=== PATIENT | female | born 1995 | race Caucasian/White ===

== ENCOUNTER 2018-02-22 11:53 | Emergency (ER) | payer OTHER, SELFPAY ==
[2018-02-22 11:54] VITALS: BP 102/54; PULSE 71; RESP 18; TEMP 36.6; O2SAT 99; BMI 21.6
--- NOTE | 2018-02-22 12:21 | EKG12_ITS ---
Test Reason : CHEST OTHER Blood Pressure : / mmHG Vent. Rate : 063 BPM Atrial Rate : 063 BPM P-R Int : 124 ms QRS Dur : 080 ms QT Int : 430 ms P-R-T Axes : -09 065 048 degrees QTc Int : 440 ms Normal sinus rhythm with sinus arrhythmia Normal ECG Confirmed by OJ FOY, MELBA ([id number]), editor in chief newspaper NORM LOCKETT ([id number]) on 03/01/2018 3:23:22 PM Referred By: DIONNE Confirmed By:MELBA MCWILLIAMS MD
--- NOTE | 2018-02-22 12:23 | ED.RN ---
NO OLD EKG'S IN MUSE.
--- NOTE | 2018-02-22 12:35 | RAD_ITS ---
STUDY: X-RAY CHEST REASON FOR EXAM: Female, 22 years old. Anterior left lower chest pain. No known injury. TECHNIQUE: PA and lateral views of the chest. COMPARISON: None. FINDINGS: The lungs are clear and expanded. There is no demonstrated pleural abnormality. Normal size heart. Normal mediastinum and rody. Normal visualized pulmonary arteries. Normal visualized aortic arch and descending thoracic aorta. Normal visualized thoracic spine. Normal visualized ribs, clavicles, and shoulders. There is no demonstrated abnormality of the visualized soft tissue structures of the upper abdomen. RAD/Chest PA and Lateral IMPRESSION: Normal x-ray examination of the chest. Electronically Signed: Tyrese Cuevas MD at 12:49 EDT Tel [phone], Service support ,
[2018-02-22 12:46] LABS: Absolute Lymphocyte Count 1.85 X10^3/ul (0.83-4.51); Absolute Neutrophil Count 2.9 X10^3/uL (2.0-7.7); Basophil# 0.01 X10^3/uL; Basophil% 0.2 % (0-1); Eosinophil# 0.09 X10^3/uL; Eosinophils% 1.7 % (0-5); Hemoglobin 13.6 g/dl (12.0-15.0); Lymphocyte # 1.85 X10^3/ul (4.0); Lymphocyte % 34.5 % (19-41); Mean Corpuscular Volume 88.3 fL (81-99); Mean Platelet Vol. 9.7 fl (6.2-12.0); Monocyte# 0.48 X10^3/uL; Monocyte% 8.9 % (0-10); Neutrophil # 2.93 X10^3/uL (2.7-7.7); Neutrophil % 54.5 % (47-70); POSITIVE COUNT NO; POSITIVE DIFFERENTIAL NO; POSITIVE MORPHOLOGY NO; Platelet Count 242 K/mm3 (150-450); RBC Distribution Width CV 12.3 % (11.6-14.6); RBC Distribution Width SD 39.5 fl (35.1-43.9); Red Blood Count 4.53 M/mm3 (4.2-5.4); White Blood Count 5.4 K/mm3 (4.4-11.0)
[2018-02-22 12:51] LABS: International Normalized Ratio 1.1; Prothrombin Time (Protime)PT. 13.7 SECONDS (11.7-14.9)
[2018-02-22 12:58] LABS: Anion Gap 7 (5-15); BUN 7 mg/dL (7-18); BUN/Creat Ratio 11.3 RATIO (10-20); Calcium,Total 8.6 mg/dL (8.5-10.1); Chloride 105 mmol/L (98-107); Creatinine, Serum 0.62 mg/dL (0.55-1.02); EST Glomerular Filtration Rate 129 mL/min (>60); Est Glom Filt Rate - Afr Amer 156 mL/min (>60); Estimated Creatinine Clearance 129.16 ml/min; Glucose 82 mg/dL (74-106); Potassium 3.9 mmol/L (3.5-5.1); Sodium Level 138 mmol/L (136-145)
--- NOTE | 2018-02-22 13:00 | CT_ITS ---
STUDY: CTA CHEST REASON FOR EXAM: Female, 22 years old. 2 day history of left-sided chest pain and rib pain. RADIATION DOSAGE (If Supplied By Facility): CTDIvol = ( 5.78 ) mGy, DLP = ( 194.48 ) mGycm TECHNIQUE: The examination was performed with the intravenous administration of 75 ml of Isovue 370 contrast material. Post-processing of the angiographic images was performed, with multiplanar reformation and 3D reconstruction. Individualized dose optimization techniques were used for this CT. COMPARISON: Comparison is made with prior chest radiograph done earlier in the day. FINDINGS: Normal enhancement of the main pulmonary artery and right and left pulmonary arteries. Normal enhancement of the bilateral peripheral pulmonary arteries. There is no demonstrated pulmonary embolism. Normal thoracic aorta and visualized great vessels. There is no demonstrated aortic dissection. Normal heart and pericardium. Normal mediastinum. Normal hilar regions. Normal visualized trachea and bronchi. The lungs are well expanded. Normal pulmonary parenchyma. Normal pleura. Normal chest wall structures. Normal osseous structures. Normal visualized upper abdomen. CT/CTA Chest W/WO Contrast IMPRESSION: Normal CTA chest examination, without a demonstrated pulmonary embolism or arterial dissection. Electronically Signed: Tyrese Cuevas MD at 15:02 EDT Tel [phone], Service support ,
[2018-02-22 13:25] VITALS: BP 113/67; PULSE 67; RESP 18; O2SAT 98
--- NOTE | 2018-02-22 15:11 | ED.VISSUMM ---
- ER Visit Summary Date of Service: 02/22/18 Chief Complaint: Chest pain History of Present Illness: The patient is a 22 F who presents with chest pain. She noted it suddenly yesterday while driving home. She complains of left lower sharp stabbing chest pain. This is sometimes worse with deep breathing. She states it is relieved by holding onto it or applying some pressure. She does intermittently feel short of breath as well. She has had diarrhea for the last 3 days but review of systems is otherwise negative. Patient denies history of DVT or pulmonary embolism recent travel or surgery no known cancer. No known coagulopathy. She has not a smoker. She has however on oral control. Physical Examination: Afebrile vitals are normal Moist mucous membranes Heart regular rate and rhythm Lungs are clear Abdomen soft Extremities nontender without edema Alert Test Results: EKG shows normal sinus rhythm at a rate of 63. CBC BMP coagulation studies troponin all normal. Chest x-ray normal. CTA of the chest normal. Emergency Department Course and Treatment: Patient's presentation was concerning to me for possible pneumothorax or pulmonary embolism. Workup as above is normal. Given her stable vitals and negative workup I do not believe her symptoms are due to any serious or life-threatening pathology. She was advised to follow-up with her primary care physician. She does understand return for new or worsening symptoms. Treatment Plan: [] Disposition: Discharge Impression: Chest pain This note was generated with [employer] dictation software. It may contain incorrect words, spelling, and punctuation that were not noted in review of the chart prior to signing ED Disposition - Plan for ED Patient: Chief Complaint: Chest Other Referrals: Jennifer Veronica MD [Primary Care Provider] -
--- NOTE | 2018-02-22 15:13 | ED.DEP ---
ED Disposition - Plan for ED Patient: Chief Complaint: Chest Other Instructions: ED Chest Pain Pleurisy Referrals: Jennifer Veronica MD [Primary Care Provider] -
[2018-02-22 15:36] VITALS: BP 105/62; PULSE 68; RESP 14; O2SAT 98
== END 2018-02-22 15:38 | disposition home or self-care (01) ==
PROVIDERS: Emergency Provider Emergency Medicine; Family Provider Pediatrics; PCP Pediatrics
DX: R07.9 Chest pain, unspecified (principal); R19.7 Diarrhea, unspecified; R06.02 Shortness of breath
CPT/HCPCS: 71046; 71275; 80048; 84484; 85025; 85610; 93005; 99284; Q9967; A4216

== ENCOUNTER 2019-07-29 19:00 | Emergency (ER) | payer OTHER, BC, SELFPAY ==
[2019-07-29 19:01] VITALS: BP 116/79; PULSE 81; RESP 17; TEMP 36.3; O2SAT 99; BMI 22.9
[2019-07-29] MEDS: 0.9% Normal Saline 1,000 ML 1000 ML IV (20:21)
[2019-07-29] MEDS: Morphine 4 MG/ML Syringe IV (20:21)
[2019-07-29 20:36] LABS: Absolute Lymphocyte Count 2.24 X10^3/uL (0.83-4.51); Absolute Neutrophil Count 6.2 X10^3/uL (2.0-7.7); Basophil# 0.05 X10^3/uL; Basophil% 0.5 % (0-1); Eosinophil# 0.03 X10^3/uL; Eosinophils% 0.3 % (0-5); Hematocrit 40.3 % (37-47); Hemoglobin 13.6 g/dL (12.0-15.0); Lymphocyte # 2.24 X10^3/ul (4.0); Lymphocyte % 24.6 % (19-41); Mean Corp Hgb Conc 33.7 g/dL (32-36); Mean Corpuscular Hgb 30.3 pg (27.0-32.0); Mean Corpuscular Volume 89.8 fL (81-99); Monocyte# 0.55 X10^3/uL; NRBC Flagged by Analyzer 0 % (0-5); Neutrophil % 68.3 % (47-70); Platelet Count 246 K/mm3 (150-450); RBC Distribution Width CV 11.9 % (11.6-14.6); RBC Distribution Width SD 38.6 fl (35.1-43.9); Red Blood Count 4.49 M/mm3 (4.2-5.4); White Blood Count 9.1 K/mm3 (4.4-11.0)
[2019-07-29 20:54] LABS: ALB/GLOB Ratio 1.1 RATIO (0.9-2.4); AST(SGOT) 12 U/L (15-37); Alanine Aminotransfer ALT/SGPT 17 U/L (13-56); Alkaline Phosphatase 43 U/L (45-117); Anion Gap 3 (5-15); BUN 11 mg/dL (7-18); Calcium,Total 9.2 mg/dL (8.5-10.1); Chloride 107 mmol/L (98-107); Creatinine, Serum 0.73 mg/dL (0.55-1.02); EST Glomerular Filtration Rate 105 mL/min (>60); Est Glom Filt Rate - Afr Amer 127 mL/min (>60); Estimated Creatinine Clearance 108.77 ml/min; Globulin 3.5 g/dL (2.2-4.2); Glucose 82 mg/dL (74-106); Potassium 3.6 mmol/L (3.5-5.1); Protein, Total 7.5 g/dL (6.4-8.2); Sodium Level 139 mmol/L (136-145)
--- NOTE | 2019-07-29 21:16 | US_ITS ---
HISTORY: Pelvic pain for one month getting worse. Spotting. LMP 07/06/2019. 73 images. Comparison study most recently is a CT scan of the abdomen and pelvis from October 22, 2011 Findings: Endovaginal imaging only: A physiologic amount of free fluid is present. The uterus is 7.3 x 4.1 x 5.3 cm. Myometrium is homogeneous. The endometrial stripe is homogeneous, and measured at 11 mm thick. The cervix is closed. Color Doppler imaging over the myometrium demonstrates flow, but a tiny amount of flow is also suggested centrally within the endometrial canal on one of many images only. The left ovary measures 2.5 x 1.6 x 2.1 cm. Color Doppler and pulse-wave Doppler imaging suggest arterial flow the left ovarian parenchyma. The right ovary measures 2.8 x 1.3 x 1.7 cm. Color Doppler and pulse Doppler imaging suggest arterial flow to right ovarian parenchyma. US/Transvaginal Non- IMPRESSION: No pathology perceived. Small volume of pelvic fluid likely physiologic. at 2226 Reported and signed by: Roni Gamboa MD Electronically Signed: Roni Gamboa MD at 22:25 EST Tel , Service support ,
[2019-07-29 21:19] LABS: Bacteria 0 SEEN /hpf (None Seen); Mucous, Urine 0 SEEN /hpf (<or=2+); Red Blood Cells-Urine 0 SEEN /hpf (0-5); White Blood Cells 0 SEEN /hpf (0-5)
[2019-07-29 21:28] LABS: Color, Urine Yellow (Yellow); Glucose, Dipstick Normal (Normal); Ketone-Dipstick 15 mg/dl (Negative); Leukocyte Esterase-Dipstick Negative /ul (Negative); Nitrite-Dipstick Negative (Negative); Occult Blood-Urine Negative /ul (Negative); Protein-Dipstick Negative (Negative); Specific Gravity, Urine 1.015 (1.002-1.030); Urine Bilirubin Dipstick Negative (Negative); Urine Clarity Sl. Cloudy (Clear); Urine Urobilinogen Normal (Normal)
[2019-07-29 21:41] LABS: Squamous Epithelial Cells - UA 0-5 SEEN /hpf (5-10)
[2019-07-29 21:51] LABS: Internal QC Validated? YES +Cl - CLEAR BKGD; Pregnancy, Serum, hCG Quali. NEGATIVE Negative
--- NOTE | 2019-07-29 22:44 | ED.VISSUMM ---
- ER Visit Summary Date of Service: 07/29/19 Chief Complaint: Pelvic pain History of Present Illness: The patient is a 23 F who presents with pelvic pain that has been constant for the past month but became worse today. Patient describes her pain as cramping and stabbing. Patient states the pain is over the suprapubic area. Patient states she has been taking Tylenol and ibuprofen with no relief. Patient states her pain does improve slightly when she takes a bath. Patient states she is scheduled for an ultrasound next Thursday but her pain became worse tonight. Patient denies any dysuria or hematuria. Admits to some mild spotting and mild vaginal discharge. Patient states her last menstrual period was 07/06/2019 and was normal. Physical Examination: Vital signs are stable. Patient is afebrile. Patient is in no acute distress. Oral mucosa is pink and moist. Neck is supple. Trachea is midline. There is no JVD. Heart was regular rate and rhythm. Lungs are clear and equal bilaterally. Abdomen is soft. Bowel sounds are normal. There is some mild lower abdominal tenderness. There is no rebound or guarding noted. Cranial nerves II through XII are intact. There are no focal motor or sensory deficits noted. Test Results: CBC, comprehensive metabolic profile, urinalysis, and serum hCG were obtained were all within normal limits. Pelvic ultrasound was obtained. There is no acute abnormality. There is no ovarian torsion or ectopic . These were interpreted by the radiologist and reviewed by myself. Emergency Department Course and Treatment: Patient was given a dose of morphine here. Patient was given IV fluids. Patient was advised of her findings. Patient was instructed to follow-up with her PAEDODONTIST in 3 to 5 days for further evaluation. Patient understood and was agreeable with the plan. All questions were answered. Disposition: Discharge home Impression: Pelvic pain This note was generated with [employer] dictation software. It may contain incorrect words, spelling, and punctuation that were not noted in review of the chart prior to signing ED Disposition - Plan for ED Patient: Disposition: Home or Assisted Living Diagnosis: Pelvic pain Instructions: PELVIC PAIN, Unknown Cause Prescriptions: Naproxen [Naprosyn] 500 mg PO BID PRN #20 tab Prescription Printed Referrals: Care Physician,No Primary [Primary Care Provider] - Adriane Jimenez NP-C [Nurse Practitioner] - 5-7 Days
[2019-07-29 23:04] VITALS: BP 106/52; PULSE 55
== END 2019-07-29 23:05 | disposition home or self-care (01) ==
PROVIDERS: Emergency Provider Emergency Medicine
DX: R10.2 Pelvic and perineal pain (principal); N89.8 Other specified noninflammatory disorders of vagina
CPT/HCPCS: 76830; 80053; 81001; 84703; 85025; 93976; 96361; 96374; 99284; J7030; A4216

== ENCOUNTER 2020-11-29 08:48 | Day surgery (SDC) | payer BC, SELFPAY ==
--- NOTE | 2020-11-21 16:13 | HP.PCM_ITS ---
History and Physical Date of Admission: 11/29/20 Alda Fountain MD Physician Specialty: GENERAL MANAGER ROAD PRODUCTION H&P ? Signed Encounter Date: 11/21/2020 Expand AllCollapse All Expand All by Default Hide copied text Hover for details Pre-Op History and Physical ? HPI: The patient is a 37 year old female presenting for discussion regarding permanent sterilization. Pt currently on ocps- would like to continue with laparoscopic bilateral salpingectomy and continue OCPS for ovarian cyst suppression. ? She is scheduled for laparoscpic bilateral salpingectomy, for desires permanent sterilization on 11/29/20. Procedure discussed along with risks, benefits and complications. Other alternatives discussed for management. Consent form signed? Yes. ? ? PAST MEDICAL HISTORY PAST MEDICAL HISTORY Diagnosis Date ? Bilateral ovarian cysts ? ? ? PAST SURGICAL HISTORY PAST SURGICAL HISTORY Procedure Laterality Date ? DELIVERY ONLY ? 03/30/14 ? , low transverse ? PAST SURGICAL HISTORY OF ? ? ? lazy eye repair ? REMOVAL OF TONSILS,<12 Y/O ? ? ? Tonsillectomy ? ? ? CURRENT MEDICATIONS Current Outpatient Medications Medication Sig Dispense Refill ? norgestimate 0.25 mg-ethinyl estradiol 35 mcg (SPRINTEC) 0.25-35 mg-mcg per tablet Take continuously as directed. 3 Package 6 ? No current facility-administered medications for this visit. ? ? ALLERGIES: Seasonal Allergies ? PERSONAL HISTORY: SOCIAL HISTORY Social History ? Tobacco Use ? Smoking status: Never Smoker ? Smokeless tobacco: Never Used Vaping Use ? Vaping Use: Never used Substance Use Topics ? Alcohol use: No ? Drug use: No ? FAMILY HISTORY: FAMILY HISTORY FAMILY HISTORY Problem Relation Age of Onset ? Lipids Father ? ? Diabetes Other ? ? MGGM ? ? REVIEW OF SYMPTOMS: negative except as noted above PHYSICAL EXAMINATION: ? VITALS: Blood pressure 102/60, height 5' 5 (1.651 m), weight 147 lb (66.7 kg), last menstrual period 10/01/2015. ? GENERAL: The patient is well nourished, well hydrated in no acute distress. , The patient is oriented to time, place, and person. NECK: full range of motion ? I Alda Fountain MD Physician Specialty: GENERAL [address] PRODUCTION H&P ? Signed Encounter Date: 11/20/2020 Expand AllCollapse All Expand All by Default Hide copied text Hover for details Pre-Op History and Physical ? HPI: The patient is a 25 year old female presenting for discussion regarding painful heavy menses and possible EM polyp found on ultrasound. Pt was given management options and would like to proceed with surgical intervention with Hysteroscopy, D&C, polypectomy. Pt reports doing well with new pill- had menses still heavy and did have a couple days of light spotting after stopping menses. ? She is scheduled for Hysteroscopy D&C and polypectomy, for AUB, Endometrial polyp on 11/29/20. Procedure discussed along with risks, benefits and complications. Other alternatives discussed for management. Consent form signed? Yes. ? ? PAST MEDICAL HISTORY PAST MEDICAL HISTORY Diagnosis Date ? Abdominal pain, right lower quadrant ? ? Suspected ruptured ovarian cyst ? Acute appendicitis without mention of peritonitis 03/25/2011 ? Dysmenorrhea ? ? HSV (herpes simplex virus) anogenital infection 2016 ? PMH - PAST MEDICAL HISTORY OF 11/06/2001 ? color vision - normal ? PMH - PAST MEDICAL HISTORY OF ? ? Started Menstrual Period 04/02 ? ? PAST SURGICAL HISTORY PAST SURGICAL HISTORY Procedure Laterality Date ? LAPAROSCOPY, SURGICAL, APPENDECTOMY ? 03/25/11 ? ? ? CURRENT MEDICATIONS Current Outpatient Medications Medication Sig Dispense Refill ? valACYclovir (VALTREX) 500 mg tablet Take 1 tablet by mouth twice daily. 14 tablet 3 ? L-Norgest and E Estradiol-E Estrad (SEASONIQUE) 0.15 mg-30 mcg (84)/10 mcg (7) Take 1 tablet by mouth once daily. 1 Package 4 ? No current facility-administered medications for this visit. ? ? ALLERGIES: Patient has no known allergies. ? PERSONAL HISTORY: SOCIAL HISTORY Social History ? Tobacco Use ? Smoking status: Never Smoker ? Smokeless tobacco: Never Used Vaping Use ? Vaping Use: Never used Substance Use Topics ? Alcohol use: No ? Drug use: No ? FAMILY HISTORY: FAMILY HISTORY FAMILY HISTORY Problem Relation Age of Onset ? other (Kidney Stones) Mother ? ? other (Crohn's) Mother ? ? other (congenital hip disease) Father ? ? Hypertension Maternal Grandmother ? ? Cancer Maternal Grandfather ? ? Cancer Paternal Grandfather ? ? Paternal side ? Cancer Maternal Uncle ? ? Hodgkins ? ? REVIEW OF SYMPTOMS: negative except as noted above PHYSICAL EXAMINATION: ? VITALS: Blood pressure 108/60, height 5' 6 (1.676 m), weight 135 lb (61.2 kg), last menstrual period 11/01/2020. ? GENERAL: The patient is well nourished, well hydrated in no acute distress. , The patient is oriented to time, place, and person. NECK: full range of motion ? IMPRESSION: AUB, endometrial polyp ? PLAN: Hysterscopy, D&C, polypectomy with symphion. ? Pt has been counseled on risks/benefits and alternatives of surgery including but not limited to anesthesia, bleeding, infection, uterine perforation with subsequent injury to pelvic structures including bowel, bladder, ureters and vessels. Pt wishes to proceed with surgery at this time. ? Covid testing reviewed- not vaccinated ? ? ? I have reviewed and updated past medical and surgical history, medications and allergies Alda Fountain MD ?8:41 AM Office Visit on 11/20/2020 Office Visit on 11/20/2020 Note shared with patient
[2020-11-29] VITALS (11 sets, daily range): BP systolic 101–112; BP diastolic 58–74; PULSE 59–71; RESP 16–18; TEMP 36.6–36.8; O2SAT 97–100; BMI 22.0
[2020-11-29] MEDS: Lactated Ringers 1,000 ML 100 ML IV ×3 (08:45→11:25)
[2020-11-29 09:08] LABS: Internal QC Validated? YES +Cl - CLEAR BKGD; Pregnancy, Urine Negative Negative
[2020-11-29 09:26] LABS: Hematocrit 40.4 % (37-47); Hemoglobin 13.5 g/dL (12.0-15.0); Mean Corp Hgb Conc 33.4 g/dL (32-36); Mean Corpuscular Hgb 29.9 pg (27.0-32.0); Mean Corpuscular Volume 89.6 fL (81-99); Mean Platelet Vol. 9.9 fl (6.2-12.0); Platelet Count 256 K/mm3 (150-450); RBC Distribution Width CV 12.3 % (11.6-14.6); RBC Distribution Width SD 40.5 fl (35.1-43.9); Red Blood Count 4.51 M/mm3 (4.2-5.4); White Blood Count 6.4 K/mm3 (4.4-11.0)
--- NOTE | 2020-11-29 10:15 | EMB_PTH ---
PATIENT: PALMER KIM [place] [facility] [place][id number] AGE/SX: 25/F ROOM: RE11/29/[address]: Dr. Alda Hoff, MDDOB: 1995 BED: DIS: 11/29/2020 SPEC #: [id number] RECD: 11/29/20 12:44 STATUS: TOM JAZLYN #: [id number] JOSEPHINE: 11/29/20 10:[address]: Alda Hoff DEPT: SURGICAL PATHOLOGY RECD BY: Beronica Quinteros ENTERED: 11/29/20 13:10 SP TYPE: ENDOM BX/C VILLA DR: No Primary Care Phys Tissues: Endometrium, NOS Procedures: Surgery Specimen Level IV HEADER OPERATION: Hysteroscopy, D & C, polypectomy PRE-OP DIAGNOSIS: Abnormal uterine bleeding, endometrial polyp TISSUE SUBMITTED: Endometrial curettings, endometrial polyp MICROSCOPIC DIAGNOSIS Endometrium, curettings: Polypoid fragments of secretory endometrium. Fragments of benign endocervix. AM:malia 11/30/2020 MICROSCOPIC DESCRIPTION Slides are reviewed. GROSS DESCRIPTION Received in fixative is one container labeled with the patient's name and designated endometrial curettings and polyp. The specimen consists of multiple irregular fragments of red-pavon soft tissue that in aggregate measure 3 x 2 x 0.3 cm. The specimen is totally submitted in one cassette. / AM:malia 11/29/20 TC:5 CPT: 76609
--- NOTE | 2020-11-29 10:54 | OP.PCM_ITS ---
Report of Operation Date of Procedure: 11/29/20 Pre-Operative Diagnosis: AUB Post-Operative Diagnosis: same Surgery/Procedure Performed:: Hysteroscopy, D&C Description of Surgical Findings:: large amount of endometrial tissue and polypoid like tissue. Surgeon: Alda Hoff Type of Anesthesia: MAC Specimen's removed: endometrial curetting and endometrial polyps Drains: none Estimated Blood Loss (mL): 5 Fluids Replaced: 600 Description of Procedure: Informed consent was obtained the patient was taken the operating room she was placed in supine position. She was given anesthesia. She was then placed in the [facility] where she was prepped and draped in the normal sterile fashion. bladder drained. At this time the weighted speculum was placed in the posterior fornix of vagina. Single-tooth tenaculum was used to gently grasp the anterior lip the cervix. At this time the uterine cavity was sounded to approximately 8cm. Gentle dilatation was performed once adequate dilatation of the cervix was achieved the hysteroscope using normal saline as a distention medium was placed. Tubal ostia visualized. large amount of endometrial tissue and polypoid tissue apparent. Sharp Curettage performed with large amount of tissue expelled. Hysteroscope was reinserted and uterine cavity cleared of polypoid tissue ostia again seen and uterine cavity intact. Tissue will be sent to pathology for evaluation. Tenaculum removed. Good hemostasis. Instrument, lap count correct x 2. Vaginal Sweep was negative. Grafts/Implants Used: none Procedure Start Time: 10:39 Procedure Stop Time: 10:48 Admit VTE Documentation VTE Present on Admission: Yes VTE Mechan Device Prophylaxis: SCD's VTE Pharm Prophylaxis ordered?: No
--- NOTE | 2020-11-29 10:58 | EX.PCM.DISCH ---
Discharge Instructions Procedure D&C Diet Discharge Diet: No restrictions Activity May resume sexual activity in: 1 week Dressing / Incision Call your doctor if you observe: Fever of 101 or Higher, Inability to urinate, Using more than 1 pad per hour and Uncontrolled pain Follow Up Care Please Follow Up With: Alda Hoff MD When: 1-2 weeks post OP if you need an appointment please call [phone] Test Results: Test results from this visit will be discussed in further detail at your follow-up appointment, if applicable. Discharge Plan Admission Attending Provider: Alda Hoff Primary Care Provider: Care Physician,Jody Primary Discharge Orders/Prescriptions Prescriptions: No Action valacyclovir [Valtrex] 500 mg Tablet 500 mg PO DAILY PRN (Reason: Cold Sores) RF: 0 L norgest/e.estradiol-e.estrad [Seasonique] 0.15 mg-30 mcg (84)/10 mcg (7) Tablets,Dose Pack,3 Month 1 tab PO DAILY RF: 0
== END 2020-11-29 12:51 | disposition home or self-care (01) ==
LOC: SDC 08:49 → AC 08:50
PROVIDERS: Referring Provider Obstetrics & Gynecology; Visit Provider Obstetrics & Gynecology
PROC: 0UB98ZZ Excision of Uterus, Via Natural or Artificial Opening Endoscopic (ICD-10-PCS; CPT 58558; principal; 2020-11-29 10:00)
DX: N93.9 Abnormal uterine and vaginal bleeding, unspecified (principal); N84.0 Polyp of corpus uteri; A60.00 Herpesviral infection of urogenital system, unspecified; Z79.899 Other long term (current) drug therapy; Z79.3 Long term (current) use of hormonal contraceptives
CPT/HCPCS: 00952; 58558; 81025; 85027; 87426; 88305; C9803; J7120

== ENCOUNTER 2022-07-07 22:03 | Emergency (ER) | payer BC, SELFPAY ==
[2022-07-07 22:03] VITALS: BP 109/80; PULSE 60; RESP 18; TEMP 36.4; O2SAT 99; BMI 21.4
--- NOTE | 2022-07-07 22:54 | EX.ED.DYSGE1 ---
HPI History of Present Illness Chief Complaint: Chest Pain Narrative Narrative: Patient presents with left parasternal chest pain for a few days. She is also 16 weeks wants to make sure that baby is okay. She has no abdominal pain she has no dysuria hematuria or vaginal bleeding. She has no pleuritic component as far as the chest pain. She has no fever chills or cough. PFSH PFSH Medical History Heartburn Injury of back Loss of consciousness Non-smoker Home Medications + Iron 1 tab PO/SL DAILY 07/07/22 [History Last Taken Unknown] aspirin 81 mg chewable tablet 162 mg PO DAILY 07/07/22 [History Last Taken Unknown] cephalexin 500 mg capsule 500 mg PO Q6 #28 CAPSULES 07/07/22 [Rx Last Taken Unknown] Allergy/AdvReac Type Severity Reaction Status Date / Time No Known Allergies Allergy Verified 07/07/22 22:05 Surgical History History of appendectomy Social History (Updated 05/13/17 @ 11:40 by Adriane Jimenez NP, HEALTH CARE ATTORNEY-C) Smoking Status: Never smoker alcohol intake: never substance use type: does not use what type of physical activity do you participate in: walking and weight training frequency: 3-4 times per week duration: 30-45 minutes/day seatbelt use: always do you feel safe at home: Yes ROS ROS ED ROS Narrative Past medical history: Reviewed Medications: Reviewed Social history: Noncontributory Review of systems: All systems negative except as indicated General: No fever Eyes: No visual changes ENT: No upper airway congestion, normal voice Neck: No neck pain Cardiovascular: Chest pain as in HPI Respiratory: No shortness of breath or cough Gastrointestinal: No abdominal pain, nausea vomiting or diarrhea Genitourinary: No dysuria, no vaginal bleeding Musculoskeletal: Denies myalgias no difficulty with ambulation Skin: No rash Neurological: No memory loss, confusion or any focal weakness Psych: No recent behavioral changes Hematologic: No easy bleeding or easy bruising EXAM Physical Exam Narrative Exam Narrative: Physical exam General: Well nourished, Well developed, No Acute Distress Head: Normocephalic, Atraumatic Eyes: Conjunctiva not pale ENT: Moist mucous membranes Neck: Supple, Nontender, No lymphadenopathy Cardiovascular: Regular rate, Regular rhythm Chest wall: She has quite reproducible left-sided parasternal chest pain. This is her pain that she is complaining about. Respiratory: No distress, CTA bilaterally Abdomen: Soft, Nontender, I can appreciate that she has a gravid based on my exam. Back: Nontender, Normal Inspection. Negative for: CVA tenderness Extremities: Nontender, No edema Skin: Normal color, No rash Neurological: Alert, Normal Strength, Normal Sensation Const Vital Signs: 07/07/22 22:03 07/07/22 22:39 Temperature 97.6 F L Temperature Source Temporal Pulse Rate 60 Respiratory Rate 18 Respiratory Effort Non-Labored Blood Pressure 109/80 Blood Pressure Mean 89 Pulse Ox 99 Oxygen Delivery Method Room Air MDM MDM MDM Narrative Medical decision making narrative: Patient urinalysis shows some bacteria and some leuk esterases because of we will be cautious and treat her. She does have some left-sided flank pain. As far as her chest, she likely has costochondritis. She has reproducible chest wall pain is in the costochondral region. Because of the we will avoid a chest x-ray especially that her lungs are clear. I thought about a chest x-ray but we talked with her and her significant other who is in the room. EKG is unremarkable, I do not believe the patient needs troponin or any other type of blood work. I warned her against NSAIDs and told her she can take Tylenol [id number]. Lab Data Labs: Laboratory Results - last 24 hr 07/07/22 22:50 Urine Color Yellow Urine Clarity Clear Urine pH 7.0 Ur Specific [place] 1.010 Urine Protein Negative Urine Glucose (UA) Normal Urine Ketones Negative Urine Occult Blood Negative Urine Nitrite Negative Urine Bilirubin Negative Urine Urobilinogen Normal Ur Leukocyte Esterase 25 H Urine RBC 0 SEEN Urine WBC 0-5 SEEN Ur Squamous Epith Cells 0-5 SEEN Urine Bacteria 1+ Urine Mucus 0 SEEN EKG Initial EKG: Comments: Sinus rhythm with a rate of 70. Normal NV and QTc intervals. No ischemic changes. No signs of heart strain. Interpreted by emergency doctor Discharge Plan Triage Chief Complaint: Chest Pain ED Provider: Kai Jason Dx/Rx/DC Orders Clinical Impression: Acute chest wall pain, UTI (urinary tract infection), First trimester Instructions: UTIs Understanding, First Trimester, ED Chest Pain, Noncardiac Prescriptions: New cephalexin 500 mg capsule 500 mg PO Q6 Qty: 28 0RF No Action aspirin [Baby Aspirin] 81 mg Tablet,Chewable 162 mg PO DAILY + Iron 1 tab PO/SL DAILY Primary Care Provider: Care Physician,No Primary Referrals: Care Physician,No Primary [Primary Care Provider] - 3-5 Days Disposition Disposition: Home, Self Care
[2022-07-07 23:14] LABS: Mucous, Urine 0 SEEN /hpf (<or=2+); Red Blood Cells-Urine 0 SEEN /hpf (0-5)
[2022-07-07 23:17] LABS: Color, Urine Yellow (Yellow); Glucose, Dipstick Normal (Normal); Ketone-Dipstick Negative (Negative); Leukocyte Esterase-Dipstick 25 /ul (Negative); Nitrite-Dipstick Negative (Negative); Occult Blood-Urine Negative /ul (Negative); Protein-Dipstick Negative (Negative); Urine Bilirubin Dipstick Negative (Negative); Urine Clarity Clear (Clear); Urine Urobilinogen Normal (Normal)
--- NOTE | 2022-07-07 23:34 | EKG12_ITS ---
Test Reason : CP Blood Pressure : / mmHG Vent. Rate : 070 BPM Atrial Rate : 070 BPM P-R Int : 118 ms QRS Dur : 082 ms QT Int : 406 ms P-R-T Axes : 026 069 050 degrees QTc Int : 438 ms Normal sinus rhythm with sinus arrhythmia Normal ECG Confirmed by MAGGIE FOY, YULIA ([id number]), news video editor WILLOW MAHAJAN ([id number]) on 07/08/2022 10:23:00 AM Referred By: Confirmed By:YULIA SERRANO MD
[2022-07-07 23:46] LABS: Bacteria 1+ /hpf (None Seen); Squamous Epithelial Cells - UA 0-5 SEEN /hpf (5-10); White Blood Cells 0-5 SEEN /hpf (0-5)
[2022-07-07 23:59] VITALS: BP 112/71; PULSE 68; RESP 16; O2SAT 98
[2022-07-08] MEDS: Cephalexin 250 MG Capsule 500 MG PO (00:01)
== END 2022-07-08 00:32 | disposition home or self-care (01) ==
PROVIDERS: Emergency Provider Emergency Medicine; Visit Provider Emergency Medicine
DX: O26.892 Other specified pregnancy related conditions, second trimester (principal); R07.89 Other chest pain; O23.42 Unspecified infection of urinary tract in pregnancy, second trimester; Z3A.16 16 weeks gestation of pregnancy
CPT/HCPCS: 81001; 93005; 99282

== ENCOUNTER 2022-07-11 13:49 | Emergency (ER) | payer BC, SELFPAY ==
[2022-07-11 13:50] VITALS: BP 115/66; PULSE 84; RESP 14; TEMP 36.2; O2SAT 97; BMI 21.9
--- NOTE | 2022-07-11 15:11 | EKG12_ITS ---
Test Reason : CP Blood Pressure : / mmHG Vent. Rate : 076 BPM Atrial Rate : 076 BPM P-R Int : 114 ms QRS Dur : 078 ms QT Int : 386 ms P-R-T Axes : 010 071 046 degrees QTc Int : 434 ms Normal sinus rhythm Normal ECG Confirmed by MELBA MCWILLIAMS MD ([id number]), offline editor WILLOW MAHAJAN ([id number]) on 07/14/2022 1:54:15 PM Referred By: WOJCIECH Confirmed By:MELBA MCWILLIAMS MD
--- NOTE | 2022-07-11 15:14 | ED.VIS.CHEST ---
HPI History of Present Illness Chief Complaint: Chest Pain Informant: patient Narrative Narrative: 16 weeks gestation presents intermittent chest pain for the past 5 days. Reports was seen Thursday night EKG and found to have UTI on antibiotics. No dysuria. States had mild spotting on Thursday that resolved. Occasional pelvic cramping. No current bleeding no abnormal discharge. Reports her chest pains have moved down to her right lower chest reports dyspnea worse with exertion. Denies cough sensations. Denies fevers. Denies recent travel surgery or immobilizations. No history of PE or DVT. Denies family history of MIs at a young age. Denies tobacco history. She is on vitamins. Reports had a miscarriage at 6 weeks gestation last November. She reports her blood type is a positive. She is followed by Dr. Courtney. CVD Risk Factors: Negative for Hypertension, Diabetes, Hypercholesterolemia, Family History 1' </=55 or Smoking PE Risk Factors: Negative for Recent Travel/Surgery, Recent Immobilization, Prior DVT or PE, Cancer or OCP + Smoking + >/=35 PFSH PFSH Medical History Heartburn Injury of back Loss of consciousness Non-smoker Home Medications + Iron 1 tab PO/SL DAILY 07/07/22 [History Last Taken Unknown] aspirin 81 mg chewable tablet 162 mg PO DAILY 07/07/22 [History Last Taken Unknown] cephalexin 500 mg capsule 500 mg PO Q6 #28 CAPSULES 07/07/22 [Rx Last Taken Unknown] Allergy/AdvReac Type Severity Reaction Status Date / Time No Known Allergies Allergy Verified 07/11/22 13:50 Surgical History History of appendectomy Social History Smoking Status: Never smoker alcohol intake: never substance use type: does not use what type of physical activity do you participate in: walking and weight training frequency: 3-4 times per week duration: 30-45 minutes/day seatbelt use: always do you feel safe at home: Yes ROS ROS ED Constitutional Constitutional ED: Denies chills, fever(s) or sweats Eyes Eyes: Denies change in vision ENT ENT ED: Denies dysphagia or sore throat Cardiovascular Cardiovascular: Reports chest pain; Denies leg edema, palpitations or racing heartbeat Respiratory/Chest Respiratory/Chest: Reports dyspnea and dyspnea on exertion; Denies cough Gastrointestinal Gastrointestinal: Denies abdominal pain, diarrhea, nausea or vomiting Genitourinary Genitourinary ED: Denies dysuria, hematuria or urinary frequency Musculoskeletal Musculoskeletal: Denies back pain, extremity pain or neck pain Integumentary Denies rash or wounds Neurologic Neurologic: Denies headache(s), paresthesias or weakness EXAM Physical Exam Const Vital Signs: 07/11/22 13:50 07/11/22 16:29 07/11/22 16:30 Temperature 97.2 F L Temperature Source Temporal Pulse Rate 84 Respiratory Rate 14 Respiratory Effort Normal Non-Labored Respiratory Pattern Normal Blood Pressure 115/66 Blood Pressure Mean 82 Pulse Ox 97 Oxygen Delivery Method Room Air Room Air 07/11/22 15:49 Temperature Temperature Source Pulse Rate 55 L Respiratory Rate 16 Respiratory Effort Respiratory Pattern Blood Pressure 96/56 L Blood Pressure Mean 69 Pulse Ox 98 Oxygen Delivery Method Room Air Positive well nourished and well developed General Appearance ED: well developed and NAD HEENT Reports moist mucous membranes normocephalic and atraumatic Eyes PERRL, EOMs intact bilaterally and conjunctivae normal General Eye ED: Yes normal appearance of both eyes Neck no lymphadenopathy and supple General: Negative for tenderness Chest Wall Chest: Negative for tenderness Resp normal respiratory effort and normal air movement Effort and Inspection: symmetric chest movement; Negative for respiratory distress Cardio regular rate, regular rhythm and no murmurs Peripheral Pulses: pulses 2+ throughout GI normal to inspection, nondistended, normoactive bowel sounds and non-tender GI Narrative: Slight gravid abdomen, nontender no guarding or rebound Palpation: Negative for guarding or rebound tenderness present Back/Spine no CVA tenderness and no thoracic nor lumbar tenderness Extremity normal to inspection General Extremety ED: Negative for edema or tenderness General Extremity: Negative for edema Neuro oriented x3 and no sensory deficits noted Sensorium / Orientation: awake and alert Skin no rashes or lesions noted and no wounds Heart Score History: Slightly/Non-Suspicious ECG: Normal Age: </= 45 years Risk Factors: No Risk Factors Troponin: </= Normal Limit Score: 0 MDM MDM MDM Narrative Medical decision making narrative: Interventions / MDM: Differential diagnosis: Atypical chest pain, ACS, pulmonary embolism, costochondritis Diagnosis considered but do not suspect: Pneumothorax however normal breath sounds. My EKG interpretation: Sinus rate of 76, no ST or T wave changes. Imaging independently reviewed and interpreted by myself: 2 view chest x-ray no acute process. No pneumothorax. External documents reviewed: N/A Test considered but not ordered:N/A ED course: Bedside ultrasound performed by myself heart tones 156. Positive movement. Patient intermittent symptoms as worsening since being seen 3 days ago. Reports exertional dyspnea. Vitals are stable. Will check cardiac labs and D-dimer. Labs stable normal troponin. D-dimer negative 0.37. Two-view chest x-ray obtained interpreted by myself shows no acute process. Patient reassured. She will finish her antibiotics from a UTI which was started. She is currently asymptomatic. She will keep her follow-up as an outpatient with her OB. She is given follow-up with her PCP. Return precautions. All questions were answered. Re-evaluation: stable Disposition discussed with patient/family/significant other: Patient Case discussed with consulting clinician: N/A Lab Data Attestation: I reviewed the patient's lab results. Labs: Laboratory Results - last 24 hr 07/11/22 07/11/22 07/11/22 15:50 15:50 15:50 WBC 9.4 RBC 4.19 L Hgb 12.7 Hct 38.5 MCV 91.9 MCH 30.3 MCHC 33.0 RDW Std Deviation 41.8 RDW Coeff of Royal 12.6 Plt Count 223 MPV 9.7 Immature Gran % (Auto) 0.600 Neut % (Auto) 68.9 Lymph % (Auto) 23.4 [place] % (Auto) 5.9 Eos % (Auto) 1.0 Baso % (Auto) 0.2 Absolute Neuts (auto) 6.5 Absolute Lymphs (auto) 2.20 Nucleated RBC % 0 D-Dimer Quant (PE/DVT) 0.37 Sodium 140 Potassium 3.9 Chloride 107 Carbon Dioxide 27.0 Anion Gap 6 BUN 6 L Creatinine 0.50 L Estim Creat Clear Calc 161.02 Est GFR (MDRD) Af Amer 194 Est GFR (MDRD) Non-Af 160 BUN/Creatinine Ratio 12.1 Glucose 80 Calcium 8.7 Troponin I High Sens 4 EKG Initial EKG: Attestation: I personally reviewed and interpreted this EKG as follows: Comments: Sinus rate of 76, no ST or T wave ch Discharge Plan Triage Chief Complaint: Chest Pain ED Provider: Le,Tato Dx/Rx/DC Orders Clinical Impression: Chest pain, Second trimester , Dyspnea Instructions: 2nd Trimester Changes, ED Chest Pain, Noncardiac, ED Dyspnea Prescriptions: No Action aspirin [Baby Aspirin] 81 mg Tablet,Chewable 162 mg PO DAILY + Iron 1 tab PO/SL DAILY cephalexin 500 mg capsule 500 mg PO Q6 Qty: 28 0RF Stand Alone Forms: Work / School Excuse Primary Care Provider: Care Physician,No Primary Referrals: Ida Moreira MD [Med Staff - Multiple Punch Press Operator] - 1-2 Weeks Chloe Courtney MD [Med Staff - Active Staff] - Keep Sina appointment Care Physician,No Primary [Primary Care Provider] - Activity Restrictions/Additional Instructions: Cardiac work-up negative D-dimer negative. Chest x-ray negative. Use Tylenol as needed. Follow-up with your doctor. Return if any worsening symptoms. Disposition Disposition: Home, Self Care
[2022-07-11 15:49] VITALS: BP 96/56; PULSE 55; RESP 16; O2SAT 98
[2022-07-11 16:03] LABS: Absolute Neutrophil Count 6.5 X10^3/uL (2.0-7.7); Basophil# 0.02 X10^3/uL; Basophil% 0.2 % (0-1); Eosinophil# 0.09 X10^3/uL; Hematocrit 38.5 % (37-47); Hemoglobin 12.7 g/dL (12.0-15.0); Lymphocyte % 23.4 % (19-41); Mean Corpuscular Hgb 30.3 pg (27.0-32.0); Mean Corpuscular Volume 91.9 fL (81-99); Mean Platelet Vol. 9.7 fl (6.2-12.0); Monocyte# 0.55 X10^3/uL; Monocyte% 5.9 % (0-10); NRBC Flagged by Analyzer 0 % (0-5); Neutrophil # 6.47 X10^3/uL (2.7-7.7); Neutrophil % 68.9 % (47-70); Platelet Count 223 K/mm3 (150-450); RBC Distribution Width CV 12.6 % (11.6-14.6); RBC Distribution Width SD 41.8 fl (35.1-43.9); Red Blood Count 4.19 M/mm3 (4.2-5.4); White Blood Count 9.4 K/mm3 (4.4-11.0)
[2022-07-11 16:22] LABS: D-Dimer Quantitative (DVT/PE) 0.37 FEU/ug/m (0.27-0.49)
[2022-07-11 16:28] LABS: Anion Gap 6 (5-15); BUN 6 mg/dL (7-18); BUN/Creat Ratio 12.1 RATIO (10-20); Calcium,Total 8.7 mg/dL (8.5-10.1); Chloride 107 mmol/L (98-107); EST Glomerular Filtration Rate 160 mL/min (>60); Est Glom Filt Rate - Afr Amer 194 mL/min (>60); Estimated Creatinine Clearance 161.02 ml/min; Glucose 80 mg/dL (74-106); Potassium 3.9 mmol/L (3.5-5.1); Sodium Level 140 mmol/L (136-145); Troponin-I HS (w/2H Reflex) 4 pg/mL (3.0-54.0)
[2022-07-11 17:00] VITALS: BP 104/58; PULSE 55; RESP 16; O2SAT 98
--- NOTE | 2022-07-11 17:08 | RAD_ITS ---
STUDY: X-RAY CHEST REASON FOR EXAM: Female, 26 years old. pain -- shield for TECHNIQUE: PA and lateral COMPARISON: February 22, 2018 FINDINGS: The lungs are clear and expanded. Tiny granulomatous calcification in right upper lobe. There is no demonstrated pleural abnormality. Normal size heart. Normal mediastinum and rody. Normal visualized pulmonary arteries. Normal visualized aortic arch and descending thoracic aorta. Normal visualized thoracic spine. Normal visualized ribs, clavicles, and shoulders. There is no demonstrated abnormality of the visualized soft tissue structures of the upper abdomen. No significant change since prior exam RAD/Chest PA and Lateral IMPRESSION: No acute cardiopulmonary pathology. Electronically Signed: Meet Moore MD at 17:32 EST ,
[2022-07-11 18:00] LABS: Reflex Troponin-HS? (from REC) Y
== END 2022-07-11 18:02 | disposition home or self-care (01) ==
PROVIDERS: Emergency Provider Emergency Medicine; Visit Provider Emergency Medicine
DX: O26.892 Other specified pregnancy related conditions, second trimester (principal); R10.2 Pelvic and perineal pain; R06.00 Dyspnea, unspecified; Z87.891 Personal history of nicotine dependence; R07.9 Chest pain, unspecified; O23.42 Unspecified infection of urinary tract in pregnancy, second trimester; Z3A.00 Weeks of gestation of pregnancy not specified
CPT/HCPCS: 71046; 80048; 84484; 85025; 85379; 93005; 99284; A4216

== ENCOUNTER 2022-09-27 19:00 | Outpatient (CLI) | payer BC, SELFPAY ==
[2022-09-27 19:17] VITALS: BP 138/74; PULSE 74; TEMP 37.2
[2022-09-27 19:18] VITALS: PULSE 68; O2SAT 99
[2022-09-27 19:27] VITALS: BP 139/82; PULSE 67
[2022-09-27 19:45] VITALS: BMI 24.2
[2022-09-27] MEDS: LACTATED RINGERS 500 ML 999 ML IV (19:55)
[2022-09-27] MEDS: Lactated Ringers 1,000 ML 150 ML IV (19:55)
[2022-09-27 20:08] LABS: Mucous, Urine 0 SEEN /hpf (<or=2+)
[2022-09-27 20:09] LABS: ROM Internal Control Test YES-OK TO RESULT pt. (Internal QC); ROM Patient Test Negative (Negative)
[2022-09-27 20:09] LABS: Absolute Lymphocyte Count 0.96 X10^3/uL (0.83-4.51); Absolute Neutrophil Count 10.8 X10^3/uL (2.0-7.7); Basophil# 0.01 X10^3/uL; Basophil% 0.1 % (0-1); Eosinophil# 0.01 X10^3/uL; Eosinophils% 0.1 % (0-5); Hemoglobin 12.3 g/dL (12.0-15.0); Lymphocyte # 0.96 X10^3/ul (0.83-4.51); Lymphocyte % 7.7 % (19-41); Mean Corp Hgb Conc 35.1 g/dL (32-36); Mean Corpuscular Hgb 31.9 pg (27.0-32.0); Mean Corpuscular Volume 90.9 fL (81-99); Monocyte# 0.63 X10^3/uL; Monocyte% 5.1 % (0-10); NRBC Flagged by Analyzer 0 % (0-5); Neutrophil % 86.5 % (47-70); Platelet Count 200 K/mm3 (150-450); RBC Distribution Width CV 13.3 % (11.6-14.6); RBC Distribution Width SD 44.2 fl (35.1-43.9); Red Blood Count 3.85 M/mm3 (4.2-5.4); White Blood Count 12.5 K/mm3 (4.4-11.0)
[2022-09-27 20:17] LABS: Color, Urine Yellow (Yellow); Glucose, Dipstick Normal (Normal); Ketone-Dipstick 50 mg/dl (Negative); Leukocyte Esterase-Dipstick 25 /ul (Negative); Nitrite-Dipstick Negative (Negative); Occult Blood-Urine Negative /ul (Negative); Protein-Dipstick Negative (Negative); Urine Bilirubin Dipstick Negative (Negative); Urine Clarity Clear (Clear); Urine Urobilinogen Normal (Normal)
[2022-09-27 20:29] LABS: Bacteria RARE /hpf (None Seen); Red Blood Cells-Urine 0-5 SEEN /hpf (0-5); Squamous Epithelial Cells - UA 0-5 SEEN /hpf (5-10); White Blood Cells 0-5 SEEN /hpf (0-5)
[2022-09-27] MEDS: Cefazolin 2 GM in 0.9% Normal Saline 100 ML IV (20:33)
[2022-09-27] MEDS: Acetaminophen 500 MG Tablet PO (20:33)
--- NOTE | 2022-09-27 20:46 | CT_ITS ---
STUDY: CT ABDOMEN AND PELVIS WITHOUT CONTRAST REASON FOR EXAM: Female, 26 years old. Left flank pain x1 week, gross hematuria on 09/22, 27 weeks , history of appendectomy. RADIATION DOSAGE (If Supplied By Facility): CTDIvol = ( 7.00 ) mGy, DLP = ( 351.49 ) mGycm TECHNIQUE: Transaxial images were obtained from the dome of the diaphragm to the symphysis pubis without oral contrast, and without intravenous contrast. Sagittal and coronal images were reconstructed. Individualized dose optimization techniques were used for this CT. COMPARISON: None. FINDINGS: The visualized lung bases are unremarkable. The visualized portions of the heart are within normal limits. Normal liver. Normal gallbladder and extrahepatic biliary system. Normal spleen. Normal pancreas. Normal bilateral adrenal glands. Small calculi. Inferior bilateral kidneys evident on image 76 of series 601. 2.5 mm calculus is seen in the proximal left ureter on image 76 of series 2 and L3 level, visible on electrician's helper topogram. Normal visualized stomach. Normal small intestine. Normal colon. There are surgical clips in the region of the appendix consistent with a prior appendectomy. Normal abdominal aorta. Normal inferior vena cava. Normal retroperitoneum. Normal urinary bladder. Intrauterine fetus is noted. Normal abdominal wall. Normal osseous structures. CT/Abdomen/Pelvis without Cont IMPRESSION: 1. 2.5 mm proximal left ureter calculus with slight left hydronephrosis. 2. Bilateral nephrolithiasis. Electronically Signed: Kan Morales (Brooks), at 21:39 EDT ,
[2022-09-27 21:25] LABS: Anion Gap 8 (5-15); BUN 10 mg/dL (7-18); BUN/Creat Ratio 12.6 RATIO (10-20); Calcium,Total 8.8 mg/dL (8.5-10.1); Chloride 106 mmol/L (98-107); EST Glomerular Filtration Rate 93 mL/min (>60); Est Glom Filt Rate - Afr Amer 112 mL/min (>60); Estimated Creatinine Clearance 100.63 ml/min; Glucose 80 mg/dL (74-106); Potassium 3.8 mmol/L (3.5-5.1); Sodium Level 140 mmol/L (136-145)
[2022-09-27] MEDS: Ondansetron 4 MG/2 ML Vial IV (22:21)
--- NOTE | 2022-09-28 08:22 | OB.TRI.NOTE ---
HPI - General General Date of Service: 09/26/22 HPI Narrative PALMER KIM, is a 26 F @ 27 weeks who presents for lower back pain, Vomiting- recenlty completed treated UTI abx - macrobid for 5 days PFSH PFS Medical History Heartburn Injury of back Loss of consciousness Non-smoker Home Medications + Iron 1 tab PO/SL DAILY 07/07/22 [History Last Taken 09/27/22] aspirin 81 mg chewable tablet 162 mg PO DAILY miscarriage 07/07/22 [History Last Taken 09/24/22] cephalexin 500 mg capsule 500 mg PO Q6 #28 CAPSULES 07/07/22 [Rx Last Taken Unknown] Allergy/AdvReac Type Severity Reaction Status Date / Time No Known Allergies Allergy Verified 07/11/22 13:50 Surgical History History of appendectomy Social History Smoking Status: Never smoker alcohol intake: never substance use type: does not use what type of physical activity do you participate in: walking and weight training frequency: 3-4 times per week duration: 30-45 minutes/day seatbelt use: always do you feel safe at home: Yes History 0 Elective abortions Hx Para Spontaneous abortions Hx # Term Pregnancies Ectopic pregnancies Hx # Pregnancies Multiple births # of living children NST FHR Rate Baby A Baseline: 150 Variability:: Moderate Accelerations:: 15 x 15 Decelerations:: None NST Reactive:: Yes FHR Category:: Category I Uterine Activity:: none Assessment & Plan (1) Back pain affecting in second trimester: (2) with nephrolithiasis in second trimester: PLAN: Plan @ 27 weeks- back pain, recent treatment UTI 1) CT scan performed- confirms bilateral Stones largest 2.5mm with mild Left Hydronephrosis 2) zofran ordered to [facility] and given prior to dc home 3) IVF given- will keep pushing PO fluids at home 4) offered pain meds- declined. pt to call provider if decides she needs 5) Follow up in office this week 6) cbc and bmp
== END 2022-09-27 22:48 | disposition home or self-care (01) ==
LOC: WPOUT 19:02 → WP 19:03
PROVIDERS: Referring Provider Obstetrics & Gynecology; Visit Provider Obstetrics & Gynecology
DX: O99.891 Other specified diseases and conditions complicating pregnancy (principal); M54.50 Low back pain, unspecified; Z3A.27 27 weeks gestation of pregnancy; O21.9 Vomiting of pregnancy, unspecified; N20.0 Calculus of kidney
CPT/HCPCS: 96365; 96361; 96375; 36415; 59025; 59050; 74176; 80048; 81001; 84112; 85025; 87086; 87088; 99221; J7120; G0378; J2405

== ENCOUNTER 2022-11-21 11:50 | Outpatient (CLI) | payer BC, SELFPAY ==
[2022-11-21] VITALS (21 sets, daily range): BP systolic 104–121; BP diastolic 56–82; PULSE 50–82; TEMP 36.7; O2SAT 95–100; BMI 26.3
[2022-11-21] MEDS: LACTATED RINGERS 500 ML 999 ML IV (12:45)
[2022-11-21 13:22] LABS: Hematocrit 35.1 % (37-47); Hemoglobin 12.2 g/dL (12.0-15.0); Mean Corp Hgb Conc 34.8 g/dL (32-36); Mean Corpuscular Volume 92.1 fL (81-99); Mean Platelet Vol. 10.4 fl (6.2-12.0); Platelet Count 187 K/mm3 (150-450); RBC Distribution Width CV 13.2 % (11.6-14.6); RBC Distribution Width SD 44.1 fl (35.1-43.9); Red Blood Count 3.81 M/mm3 (4.2-5.4)
[2022-11-21 13:25] LABS: Protein, Urine (Random) 17.2 mg/dL (<11.9); Protein:Creat Ratio 220 mg/g CRE (0-200)
[2022-11-21 13:30] LABS: AST(SGOT) 14 U/L (15-37); Alanine Aminotransfer ALT/SGPT 15 U/L (13-56); Creatinine, Serum 0.63 mg/dL (0.55-1.02); EST Glomerular Filtration Rate 121 mL/min (>60); Est Glom Filt Rate - Afr Amer 147 mL/min (>60); Estimated Creatinine Clearance 126.68 ml/min; Uric Acid 4.9 mg/dL (2.6-6.0)
--- NOTE | 2022-11-24 07:25 | OB.TRI.NOTE ---
HPI - General General Date of Admission: 11/21/22 Date of Service: 11/21/22 Chief Complaint: headache HPI Narrative PALMER KIM, is a 27 presented c/o edema and THACKER and some ctxs. Maternal Data Information Final BETSY: 12/27/22 Gestational age: 34 6/7 PFSH PFSH Medical History Heartburn Injury of back Loss of consciousness Non-smoker Home Medications + Iron 1 tab PO/SL DAILY 07/07/22 [History Last Taken 11/21/22] aspirin 81 mg chewable tablet 162 mg PO DAILY miscarriage 07/07/22 [History Last Taken 11/21/22] cephalexin 500 mg capsule 500 mg PO Q6 #28 CAPSULES 07/07/22 [Rx Last Taken Unknown] valacyclovir 500 mg tablet 1,000 mg PO DAILY PRN hx hsv 11/21/22 [History Last Taken 11/20/22] Allergy/AdvReac Type Severity Reaction Status Date / Time No Known Allergies Allergy Verified 11/21/22 13:15 Surgical History History of appendectomy Social History Smoking Status: Never smoker alcohol intake: never substance use type: does not use what type of physical activity do you participate in: walking and weight training frequency: 3-4 times per week duration: 30-45 minutes/day seatbelt use: always do you feel safe at home: Yes History 0 Elective abortions Hx Para Spontaneous abortions Hx # Term Pregnancies Ectopic pregnancies Hx # Pregnancies Multiple births # of living children NST FHR Rate Baby A Baseline: 130 Variability:: Moderate Accelerations:: 15 x 15 Decelerations:: None NST Reactive:: Yes FHR Category:: Category I Uterine Activity:: irreg ctxs Assessment & Plan (1) Edema of lower extremity in third trimester, antepartum: PLAN: 2 para 0 at 34-6/7 weeks with headache, swelling contractions. No evidence of preeclampsia or labor. Follow-up in the office as scheduled or return as needed. NST is reactive.
== END 2022-11-21 14:24 | disposition home or self-care (01) ==
LOC: WPOUT 11:55 → WP 11:56
PROVIDERS: Referring Provider Advanced Practice Midwife; Visit Provider Advanced Practice Midwife
DX: O99.891 Other specified diseases and conditions complicating pregnancy (principal); R60.0 Localized edema; Z3A.34 34 weeks gestation of pregnancy; R51.9 Headache, unspecified; O99.283 Endocrine, nutritional and metabolic diseases complicating pregnancy, third trimester; E75.5 Other lipid storage disorders; Z79.899 Other long term (current) drug therapy
CPT/HCPCS: 96360; 36415; 59025; 59050; 82565; 82570; 84156; 84450; 84460; 84550; 85027

== ENCOUNTER 2022-12-09 08:35 | Inpatient (IN) | payer BC, SELFPAY ==
[2022-12-09] VITALS (21 sets, daily range): BP systolic 98–132; BP diastolic 47–80; PULSE 56–76; RESP 16; TEMP 36.1–36.7; O2SAT 96–99; BMI 26.7
[2022-12-09] MEDS: Lactated Ringers 1,000 ML 999 ML IV (08:40)
--- NOTE | 2022-12-09 09:13 | PCM.HP.OB ---
HPI - General General Date of Admission: 12/09/22 Date of Service: 12/09/22 HPI Narrative PALMER KIM, is a 27 F who presents with LOF. Maternal Data Information Final BETSY: 12/27/22 Gestational age: 37&3 PFSH PFSH Medical History Heartburn History of herpes genitalis Injury of back Loss of consciousness Non-smoker Home Medications + Iron 1 tab PO/SL DAILY 07/07/22 [History Last Taken 12/08/22 08:00 1] aspirin 81 mg chewable tablet 162 mg PO DAILY miscarriage 07/07/22 [History Last Taken 12/08/22 08:00 81 mg] cephalexin 500 mg capsule 500 mg PO Q6 #28 CAPSULES 07/07/22 [Rx Last Taken Unknown] valacyclovir 500 mg tablet 1,000 mg PO DAILY PRN hx hsv 11/21/22 [History Last Taken 12/08/22 08:00 1,000 mg] ondansetron HCl 4 mg tablet mg 12/09/22 [History Last Taken Unknown] Allergy/AdvReac Type Severity Reaction Status Date / Time No Known Allergies Allergy Verified 12/09/22 08:09 Surgical History History of appendectomy Social History Smoking Status: Never smoker alcohol intake: never substance use type: does not use what type of physical activity do you participate in: walking and weight training frequency: 3-4 times per week duration: 30-45 minutes/day seatbelt use: always do you feel safe at home: Yes History 0 Elective abortions Hx Para Spontaneous abortions Hx # Term Pregnancies Ectopic pregnancies Hx # Pregnancies Multiple births # of living children NST FHR Rate Baby A Baseline: 150 Variability:: Moderate Accelerations:: 15 x 15 Decelerations:: Variable Uterine Activity:: Occasional Vital Signs Vital Signs Vital Signs: 12/09/22 08:18 12/09/22 08:18 12/09/22 09:13 Pulse Rate 56 L Blood Pressure 123/77 H 132/80 H BP Systolic 123 132 BP Diastolic 77 80 12/09/22 09:13 Pulse Rate 58 L Blood Pressure BP Systolic BP Diastolic Weight Weight: 165 lb 12.602 oz Body Mass Index (BMI) 26.7 Physical Exam Const alert, oriented x3 and no apparent distress Chest inspection of chest normal Resp normal respiratory effort GI soft to palpation, non-tender and non-distended Inspection: gravid external exam normal Narrative: cvx - 4cm on admission Extremity normal to inspection Labs Labs Labs: Blood Type Pending Antibody Screen Pending Hct 36.4 % (37-47) L Hgb 12.1 g/dL (12.0-15.0) Syphilis Total Ab Pending Assessment & Plan (1) SROM (spontaneous rupture of membranes): COMMENT: @ 37&3 (2) History of herpes genitalis: PLAN: Plan Admit to L&D Patient counseled on R/B/A of MOD. She elects to proceed with primary elective section due to her h/o herpes. Patient has been counseled extensively that trial of labor is a safe option but she declines. Routine care
[2022-12-09 09:19] LABS: Absolute Lymphocyte Count 1.72 X10^3/uL (0.83-4.51); Absolute Neutrophil Count 6.1 X10^3/uL (2.0-7.7); Basophil# 0.03 X10^3/uL; Basophil% 0.3 % (0-1); Eosinophil# 0.07 X10^3/uL; Eosinophils% 0.8 % (0-5); Hematocrit 36.4 % (37-47); Hemoglobin 12.1 g/dL (12.0-15.0); Lymphocyte # 1.72 X10^3/ul (0.83-4.51); Lymphocyte % 19.7 % (19-41); Mean Corp Hgb Conc 33.2 g/dL (32-36); Mean Corpuscular Hgb 31.2 pg (27.0-32.0); Mean Corpuscular Volume 93.8 fL (81-99); Monocyte# 0.73 X10^3/uL; Monocyte% 8.3 % (0-10); NRBC Flagged by Analyzer 0 % (0-5); Neutrophil # 6.11 X10^3/uL (2.7-7.7); Neutrophil % 69.9 % (47-70); Platelet Count 190 K/mm3 (150-450); RBC Distribution Width CV 13.2 % (11.6-14.6); Red Blood Count 3.88 M/mm3 (4.2-5.4); White Blood Count 8.8 K/mm3 (4.4-11.0)
[2022-12-09] MEDS: Sodium Citrate/Citric Acid 30 ML UDC PO (09:20)
[2022-12-09] MEDS: Acetaminophen 500 MG Tablet 1000 MG PO ×3 (09:20→21:21)
[2022-12-09] MEDS: Lactated Ringers 1,000 ML 150 ML IV (09:20)
[2022-12-09] MEDS: Cefazolin 2 GM in 0.9% Normal Saline 100 ML IV (09:35)
[2022-12-09 10:00] LABS: Syphilis Antibodies Non-reactive
--- NOTE | 2022-12-09 10:25 | EX.PCM.OBRPT ---
Maternal Data Information Final BETSY: 12/27/22 Gestational age: 37&3 Details Operative Information Date of Procedure: 12/09/22 Pre-Operative Diagnosis: (1) Patient requests elective primary section (2) History of genital herpes Post-Operative Diagnosis: Same Indications Narrative: The patient was taken to the operating room where spinal anesthesia was placed & found to be adequate. She was prepped and draped in the dorsal supine position with a leftward tilt. A Pfannenstiel skin incision was made approximately 2 cm above the symphysis pubis and carried through to the underlying fascia with the scalpel. The fascia was incised incised in the midline and extended laterally with the Owens scissors. The rectus muscles were in the midline and the peritoneum was entered carefully and bluntly. The peritoneal incision was stretched and the bladder blade was inserted. Vesicouterine peritoneum was tented up, incised & then bladder flap created gently. The uterine incision was made in a low transverse fashion with the scalpel and extended superiorly and inferiorly with blunt dissection. The 's head was brought to the incision in the flexed position and delivered without difficulty. The head was gently guided to allow delivery of the anterior and posterior shoulders. The body then delivered with fundal pressure in the standard fashion. The 3VC cord was clamped and cut in delayed fashion. The infant was handed off to the waiting pediatric associate. The placenta was delivered with fundal massage and gentle traction in the standard fashion. The uterus was exteriorized and cleared of clots and debris. The uterine incision was closed with #1 Vicryl suture in a running locked fashion. Monocryl suture was used in an imbricating fashion. 2 additional figure of 8 sutures placed to obtain excellent hemostasis. The incision was examined and was found to be hemostatic. The uterus was returned to the abdominal cavity. After irrigating Marija was placed over the uterine incision as some areas were denuded (but hemostatic). The rectus muscle was examined and any bleeding was Bovie cauterized. The fascia was closed with PDS suture in a running standard fashion. The subcutaneous tissue was examining and any bleeding was Bovie cauterized. The subcutaneous tissue was reapproximated with interrupted sutures. The skin was closed in a subcuticular fashion by the NURSE CHEMICAL DEPENDENCY while I was present in the labor & delivery unit. The remainder of the procedure was performed by me with assistance. All sponge, lap, and needle counts were correct. The patient was taken to her room for recovery in a stable condition. Classification: KEITH Procedure Type: low transverse sample body builder #1: Fiordaliza Snyder Type of Anesthesia: Spinal Antibiotic Given: Ancef 2 grams IV x1 Drain: Lira to straight drain Estimated Blood Loss: 700ml Procedure Start Time: 09:52 Procedure Stop Time: 10:31 Findings Description of Procedure: Normal maternal uterus and adnexa Presentation: Positive for Vertex Amniotic Membrane Rupture Type: Artificial Amniotic Fluid Description: Clear Placenta Disposition: [facility] Cord Vessel Description: 3 Vessels Cord Entanglement: None Infant A Gender: Male (3230g) (1 minute): 9 (5 minute): 9 Delayed Cord Clamping: Yes Complications Complications: None
[2022-12-09] MEDS: Oxytocin 15 Units/NS 250ml 15 UNITS/250 ML IV.SOLN 83 UNITS IV (10:45)
[2022-12-09] MEDS: Ketorolac 30 MG/ML Syringe IV ×2 (11:54→17:49)
[2022-12-09] MEDS: 0.9% Saline Lock 10 ML Syringe IV ×2 (14:21→15:47)
[2022-12-09] MEDS: Ondansetron 4 MG/2 ML Vial IV (15:47)
[2022-12-09] MEDS: Enoxaparin 40 MG/0.4 ML Syringe SC (21:21)
[2022-12-09] MEDS: Ibuprofen 600 MG Tablet PO (23:40)
[2022-12-09] MEDS: SimETHICONE 80 MG Chewable Tablet PO (23:40)
[2022-12-10] MEDS: Acetaminophen 500 MG Tablet 1000 MG PO ×4 (03:05→21:03)
[2022-12-10 03:14] VITALS: BP 99/55; PULSE 74; RESP 16; TEMP 37.2; O2SAT 99
[2022-12-10 05:19] LABS: Hematocrit 26.2 % (37-47); Hemoglobin 8.7 g/dL (12.0-15.0); Mean Corp Hgb Conc 33.2 g/dL (32-36); Mean Corpuscular Hgb 31.3 pg (27.0-32.0); Mean Corpuscular Volume 94.2 fL (81-99); Mean Platelet Vol. 10.3 fl (6.2-12.0); Platelet Count 161 K/mm3 (150-450); RBC Distribution Width CV 13.1 % (11.6-14.6); RBC Distribution Width SD 45.3 fl (35.1-43.9); Red Blood Count 2.78 M/mm3 (4.2-5.4); White Blood Count 11.2 K/mm3 (4.4-11.0)
[2022-12-10] MEDS: Ibuprofen 600 MG Tablet PO ×3 (05:20→18:06)
--- NOTE | 2022-12-10 08:24 | PN_ITS ---
Subjective Subjective patient seen at bedside, doing well. Patient reports good pain control. lochia mild. some swelling in vaginal area, shoulder pain. Objective Data Objective Data Vital Signs: Vital Signs Temp Pulse Resp BP Pulse Ox O2 Del Method 99.0 F 74 16 99/55 L 99 Room Air 12/10/22 03:14 12/10/22 03:14 12/10/22 03:14 12/10/22 03:14 12/10/22 03:14 12/10/22 03:14 Oxygen Delivery Method Room Air Weight: 75.2 kg Body Mass Index (BMI) 26.7 Intake & Output: Intake and Output for Last 24 Hours 12/08/22 12/09/22 12/10/22 23:59 23:59 23:59 Intake Total 1960 / 1960 Output Total 2500 / 2500 300 / 300 Balance -540 / -540 -300 / -300 Lab / Micro Data 12/10/22 05:11 Labs: Laboratory Results - last 24 hr 12/09/22 08:40: WBC 8.8, RBC 3.88 L, Hgb 12.1, Hct 36.4 L, MCV 93.8, MCH 31.2, MCHC 33.2, RDW Std Deviation 45.0 H, RDW Coeff of Royal 13.2, Plt Count 190, MPV 11.0, Immature Gran % (Auto) 1.000 H, Neut % (Auto) 69.9, Lymph % (Auto) 19.7, [place] % (Auto) 8.3, Eos % (Auto) 0.8, Baso % (Auto) 0.3, Absolute Neuts (auto) 6.1, Absolute Lymphs (auto) 1.72, Nucleated RBC % 0, Syphilis Total Ab Non- reactive, Blood Type A POSITIVE, Antibody Screen NEGATIVE 12/10/22 05:11: WBC 11.2 H, RBC 2.78 L, Hgb 8.7 L, Hct 26.2 L, MCV 94.2, MCH 31.3, MCHC 33.2, RDW Std Deviation 45.3 H, RDW Coeff of Royal 13.1, Plt Count 161, MPV 10.3 Physical Exam Const alert and oriented x3 General Appearance: cooperative HEENT normocephalic Neck General: normal visual inspection GI soft to palpation and non-distended GI Narrative: Fundus firm Extremity normal to inspection and no calf tenderness Skin no rashes or lesions noted Neuro oriented x3 and CN's II-XII intact bilaterally Psych mental status grossly normal Assessment & Plan Assessment/Plan (1) Delivery by section: (2) History of herpes genitalis: PLAN: Plan POD# 1 , Doing well Routine care pain mgmt monitor VS ambulation
[2022-12-10] MEDS: Senna/Docusate Sodium 1 Tablet PO (11:25)
[2022-12-10 14:55] VITALS: BP 98/49; PULSE 77; RESP 16; TEMP 36.9
[2022-12-10 20:12] VITALS: BP 115/56; PULSE 76; RESP 18; TEMP 36.6
[2022-12-10] MEDS: Enoxaparin 40 MG/0.4 ML Syringe SC (21:04)
[2022-12-11] MEDS: Ibuprofen 600 MG Tablet PO ×2 (00:34→06:35)
[2022-12-11 02:26] VITALS: BP 118/76; PULSE 72; RESP 15; TEMP 36.2
[2022-12-11] MEDS: Acetaminophen 500 MG Tablet 1000 MG PO ×2 (03:17→08:37)
[2022-12-11 08:24] VITALS: BP 110/69; PULSE 69; RESP 16; TEMP 36.4; O2SAT 96
--- NOTE | 2022-12-11 09:35 | DCINST_ITS ---
Discharge Instructions Diet Discharge Diet: No restrictions Activity Discharge Activity: May Shower May resume sexual activity in: 6 weeks Weight Bearing Status: Weight bearing as tolerated Dressing / Incision Call your doctor if your incision/area has: Continuous Slow Oozing, Sudden Increased Bleeding, Increased Pain/ Swelling, Increased Redness, Foul Smelling Discharge and Swelling at the incision site Call your doctor if you observe: Fever of 101 or Higher, Coldness, Increased Pain, Change in Color, Inability to urinate, Inability to have a bowel movement, Using more than 1 pad per hour, Shortness of breath, Dizziness, Fainting spells, Chest pain, Increased palpitations (irregular heartbeat), Calf discomfort and Uncontrolled pain Suture Line Care: Avoid Pulling/Pushing and Avoid Pinching/Bending Remove Dressing in: 1 week Cleanse incision/area with: Soap & Water Follow Up Care Please Follow Up With: Ben Gasca MD When: Follow up in 2 and 6 weeks for visits. Test Results: Test results from this visit will be discussed in further detail at your follow- up appointment, if applicable. Discharge Plan Admission Admit Date/Time: 12/09/22 08:35 Primary Reason for Your Visit: section Attending Provider: Ben Gasca Primary Care Provider: Jody Wu Primary Discharge Orders/Prescriptions Prescriptions: New acetaminophen 500 mg Tablet 1,000 mg PO Q6H Qty: 0 0RF ibuprofen 600 mg Tablet 600 mg PO Q6H Qty: 0 0RF Continued + Iron 1 tab PO/SL DAILY valacyclovir 500 mg tablet 1,000 mg PO DAILY PRN (Reason: hx hsv) Patient Comments: TAKE 1 TABLET BY MOUTH TWICE A DAY Discontinued aspirin [Baby Aspirin] 81 mg Tablet,Chewable 162 mg PO DAILY cephalexin 500 mg capsule 500 mg PO Q6 Qty: 28 0RF ondansetron HCl 4 mg tablet Patient Comments: TAKE 1 TABLET BY MOUTH EVERY 8 HOURS NEEDED FOR NAUSEA AND VOMITING Referrals / Follow Up: Jody Wu Primary [Primary Care Provider] - Disposition Disposition (needs filled in before D/C Order can be placed): Home, Self Care
--- NOTE | 2022-12-11 09:35 | PCM.PN.OB ---
Subjective Subjective Pain controlled Objective Data Objective Data Vital Signs: Vital Signs Temp Pulse Resp BP Pulse Ox O2 Del Method 97.6 F L 69 16 110/69 96 Room Air 12/11/22 08:24 12/11/22 08:24 12/11/22 08:24 12/11/22 08:24 12/11/22 08:24 12/11/22 08:24 Oxygen Delivery Method Room Air Weight: 165 lb 12.602 oz Body Mass Index (BMI) 26.7 Intake & Output: Intake and Output for Last 24 Hours 12/09/22 12/10/22 12/11/22 23:59 23:59 23:59 Intake Total 1960 / 1960 Output Total 2500 / 2500 300 / 300 Balance -540 / -540 -300 / -300 Lab / Micro Data 12/10/22 05:11 Physical Exam Const alert, oriented x3 and no apparent distress HEENT normocephalic GI soft to palpation, non-tender and non-distended GI Narrative: fundus firm, mid & below umbilicus Incision - bandage c/d/i Extremity normal to inspection and no calf tenderness Assessment & Plan (1) Delivery by section: COMMENT: POD#2 PLAN: Plan D/c home
--- NOTE | 2022-12-11 11:27 | CASEMGMT ---
Social Work Assessment Labor and Delivery Unit Patient Address:[address] [place] [address] [address]. [place], [place] [address] Phone number: [phone] Date of Referral: 12/09/22 Time of Referral:? [id number] Referred By: Cynthia Calix Date of Intervention: ?12/11/22? Time of Intervention:?1010 Reason for Referral:? anxiety Sw completed chart review and acknowledges social work consult submitted for anxiety. Sw presented to bedside and introduced self to mother of baby (RASHEEDA- Ayah) and father of baby (FOB- Shahriar). Sw completed psychosocial assessment and provided literature, education and support. History obtained from: medical records, MOB and FOB. ?? Household composition: MOB states that currently residing in the family home are parents, their dog Mike and now baby boy, Perfecto. MOB states that the family home is adequate and denies and safety concerns. Patient's parent/guardian status:?RASHEEDA is 26 year old female who is to Shahriar SERRATO. Parents report that they knew each other while in [facility] [employer]. They hae now been together for 5.5 years. [place] baby is the first baby for both parents. While meeting with RASHEEDA privately she denies any safety concerns in her relationship with AMA including domestic violence or intimate partner violence. Medical History: RASHEEDA is 1, para 0 now 1 after delivering Perfecto. RASHEEDA received routine care during her with [facility]. Baby was born on 12/09/22 weighing 7lb 12oz. Baby's apgars were 9 and 9 at one minute and 9 minutes of life respectfully. Educational Status:?MOB states that both parents graduated from high school. MOB has some college experience including an associates degree in special education. RASHEEDA states that she was one class away however she changed career paths and she is thankful that she did because it was right before COVID happened. AMA states that he has some college experience but did not graduate with a degree. No learning comprehension issues. Financial Status: Both parents are gainfully employed outside of the home. FOB works in a factory and RASHEEDA works at a bank. RASHEEDA reporst that she will be able to work remotely 3-4 days out of the week. Infant Supplies:?Parents report they have been able to obtain all necessary baby items including safe sleep space, car seat, clothes, diapers and wipes. MOB states that she initially wanted to breastfeed baby because she thought that is what was best for him. MOB states that she is now ok using formula because it was too stressful to try and breast feed. MOB states that she is going to need to get formula now for baby as that was not initially what her plan was. Childcare/Caregiver(s):? MOB and FOB will be the primary caregivers to baby. MOB states that when parents need help with childcare they have grandparents that will be able to help care for baby. Transportation:?? Both parents have their drivers license and reliable transportation. No transportation barriers at this time. Programs/Agencies Involved: ?Parents deny any linkage to community agencies at this time. Sw provided information on WIC and how to get connected to see if they would be eligible for financial support for formula. ?? Children Services/Legal Issues:??No history of Children Services involvement, no issues or concerns warranting a referral at this time. ? Behavioral Health Issues: ?? Mental Health History:?FOB denies any mental health diagnoses. MOB states that she has never been diagnosed with anything, including anxiety or depression. Sw informed MOB that nursing staff have reported MOB to be anxious following delivery. MOB states that she has been anxious, but feels that since she has made the decision to feed with formula she feels much more calm. MOB completed Millen Depression Screen. MOB score was a 3. Sw provided education and support. ? Substance Use History:?RASHEEDA denies substance use prior to or during . Family History:?RASHEEDA denies substance use history and mental health history for her family and FOB family. Drug Screens: NO urine screens observed in chart review. Family/Social Stressors:? MOB states that the biggest stressor she had following delivery was feeding baby. MOB states that she initially desired breast feeding baby, but it prove to be more difficult than she expected. MOB states that now that she is feeding baby with formula she is less stressed and less anxious. Support Systems: MOB states that she has a lot of family from her side of the family and FOB side of the family who are supportive. Depression/Shaken Baby/Safe Sleeping:?Sw provided education and literature on signs and symptoms of baby blues and depression. Sw educated parents on shaken baby prevention. Sw provided strong education on practicing safe sleep habits and the ABCs of safe sleep (nursing staff informed sw that both parents had been practicing bad safe sleep habits). Parents expressed understanding. Parents expressed understanding. ASSESSMENT:?Sw met with MOB and FOB in room. When appropriate sw asked that FOB step out so sw could assess MOB for signs and symptoms of post anxiety/ depression. FOB stepped out of room willingly. MOB and FOB participated in psychosocial assessment, answered questions and thanked sw for support and education provided. MOB maintained eye contact and her mood appropriately fit the environment. MOB talked openly with sw about her anxiety and her struggles with . MOB observed to be attentive to baby. MOB appreciative and receptive to sw involvement and support. PLAN:? MOB and baby medically ready for discharge today. ?No other services requested or indicated. Gloria Baker RETARDER OPERATOR, RETAIL SHIFT LEADER
== END 2022-12-11 11:46 | disposition home or self-care (01) | DRG 788 ==
LOC: WPOUT 08:50 → WP 08:50
PROVIDERS: Admitting Provider Obstetrics & Gynecology; Referring Provider Obstetrics & Gynecology; Visit Provider Obstetrics & Gynecology
DX: O26.893 Other specified pregnancy related conditions, third trimester (principal); Z37.0 Single live birth; Z3A.37 37 weeks gestation of pregnancy; Z86.19 Personal history of other infectious and parasitic diseases; Z79.82 Long term (current) use of aspirin
CPT/HCPCS: 59050; 85025; 85027; 86780; 86850; 86900; 86901; 99221; J7120; A4216; G0378; J2405

== ENCOUNTER 2024-08-21 14:07 | Outpatient (CLI) | payer OTHER, SELFPAY ==
[2024-08-21 14:29] VITALS: BP 104/57; PULSE 69; RESP 15; TEMP 37; O2SAT 96
[2024-08-21 14:32] VITALS: BMI 24.3
[2024-08-21 15:45] LABS: Mucous, Urine 0 SEEN /hpf (<or=2+); Red Blood Cells-Urine 0 SEEN /hpf (0-5)
[2024-08-21 16:14] LABS: Color, Urine Yellow (Yellow); Glucose, Dipstick Normal (Normal); Ketone-Dipstick Negative (Negative); Leukocyte Esterase-Dipstick 25 /ul (Negative); Nitrite-Dipstick Negative (Negative); Occult Blood-Urine Negative /ul (Negative); Protein-Dipstick 15 mg/dl (Negative); Urine Bilirubin Dipstick Negative (Negative); Urine Clarity Sl. Cloudy (Clear); Urine Urobilinogen Normal (Normal)
[2024-08-21 16:22] LABS: Amorphous Sediment 1+; Bacteria 1+ /hpf (None Seen); Squamous Epithelial Cells - UA 0-5 SEEN /hpf (5-10); White Blood Cells 0-5 SEEN /hpf (0-5)
--- NOTE | 2024-08-21 17:07 | NURSING ---
urine results given to dr hernandez- culture ordered
--- NOTE | 2024-08-23 10:44 | OB.TRI.NOTE ---
HPI - General General Date of Admission: 08/21/24 Date of Service: 08/21/24 Chief Complaint: vaginal bleeding HPI Narrative PALMER KIM, is a 28 F who presents 3 para 1 presented at 36/7 weeks for vaginal bleeding when she wiped. She was sent to labor and delivery for evaluation. Maternal Data Information Final BETSY: 10/24/24 Gestational age: 30 6/7 PFSH PFSH Medical History Genital herpes affecting History of herpes genitalis Injury of back Loss of consciousness Heartburn Non-smoker Home Medications ?Medication ?Instructions ?Recorded ?Last Taken ?Type + Iron 1 tab PO/SL DAILY 07/07/22 08/21/24 10:00 History aspirin 81 mg chewable tablet 1 tab PO DAILY 08/21/24 08/21/24 10:00 History (Aspirin Childrens) Allergy/AdvReac Type Severity Reaction Status Date / Time bee venom protein (honey Allergy Intermediate Swelling Verified 08/21/24 14:33 bee) (bees) Surgical History (Updated 12/19/22 @ 00:01 by Background Arianna) Delivery by section History of appendectomy Social History Smoking Status: Never smoker alcohol intake: never substance use type: does not use what type of physical activity do you participate in: walking and weight training frequency: 3-4 times per week duration: 30-45 minutes/day seatbelt use: always do you feel safe at home: Yes History 0 Elective abortions Hx Para 0 Spontaneous abortions Hx # Term Pregnancies Ectopic pregnancies Hx # Pregnancies Multiple births # of living children NST FHR Rate Baby A Baseline: 130 Variability:: Moderate Accelerations:: 15 x 15 Decelerations:: None NST Reactive:: Yes Uterine Activity:: rare ctxs Assessment & Plan (1) 30 weeks gestation of : (2) Vaginal bleeding during , antepartum: (3) High risk multigravida in third trimester: PLAN: Plan a+ no further bleeding no evidence of PTL d/c home and f/u in office as scheduled or prn kick counts
== END 2024-08-21 15:35 | disposition home or self-care (01) ==
LOC: WPOUT 14:27 → WP 14:28
PROVIDERS: Visit Provider Obstetrics & Gynecology
DX: O46.93 Antepartum hemorrhage, unspecified, third trimester (principal); Z3A.30 30 weeks gestation of pregnancy
CPT/HCPCS: 59025; 81001; 87086; 99221; G0378

== ENCOUNTER 2024-09-24 11:50 | Outpatient (CLI) | payer OTHER, SELFPAY ==
[2024-09-24 12:31] VITALS: PULSE 70; O2SAT 97
[2024-09-24 12:34] LABS: Color, Urine Yellow (Yellow); Glucose, Dipstick Normal (Normal); Ketone-Dipstick Negative (Negative); Leukocyte Esterase-Dipstick 100 /ul (Negative); Nitrite-Dipstick Negative (Negative); Occult Blood-Urine 10 /ul (Negative); Protein-Dipstick Negative (Negative); Specific Gravity, Urine 1.005 (1.002-1.030); Urine Bilirubin Dipstick Negative (Negative); Urine Clarity Sl. Cloudy (Clear); Urine Urobilinogen Normal (Normal)
[2024-09-24 12:36] VITALS: PULSE 75; O2SAT 96
[2024-09-24 12:37] VITALS: BMI 25.0
[2024-09-24 12:47] LABS: ROM Internal Control Test YES-OK TO RESULT pt. (Internal QC); ROM Patient Test Negative (Negative)
[2024-09-24 12:49] LABS: Record Kit Lot#, ROM+ K3358
[2024-09-24 13:39] VITALS: BP 107/58; PULSE 72
--- NOTE | 2024-09-27 19:32 | OB.TRI.NOTE ---
HPI - General General Date of Service: 09/24/24 HPI Narrative PALMER KIM, is a 28 F who presents at 35w5d with complaint of abdominal pain and possible uterine contractions. PFSH PFSH Medical History Genital herpes affecting History of herpes genitalis Injury of back Loss of consciousness Heartburn Non-smoker Home Medications ?Medication ?Instructions ?Recorded ?Last Taken ?Type + Iron 1 tab PO/SL DAILY 07/07/22 08/21/24 10:00 History aspirin 81 mg chewable tablet 1 tab PO DAILY 08/21/24 09/24/24 History (Aspirin Childrens) valacyclovir 500 mg tablet 500 mg PO Q8H hx herpes 09/24/24 09/24/24 History Allergy/AdvReac Type Severity Reaction Status Date / Time bee venom protein (honey Allergy Intermediate Swelling Verified 09/24/24 12:40 bee) (bees) Surgical History (Updated 12/19/22 @ 00:01 by Ross Keller) Delivery by section History of appendectomy Social History Smoking Status: Never smoker alcohol intake: never substance use type: does not use what type of physical activity do you participate in: walking and weight training frequency: 3-4 times per week duration: 30-45 minutes/day seatbelt use: always do you feel safe at home: Yes History 0 Elective abortions Hx Para 0 Spontaneous abortions Hx # Term Pregnancies Ectopic pregnancies Hx # Pregnancies Multiple births # of living children NST FHR Rate Baby A Baseline: 135 Variability:: Moderate Accelerations:: 15 x 15 Decelerations:: None NST Reactive:: Yes Uterine Activity:: irregular Assessment & Plan (1) High risk multigravida in third trimester: (2) 35 weeks gestation of : (3) Abdominal pain: PLAN: Plan 1) Reactive NST 2) No signs of labor 3) D/C home
== END 2024-09-24 14:46 | disposition home or self-care (01) ==
LOC: WPOUT 11:54 → WP 11:54
PROVIDERS: Referring Provider Advanced Practice Midwife; Visit Provider Advanced Practice Midwife
DX: O99.891 Other specified diseases and conditions complicating pregnancy (principal); R10.9 Unspecified abdominal pain; Z3A.35 35 weeks gestation of pregnancy
CPT/HCPCS: 59025; 59050; 81002; 84112; 87086; 99221; G0378

== ENCOUNTER 2024-10-07 19:47 | Inpatient (IN) | payer OTHER, SELFPAY ==
[2024-10-07] VITALS (16 sets, daily range): BP systolic 101–123; BP diastolic 58–83; PULSE 48–73; RESP 12–18; TEMP 35.9–37; O2SAT 95–98; BMI 25.0; BMI 25.1
[2024-10-07] MEDS: Lactated Ringers 1,000 ML 999 ML IV (20:00)
--- NOTE | 2024-10-07 20:00 | PCM.HP.OB ---
HPI - General General Date of Admission: 10/07/24 Chief Complaint: contractions HPI Narrative PALMER KIM, is a 28 F who presents increasing contractions and pain. Cervical change from 2.5cm to 4 cm. Previous desires repeat with tubal. Maternal Data Information Final BETSY: 10/24/24 Gestational age: 37+4 PFSH PFSH Medical History Genital herpes affecting History of herpes genitalis Injury of back Loss of consciousness Heartburn Non-smoker Home Medications ?Medication ?Instructions ?Recorded ?Last Taken ?Type + Iron 1 tab PO/SL DAILY 07/07/22 10/06/24 20:00 History 1 aspirin 81 mg chewable tablet 1 tab PO DAILY 08/21/24 10/06/24 20:00 History (Aspirin Childrens) 1 TAB valacyclovir 500 mg tablet 500 mg PO Q8H hx herpes 09/24/24 10/06/24 History Allergy/AdvReac Type Severity Reaction Status Date / Time bee venom protein (honey Allergy Intermediate Swelling Verified 10/07/24 19:53 bee) (bees) Surgical History Delivery by section History of appendectomy Social History Smoking Status: Never smoker alcohol intake: never substance use type: does not use what type of physical activity do you participate in: walking and weight training frequency: 3-4 times per week duration: 30-45 minutes/day seatbelt use: always do you feel safe at home: Yes History 2 Elective abortions Hx Para 1 Spontaneous abortions Hx # Term Pregnancies Ectopic pregnancies Hx # Pregnancies Multiple births # of living children NST FHR Rate Baby A Baseline: 140 Variability:: Moderate Accelerations:: 15 x 15 Decelerations:: None FHR Category:: Category I ROS Constitutional Constitutional: Denies fatigue, fever(s) or malaise Eyes Eyes: Denies change in vision ENT HEENT: Denies dizziness or headache(s) Cardiovascular Cardiovascular: Denies chest pain, dyspnea or lightheadedness Respiratory/Chest Respiratory/Chest: Denies cough or dyspnea Gastrointestinal Gastrointestinal: Denies change in bowel habits Genitourinary Genitourinary: Denies burning urination or genital lesions Integumentary Integumentary: Denies rash Neurologic Neurologic: Denies confusion, dizziness, headache(s), numbness or weakness Vital Signs Vital Signs Vital Signs: 10/07/24 17:27 10/07/24 17:27 10/07/24 17:28 Temperature 98.4 F Temperature Source Pulse Rate 67 Respiratory Rate Blood Pressure 117/59 L BP Systolic 117 BP Diastolic 59 Pulse Ox 10/07/24 17:29 10/07/24 17:29 10/07/24 17:29 Temperature Temperature Source Temporal Pulse Rate 73 Respiratory Rate Blood Pressure BP Systolic BP Diastolic Pulse Ox 97 10/07/24 17:29 10/07/24 17:29 Temperature 98.5 F Temperature Source Pulse Rate Respiratory Rate 16 Blood Pressure BP Systolic BP Diastolic Pulse Ox Weight Weight: 70.477 kg Body Mass Index (BMI) 25.0 Physical Exam Const alert and no apparent distress General Appearance: cooperative HEENT normocephalic Resp normal respiratory effort Cardio regular rate GI soft to palpation GI Narrative: gravid, nontender, appropriate for gestational age Extremity no calf tenderness General Extremity: edema Skin no wounds Rashes: No rashes noted Psych activity/motor behavior normal Labs Labs Labs: Blood Type A POSITIVE Antibody Screen NEGATIVE Hct 26.2 % (37-47) L Hgb 8.7 g/dL (12.0-15.0) L Syphilis Total Ab Non-reactive Assessment & Plan (1) Previous section: (2) 37 weeks gestation of : PLAN: Plan Repeat with tubal
[2024-10-07 20:16] LABS: Absolute Lymphocyte Count 1.75 X10^3/uL (0.83-4.51); Absolute Neutrophil Count 7.8 X10^3/uL (2.0-7.7); Basophil# 0.03 X10^3/uL; Basophil% 0.3 % (0-1); Eosinophil# 0.04 X10^3/uL; Eosinophils% 0.4 % (0-5); Hematocrit 32.6 % (37-47); Hemoglobin 11.1 g/dL (12.0-15.0); Lymphocyte # 1.75 X10^3/ul (0.83-4.51); Lymphocyte % 16.8 % (19-41); Mean Corpuscular Hgb 30.6 pg (27.0-32.0); Mean Corpuscular Volume 89.8 fL (81-99); Monocyte# 0.73 X10^3/uL; NRBC Flagged by Analyzer 0 % (0-5); Neutrophil # 7.78 X10^3/uL (2.7-7.7); Neutrophil % 74.4 % (47-70); Platelet Count 215 K/mm3 (150-450); RBC Distribution Width CV 13.5 % (11.6-14.6); RBC Distribution Width SD 43.8 fl (35.1-43.9); Red Blood Count 3.63 M/mm3 (4.2-5.4); White Blood Count 10.4 K/mm3 (4.4-11.0)
[2024-10-07] MEDS: Sodium Citrate/Citric Acid 30 ML UDC PO (20:36)
[2024-10-07] MEDS: Acetaminophen 500 MG Tablet 1000 MG PO (20:36)
[2024-10-07] MEDS: Cefazolin 2 GM in 0.9% Normal Saline (100mL Bag) 100 ML IV (20:42)
[2024-10-07 20:52] LABS: Syphilis Antibodies Nonreactive (Nonreactive)
--- NOTE | 2024-10-07 21:11 | FALS_PTH ---
PATIENT: PALMER KIM LOC: [facility] U#:[id number] AGE/SX: 28/F ROOM: WP004 RE10/07/[address]: Dr. Gabriella Willard MD : 1995 BED: 1 DIS: 10/08/2024 SPEC #: [id number] RECD: 10/07/24 22:40 STATUS: TOM REMatilda #: [id number] JOSEPHINE: 10/07/24 21:[address]: Gabriella Willard DEPT: SURGICAL PATHOLOGY RECD BY: Beronica Quinteros ENTERED: 10/10/24 07:34 SP TYPE: FALL TUBES OTHR DR: No Primary Care Phys Tissues: Fallopian tube Procedures: Surgery Specimen Level II HEADER OPERATION: Repeat section PRE-OP DIAGNOSIS: Routine TISSUE SUBMITTED: A- Bilateal fallopian tubes *stitch on right* MICROSCOPIC DIAGNOSIS A. Bilateral fallopian tubes, bilateral salpingectomy: * Benign fallopian tubes with complete cross sections obtained MICROSCOPIC DESCRIPTION Slides are reviewed. GROSS DESCRIPTION A. Received in formalin in a container labeled with the patient's name, date of , and stitch in R are bilateral fimbriated fallopian tube segments, the right received with a stitch. The right is 6.5 cm in length by 1.3 cm in diameter, and the left is 5.5 cm in length by 0.9 cm in diameter. Each display purple-ramirez, smooth, and glistening serosa with unremarkable fimbriated ends. Sectioning of each reveals a pinpoint lumen. Asphalt Distributor Operator sections:A1. Right tubeA2. Left tube [facility] 10-10-2024 CPT:98248q6
--- NOTE | 2024-10-07 21:41 | EX.PCM.OBRPT ---
Assessment & Plan (1) 37 weeks gestation of : (2) Previous section: (3) Normal labor: (4) Request for sterilization: Maternal Data Information Final BETSY: 10/24/24 Gestational age: 37+4 Operative Report (OB) Details Procedure Type: low transverse Date of Procedure: 10/07/24 Procedure Start Time: 21:07 Procedure Stop Time: 21:41 Time of Delivery: 21:11 Pre-Operative Diagnosis: Repeat Elective (with bilateral salpingectomy) Post-Operative Diagnosis: Same as Pre-operative diagnosis Classification: Scheduled Type of Anesthesia: Spinal Antibiotic Given: Ancef 2 grams IV x1 Drain: Lira to straight drain Estimated Blood Loss: 800 cc Findings Description of surgery: Patient presented with frequent contractions and made cervical change from 2.5 cm to 4 cm. She was a previous and desires repeat. Desires permanent sterilization. Patient taken to the OR where spinal and Lira were placed. She was prepped and draped in the normal sterile fashion. A Pfannenstiel incision was made and carried down to the underlying fascia. The fascia was incised in the midline and extended laterally. The fascia was dissected from the muscle. The muscles divided in the midline. The peritoneum was entered bluntly and extended manually. A bladder blade was placed. A bladder flap was created. A low transverse incision was made and extended bluntly. The head was elevated to the incision. The shoulders delivered easily. There was a cord around the neck x 1. The cried upon delivery. The cord was cut and clamped. The placenta was delivered with calvin traction. The uterus was exteriorized and cleared of all clot and debris. The incision was repaired with 1-0 Vicryl x 2. A LigaSure was used to transect the mesosalpinx along the length of the fallopian tube from the fimbria to the cornua. This was done bilaterally. The uterus was returned the abdomen. The gutters were cleared of all clots. The peritoneum was closed with 2-0 Monocryl. The fascia was closed with 1-0 Vicryl. The subcutaneous tissue was reapproximated with 2-0 Monocryl The skin was closed with 4-0. I performed the major parts of the procedure with the RFNA assisting with retraction and closing the skin. The sponge lap and needle count was correct x 2 Surgical findings: Thin lower uterine segment Presentation: Vertex and MARIAN Amniotic Membrane Rupture Type: Artificial Amniotic Fluid Description: Clear Placental Delivery Description: Spontaneous Placenta Disposition: [facility] Specimen collected: No Cord Vessel Description: 3 Vessels Cord Entanglement: Around neck x 1, loose Nuchal Cord Compression: Without compression Infant A gender: Female (1 minute): 8 (5 minute): 8 Delayed Cord Clamping: Yes Clinical Immunologist hurl shaker: Yes Supervisor Capacitor Processing: Vanessa Lindsey Tasks completed by surgical first assistant: Opening & closing and Retracting Additional dental laboratory assistant?: No Complications Complications: No
[2024-10-07] MEDS: Oxytocin 15 Units/NS 250ml 15 UNITS/250 ML IV.SOLN 83 UNITS IV (22:10)
[2024-10-07] MEDS: Ketorolac 30 MG/ML Syringe IV (22:43)
[2024-10-07] MEDS: Lactated Ringers 1,000 ML 100 ML IV (23:01)
[2024-10-08] VITALS (16 sets, daily range): BP systolic 102–128; BP diastolic 54–83; PULSE 52–73; RESP 16; TEMP 36.1–37.1; O2SAT 96–100
[2024-10-08] MEDS: 0.9% Saline Lock 10 ML Syringe IV ×5 (01:33→16:07)
[2024-10-08] MEDS: Ondansetron 4 MG/2 ML Vial IV (01:33)
[2024-10-08] MEDS: Acetaminophen 500 MG Tablet 1000 MG PO ×4 (03:37→22:11)
[2024-10-08] MEDS: Ketorolac 30 MG/ML Syringe IV ×3 (05:10→16:07)
[2024-10-08 05:35] LABS: Hematocrit 30.4 % (37-47); Hemoglobin 10.4 g/dL (12.0-15.0); Mean Corp Hgb Conc 34.2 g/dL (32-36); Mean Corpuscular Hgb 30.8 pg (27.0-32.0); Mean Corpuscular Volume 89.9 fL (81-99); Mean Platelet Vol. 10.1 fl (6.2-12.0); Platelet Count 180 K/mm3 (150-450); RBC Distribution Width CV 13.6 % (11.6-14.6); RBC Distribution Width SD 44.4 fl (35.1-43.9); Red Blood Count 3.38 M/mm3 (4.2-5.4); White Blood Count 10.7 K/mm3 (4.4-11.0)
[2024-10-08] MEDS: proCHLORPERazine 10 MG/2 ML Vial IV (07:58)
--- NOTE | 2024-10-08 08:22 | PN.OBGYN_ITS ---
Subjective Subjective Doing well. Ambulating and voiding without difficulty. Mild lochia. Bottle feeding. Objective Data Objective Data Vital Signs: Vital Signs Temp Pulse Resp BP Pulse Ox O2 Del Method 98 F 60 16 114/74 100 Room Air 10/08/24 05:17 10/08/24 05:17 10/08/24 06:08 10/08/24 05:17 10/08/24 06:08 10/08/24 06:08 Oxygen Delivery Method Room Air Weight: 70.6 kg Body Mass Index (BMI) 25.1 Intake & Output: Intake and Output for Last 24 Hours 10/06/24 10/07/24 10/08/24 23:59 23:59 23:59 Intake Total 1110 / 1110 1648.33 / 1648.33 Output Total 800 / 800 800 / 800 Balance 310 / 310 848.33 / 848.33 Lab / Micro Data 10/08/24 05:15 Labs: Laboratory Results - last 24 hr 10/07/24 20:00: WBC 10.4, RBC 3.63 L, Hgb 11.1 L, Hct 32.6 L, MCV 89.8, MCH 30.6, MCHC 34.0, RDW Std Deviation 43.8, RDW Coeff of Royal 13.5, Plt Count 215, MPV 10.0, Immature Gran % (Auto) 1.100 H, Neut % (Auto) 74.4 H, Lymph % (Auto) 16.8 L, [place] % (Auto) 7.0, Eos % (Auto) 0.4, Baso % (Auto) 0.3, Absolute Neuts (auto) 7.8 H, Absolute Lymphs (auto) 1.75, Nucleated RBC % 0, Syphilis Total Ab Nonreactive, Blood Type A POSITIVE, Antibody Screen NEGATIVE 10/08/24 05:15: WBC 10.7, RBC 3.38 L, Hgb 10.4 L, Hct 30.4 L, MCV 89.9, MCH 30.8, MCHC 34.2, RDW Std Deviation 44.4 H, RDW Coeff of Royal 13.6, Plt Count 180, MPV 10.1 ROS Constitutional Constitutional: Denies headache(s) Cardiovascular Cardiovascular: Denies chest pain or dyspnea Gastrointestinal Gastrointestinal: Denies nausea or vomiting Genitourinary Genitourinary: Denies dysuria Physical Exam Const alert, oriented x3 and no apparent distress General Appearance: cooperative and comfortable Eyes PERRL and EOMs intact bilaterally Resp normal respiratory effort GI soft to palpation and non-tender GI Narrative: soft, moderate distention, fundus firm, appropriately tender. Abdominal bandage clean dry and intact Uterus Palpation: uterus fundus firm ( below umbilicus) Extremity normal to inspection and full ROM Neuro oriented x3 and CN's II-XII intact bilaterally Psych mental status grossly normal Assessment & Plan (1) Request for sterilization: (2) S/P : PLAN: Plan Desires discharge at 24 hours
[2024-10-08] MEDS: Senna/Docusate Sodium 1 Tablet PO (10:00)
--- NOTE | 2024-10-08 10:48 | PCM.DC.SUM ---
Providers Date of Admission: 10/07/24 Date of Discharge: 10/08/24 Primary Care Physician: No Primary Care Phys Reason For Visit: SCHEDULED SECTION Diagnosis Discharge Diagnosis (1) Request for sterilization: Status: Acute Code(s): Z30.2 - Encounter for sterilization (2) S/P : Status: Acute Code(s): Z98.891 - History of uterine scar from previous surgery Plan Desires discharge at 24 hours Medications at Discharge Home Medications + Iron 1 tab PO/SL DAILY 07/07/22 valacyclovir 500 mg tablet 500 mg PO Q8H hx herpes 09/24/24 Hospital Course Operations section (with sterilization) Procedures None Summary of Care Provided Minutes Spent on Discharge: 20 Hospital Course: Presented in labor with a hx of previous . Repeat with tubal. No complications Physical Exam Const alert General Appearance: cooperative GI GI Narrative: soft, moderate distention, fundus firm, appropriately tender. Abdominal bandage clean dry and intact Weight / BMI Weight Weight: 70.6 kg Body Mass Index (BMI) 25.1 ABG / Lab / Microbiology Data 10/08/24 05:15 Laboratory: Laboratory Results - last 24 hr 10/07/24 20:00: WBC 10.4, RBC 3.63 L, Hgb 11.1 L, Hct 32.6 L, MCV 89.8, MCH 30.6, MCHC 34.0, RDW Std Deviation 43.8, RDW Coeff of [place] 13.5, Plt Count 215, MPV 10.0, Immature Gran % (Auto) 1.100 H, Neut % (Auto) 74.4 H, Lymph % (Auto) 16.8 L, [place] % (Auto) 7.0, Eos % (Auto) 0.4, Baso % (Auto) 0.3, Absolute Neuts (auto) 7.8 H, Absolute Lymphs (auto) 1.75, Nucleated RBC % 0, Syphilis Total Ab Nonreactive, Blood Type A POSITIVE, Antibody Screen NEGATIVE 10/08/24 05:15: WBC 10.7, RBC 3.38 L, Hgb 10.4 L, Hct 30.4 L, MCV 89.9, MCH 30.8, MCHC 34.2, RDW Std Deviation 44.4 H, RDW Coeff of [place] 13.6, Plt Count 180, MPV 10.1 D/C Instructions Discharge Diet: No restrictions May resume sexual activity in: 4-6 weeks Lifting Restrictions: 20 pounds Additional Activity Instructions: Nothing in the vagina for 4-6 weeks. You may return to work/school in 6 weeks. Call your doctor if your incision/area has: Continuous Slow Oozing, Sudden Increased Bleeding, Increased Pain/ Swelling, Increased Redness and Foul Smelling Discharge Call your doctor if you observe: Fever of 101 or Higher and Using more than 1 pad per hour (for 2 hours) Suture Line Care: Avoid Pulling/Pushing and Avoid Pinching/Bending Cleanse incision/area with: Keep Dressing Clean & Dry DC O2, CPAP, BIPAP Needs Home O2 Discharge instructions: No Please Follow Up With: Chloe Courtney MD When: Call to make an appointment for an incision check in 1-2 [phone]. You will need a post check in 6 weeks. Meaningful Use Info Meaningful Use Meaningful Use Diagnoses (Choose all that apply): None applicable Ischemic Stroke Statin Dosing Therapy Reference: STATIN DOSE THERAPY REFERENCE: * Patients > 75 years receive moderate or high dose statin therapy. * Patients 75 years or YOUNGER should receive HIGH intensity statin dose unless contraindicated. You will be required to document reason for non-treatment if statin daily dose does not meet guidelines. HIGH DOSE STATIN THERAPY DAILY Atorvastatin > than or = to 40 mg Rosuvastatin > than or = to 20 mg Amlodipine + Atorvastatin > than or = to 2.5/40 mg Ezetimibe + Simvastatin 10/80 mg Simvastatin 80mg Discharge Plan Admission Admit Date/Time: 10/07/24 19:47 Primary Reason for Your Visit: labor Attending Provider: Gabriella Willard Primary Care Provider: Care Physician,Jody Primary Discharge Orders/Prescriptions Prescriptions: Continued + Iron 1 tab PO/SL DAILY valacyclovir 500 mg tablet 500 mg PO Q8H Patient Comments: TAKE 1 TABLET BY MOUTH Three times a day Discontinued aspirin [Aspirin Childrens] 81 mg tablet,chewable 1 tab PO DAILY Referrals / Follow Up: Care PhysicianJody Primary [Primary Care Provider] - Disposition Disposition (needs filled in before D/C Order can be placed): Home, Self Care
[2024-10-08] MEDS: Ibuprofen 600 MG Tablet PO (22:11)
== END 2024-10-08 22:22 | disposition home or self-care (01) | DRG 785 ==
LOC: WPOUT 19:59 → WP 19:59
PROVIDERS: Admitting Provider Obstetrics & Gynecology; Referring Provider Obstetrics & Gynecology; Visit Provider Obstetrics & Gynecology
DX: O34.219 Maternal care for unspecified type scar from previous cesarean delivery (principal); O69.81X0 Labor and delivery complicated by cord around neck, without compression, not applicable or unspecified; Z30.2 Encounter for sterilization; Z37.0 Single live birth; Z79.82 Long term (current) use of aspirin; Z3A.37 37 weeks gestation of pregnancy
CPT/HCPCS: 59025; 59050; 85025; 85027; 86780; 86850; 86900; 86901; 88302; 99221; A4216; G0378; J2405

== ENCOUNTER 2025-01-31 13:59 | Emergency (ER) | payer BC, SELFPAY ==
[2025-01-31 14:00] VITALS: BP 133/81; PULSE 72; RESP 18; TEMP 37; O2SAT 98; BMI 21.9
[2025-01-31 14:51] LABS: Hematocrit 36.5 % (37-47); Hemoglobin 12.7 g/dL (12.0-15.0); Immature Granulocytes Count 0.010 X10^3/uL (0.0-0.0); Mean Corp Hgb Conc 34.8 g/dL (32-36); Mean Corpuscular Volume 86.5 fL (81-99); Mean Platelet Vol. 10.4 fl (6.2-12.0); NRBC Flagged by Analyzer 0 % (0-5); Platelet Count 309 K/mm3 (150-450); RBC Distribution Width CV 12.4 % (11.6-14.6); RBC Distribution Width SD 38.6 fl (35.1-43.9); Red Blood Count 4.22 M/mm3 (4.2-5.4); White Blood Count 6.2 K/mm3 (4.4-11.0)
[2025-01-31 15:05] LABS: Internal QC Validated? YES +Cl - CLEAR BKGD; Pregnancy, Serum, hCG Quali. NEGATIVE Negative
[2025-01-31 15:06] LABS: Record Kit Lot#, Serum Preg. 0000964736
[2025-01-31 15:18] LABS: AST(SGOT) 20 U/L (<=31); Alanine Aminotransfer ALT/SGPT 15 U/L (<=34); Albumin, Serum 4.3 g/dL (3.5-5.0); Alkaline Phosphatase 35 U/L (35-104); Anion Gap 11 (5-15); BUN 13 mg/dL (4-19); BUN/Creat Ratio 15.9 RATIO (10-20); Calcium,Total 9.4 mg/dL (7.6-11.0); Carbon Dioxide 24.1 mmol/L (21.0-32.0); Chloride 105 mmol/L (98-108); Estimated Creatinine Clearance 96.80 ml/min (50-250); Globulin 2.4 g/dL (2.2-4.2); Glucose 105 mg/dL (70-99); Lipase 39 U/L (13-75); Potassium 3.9 mmol/L (3.3-5.1)
--- NOTE | 2025-01-31 15:38 | US_ITS ---
PROCEDURE: US GALLBLADDER 01/31/2025 REASON FOR EXAM: RUQ PAIN TECHNIQUE: Procedure Code: USGB Modality: US Procedure: GALLBLADDER COMPARISON: Abdominal CT 09/27/2022. FINDINGS: Liver: Grossly normal in size with homogeneous parenchymal echotexture. Gallbladder: Contracted consistent with a nonfasting state, limiting evaluation. No shadowing gallstones, pericholecystic fluid, or tenderness to palpation was elicited on this exam. Common bile duct: Normal measuring up to 0.4 cm in diameter. Pancreas: Visualized portions appear sonographically normal. Other: There are a few small subcentimeter echogenic right renal calculi. No hydronephrosis is seen on the right or perinephric fluid collection. US/Gallbladder IMPRESSION: 1. Sonographically normal liver. 2. Contracted gallbladder. No findings to suggest cholecystitis. 3. No intra or extrahepatic biliary ductal dilatation. 4. Few small subcentimeter nonobstructive right renal stones. No hydronephrosi s. Reading Location: [facility]
[2025-01-31] MEDS: 0.9% Normal Saline (1000mL) 1,000 ML 999 ML IV (15:45)
--- NOTE | 2025-01-31 16:04 | ED.VIS.GI ---
HPI HPI - GI History of Present Illness Chief Complaint: Abd Pain Informant: patient Narrative Narrative: Patient is a 29-year-old female history of kidney stones is presenting with 4 days of worsening right upper quadrant abdominal pain. She notes that she is 4 months from a and a tubal ligation. 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 She notes pain for started on afternoon (4 days ago) after eating lunch. She states she had [employer] for lunch. She has the pain is constant and sometimes will go away relented of this has not really noticed that it is more of a dull pain. Generally after eating becomes sharper. She notes it tends to be worse in the evening after dinner. She has had nausea but no vomiting. That she has had some mild pain in her right shoulder blade area. She notes that over the last week especially after eating she has been having bowel movements which is abnormal for her and her stool has been orange/jass colored. States her stool has been more softer when she denies diarrhea. Denies any fever. I did take ibuprofen this morning with no help with her symptoms. Patient is also over the past couple weeks has been having a frontal headache. 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 Denies any history of any abdominal surgeries. No urinary symptoms. No other complaints or concerns at this time. PFSH PFSH Medical History Genital herpes affecting History of herpes genitalis Injury of back Loss of consciousness Heartburn Non-smoker Home Medications ?Medication ?Instructions ?Recorded ?Last Taken ?Type + Iron 1 tab PO/SL DAILY 07/07/22 10/06/24 20:00 History 1 valacyclovir 500 mg tablet 500 mg PO Q8H hx herpes 09/24/24 10/06/24 History pantoprazole 20 mg tablet,delayed 20 mg PO DAILY #14 tabs 01/31/25 Unknown Rx release polyethylene glycol 3350 17 17 g PO DAILY PRN constipation 01/31/25 Unknown Rx gram/dose oral powder (Miralax) #119 grams Allergy/AdvReac Type Severity Reaction Status Date / Time bee venom protein (honey Allergy Intermediate Swelling Verified 01/31/25 14:04 bee) (bees) Surgical History Delivery by section History of appendectomy Social History Smoking Status: Never smoker alcohol intake: never substance use type: does not use what type of physical activity do you participate in: walking and weight training frequency: 3-4 times per week duration: 30-45 minutes/day seatbelt use: always do you feel safe at home: Yes ROS ROS ED Constitutional Constitutional ED: Denies chills or fever(s) Cardiovascular Cardiovascular: Denies chest pain Respiratory/Chest Respiratory/Chest: Denies cough Gastrointestinal Gastrointestinal: Reports abdominal pain and nausea; Denies constipation, diarrhea, melena or vomiting Genitourinary Genitourinary ED: Denies dysuria, hematuria or urinary frequency Musculoskeletal Musculoskeletal: Reports back pain; Denies arthralgias or myalgias Integumentary Denies rash Neurologic Neurologic: Reports headache(s); Denies weakness Hematologic/Lymphatic Hematologic/Lymphatic: Denies easy bleeding or easy bruising EXAM Physical Exam Const Vital Signs: 01/31/25 14:00 01/31/25 16:05 01/31/25 18:00 Temperature 98.6 F Temperature Source Oral Pulse Rate 72 87 60 Respiratory Rate 18 16 17 Blood Pressure 133/81 H 120/74 126/74 H Blood Pressure Mean 98 89 91 Pulse Ox 98 97 95 Oxygen Delivery Method Room Air Room Air Room Air 01/31/25 20:00 01/31/25 20:51 Temperature 98.6 F Temperature Source Pulse Rate 69 169 H Respiratory Rate 16 16 Blood Pressure 119/78 119/78 Blood Pressure Mean 91 91 Pulse Ox 100 100 Oxygen Delivery Method Room Air Positive well nourished and well developed General Appearance ED: well developed; Negative for pallor HEENT Reports moist mucous membranes Eyes PERRL Neck supple Resp normal respiratory effort and clear to auscultation bilaterally Cardio regular rate and regular rhythm GI Inspection: Negative for abdominal distention Auscultation: normoactive bowel sounds Palpation: soft and tender RUQ and Vega's sign; Negative for guarding, rigid, mass or rebound tenderness present Back/Spine no CVA tenderness Extremity full ROM Neuro Sensorium / Orientation: alert Motor Exam: Negative for general weakness Psych mental status grossly normal and thought process normal Skin no wounds General Skin Exam: Negative for jaundice or pallor MDM MDM MDM Narrative Medical decision making narrative: Patient is evaluated for worsening right upper quadrant abdominal pain. The history of kidney stones. Has a positive Vega sign. Patient declines opioid pain medication is she given Toradol for pain medication. Given IV fluids. Ultrasound shows a contracted gallbladder but no stones or other findings consistent of cholecystitis. There are few subcentimeter nonobstructive right renal stones present with no hydronephrosis. Lab work large unremarkable including CBC, CMP, lipase with negative test and normal urinalysis. She continues to have pain but declines pain medication. CT abdomen pelvis obtained given there were kidney stone seen to ensure she does not have renal colic as a cause of her pain and to also further evaluate other: Given that her mother does have a history of Crohn's disease and she has been having abnormal bowel movements for the past week. CT of the abdomen pelvis shows hepatic periportal edema which is nonspecific and does not correlate with her normal liver enzymes. Low suspicion for acute hepatitis. There is some physiologic appearing free fluid in the pelvis. Patient is reevaluated. Will be giving close outpatient follow-up with GI and actually scheduled an appointment for this coming Thursday for further evaluation of this periportal edema. Patient is agreeable with this plan of care. On my review of the patient's CT showed some increased stool burden along the ascending colon and into the hepatic flexure. Will place her on MiraLAX and also empirically start her on PPI therapy in case this is referred peptic ulcer disease/duodenal ulcer disease pain that is causing her symptoms. Patient is agreeable this plan of care. Patient discharged home in stable condition. Lab Data Attestation: I reviewed the patient's lab results. Labs: Laboratory Results - last 24 hr 01/31/25 01/31/25 14:43 16:03 WBC 6.2 RBC 4.22 Hgb 12.7 Hct 36.5 L MCV 86.5 MCH 30.1 MCHC 34.8 RDW Std Deviation 38.6 RDW Coeff of Royal 12.4 Plt Count 309 MPV 10.4 Immature Gran % (Auto) 0.200 Neut % (Auto) 61.7 Lymph % (Auto) 29.6 Republic % (Auto) 6.8 Eos % (Auto) 1.1 Baso % (Auto) 0.6 Absolute Neuts (auto) 3.8 Absolute Lymphs (auto) 1.83 Nucleated RBC % 0 Sodium 140 Potassium 3.9 Chloride 105 Carbon Dioxide 24.1 Anion Gap 11 BUN 13 Creatinine 0.81 Estim Creat Clear Calc 96.80 Est GFR (MDRD) Non-Af 101 BUN/Creatinine Ratio 15.9 Glucose 105 H Calcium 9.4 Total Bilirubin 0.34 AST 20 ALT 15 Alkaline Phosphatase 35 Total Protein 6.7 Albumin 4.3 Globulin 2.4 Albumin/Globulin Ratio 1.8 Lipase 39 Serum , Qual NEGATIVE Urine Color Yellow Urine Clarity Turbid Urine pH 7.0 Ur Specific [place] 1.015 Urine Protein 15 H Urine Glucose (UA) Normal Urine Ketones Negative Urine Occult Blood Negative Urine Nitrite Negative Urine Bilirubin Negative Urine Urobilinogen Normal Ur Leukocyte Esterase Negative Urine RBC 0 SEEN Urine WBC 0 SEEN Ur Squamous Epith Cells 0-5 SEEN Amorphous Sediment 3+ Urine Bacteria 0 SEEN Urine Mucus 0 SEEN Urine Test Cancelled Radiography Diagnostic Testing: Clinical Impression(s) from Imaging Studies Gallbladder Ultrasound 01/31/25 15:38 IMPRESSION: 1. Sonographically normal liver. 2. Contracted gallbladder. No findings to suggest cholecystitis. 3. No intra or extrahepatic biliary ductal dilatation. 4. Few small subcentimeter nonobstructive right renal stones. No hydronephrosis. Reading Location: [facility] Abdomen/Pelvis CT 01/31/25 18:30 IMPRESSION: Hepatic periportal edema, which is nonspecific and can be seen in a variety of conditions, such as cardiac congestive hepatopathy, or acute hepatitis. Clinical correlation recommended. No other acute or active inflammatory intra-abdominal findings. Small volume free fluid within the pelvis, nonspecific but probably physiologic. Reading Location: [facility] Discharge Plan Triage Chief Complaint: Abd Pain ED Provider: Lety Zarco Dx/Rx/DC Orders Clinical Impression: Right upper quadrant abdominal pain, Abnormal abdominal CT scan Instructions: ED Abdominal Pain Unkn Cause Fem Prescriptions: New pantoprazole 20 mg tablet,delayed release (DR/EC) 20 mg PO DAILY Qty: 14 0RF polyethylene glycol 3350 [Miralax] 17 gram/dose powder 17 g PO DAILY PRN (Reason: constipation) Qty: 119 0RF No Action + Iron 1 tab PO/SL DAILY valacyclovir 500 mg tablet 500 mg PO Q8H Patient Comments: TAKE 1 TABLET BY MOUTH Three times a day Primary Care Provider: Care Physician,No Primary Referrals: Friend,Pedrito, [Med Staff - Active Staff] - Care Physician,No Primary [Primary Care Provider] - Activity Restrictions/Additional Instructions: Your lab work was normal and did not show any abnormalities of the gallbladder or active kidney stones that are causing your symptoms. Your CT did show diffuse periportal edema which is nonspecific. I am not sure if this is causing your pain or is an incidental finding. You do also have some increased stool on the right side of your colon. We will have you follow-up with the GI specialist on Thursday ( 02/03) at 11:30 AM. If you have worsening symptoms in the meantime please return to the emergency room. Make sure you are drinking plenty of fluids. Print Language: Mongolian Disposition Disposition: Home, Self Care Discharge Date/Time: 01/31/25 20:51
[2025-01-31 16:05] VITALS: BP 120/74; PULSE 87; RESP 16; O2SAT 97
[2025-01-31 16:13] LABS: Mucous, Urine 0 SEEN /hpf (<or=2+); Red Blood Cells-Urine 0 SEEN /hpf (0-5)
[2025-01-31 16:33] LABS: Color, Urine Yellow (Yellow); Glucose, Dipstick Normal (Normal); Ketone-Dipstick Negative (Negative); Leukocyte Esterase-Dipstick Negative /ul (Negative); Nitrite-Dipstick Negative (Negative); Occult Blood-Urine Negative /ul (Negative); Protein-Dipstick 15 mg/dl (Negative); Specific Gravity, Urine 1.015 (1.002-1.030); Urine Bilirubin Dipstick Negative (Negative)
[2025-01-31 17:46] LABS: Squamous Epithelial Cells - UA 0-5 SEEN /hpf (5-10)
[2025-01-31 18:00] VITALS: BP 126/74; PULSE 60; RESP 17; O2SAT 95
--- NOTE | 2025-01-31 18:30 | CT_ITS ---
PROCEDURE: CT ABDOMEN/PELVIS W IV CONT ONLY 01/31/2025 REASON FOR EXAM: RUQ PAIN TECHNIQUE: Procedure Code: [id number] Modality: CT Procedure: ABDOMEN/PELVIS W IV CONT ONLY Coronal and Sagittal reconstruction series were provided. CONTRAST: Isovue-[id number] VOLUME: 96 mL One or more dose reduction techniques were used (e.g., Automated exposure control, adjustment of the mA and/or kV according to patient size, use of iterative reconstruction technique. RADIATION DOSE SUMMARY: DLP: 296.46 mGycm COMPARISON: Abdominal CT 09/27/2022. Abdominal ultrasound same day 01/31/2025. FINDINGS: Lung bases: Clear. Liver: Normal in size. No focal lesion. There is diffuse periportal edema, nonspecific. Gallbladder: Unremarkable. No biliary ductal dilatation. Spleen: Normal size and morphology. Pancreas: Unremarkable. Adrenals: Unremarkable. Kidneys: Normal, symmetric enhancement. Few bilateral punctate nonobstructive renal stones. No hydroureteronephrosis or perinephric edema on either side. Bladder: Unremarkable. Reproductive Organs: Uterus and adnexae appear within normal limits. Small volume free fluid in the pelvis is nonspecific, and may be physiologic. Bowel: Unremarkable. No evidence of obstruction or active inflammatory process. Appendix appears surgically absent with pericecal chain suture material. Lymph nodes: No enlarged abdominopelvic lymph nodes. Vasculature: Major vascular structures appear patent, normal in course and caliber. Peritoneum / Retroperitoneum: No intraperitoneal free fluid or air. Bones: Unremarkable. CT/Abdomen/Pelvis W IV Cont ONLY IMPRESSION: Hepatic periportal edema, which is nonspecific and can be seen in a variety of conditions, such as cardiac congestive hepatopathy, or acute hepatitis. Clinical correlation recommended. No other acute or active inflammatory intra-abdominal findings. Small volume f ree fluid within the pelvis, nonspecific but probably physiologic. Reading Location: [facility]
[2025-01-31 20:00] VITALS: BP 119/78; PULSE 69; RESP 16; O2SAT 100
[2025-01-31 20:51] VITALS: BP 119/78; PULSE 169; RESP 16; TEMP 37; O2SAT 100
== END 2025-01-31 20:51 | disposition home or self-care (01) ==
PROVIDERS: Emergency Provider Emergency Medicine; Visit Provider Emergency Medicine
DX: R10.11 Right upper quadrant pain (principal); Z87.442 Personal history of urinary calculi; Z98.51 Tubal ligation status; R11.0 Nausea; M54.9 Dorsalgia, unspecified; R93.5 Abnormal findings on diagnostic imaging of other abdominal regions, including retroperitoneum
CPT/HCPCS: 74177; 76705; 80053; 81001; 83690; 84703; 85025; 99283; Q9967; A4216

== ENCOUNTER → 2025-02-03 | Outpatient (CLI) | payer BC, SELFPAY ==
[2025-02-03 12:32] LABS: Hematocrit 38.2 % (37-47); Hemoglobin 13.3 g/dL (12.0-15.0); Immature Granulocytes Count 0.020 X10^3/uL (0.0-0.0); Mean Corp Hgb Conc 34.8 g/dL (32-36); Mean Corpuscular Volume 86.8 fL (81-99); Mean Platelet Vol. 9.8 fl (6.2-12.0); NRBC Flagged by Analyzer 0 % (0-5); Platelet Count 274 K/mm3 (150-450); RBC Distribution Width CV 12.4 % (11.6-14.6); RBC Distribution Width SD 38.7 fl (35.1-43.9); Red Blood Count 4.40 M/mm3 (4.2-5.4); White Blood Count 5.5 K/mm3 (4.4-11.0)
[2025-02-03 13:08] LABS: AST(SGOT) 19 U/L (<=31); Alanine Aminotransfer ALT/SGPT 16 U/L (<=34); Albumin, Serum 4.5 g/dL (3.5-5.0); Alkaline Phosphatase 36 U/L (35-104); Anion Gap 11 (5-15); BUN 15 mg/dL (4-19); BUN/Creat Ratio 17.6 RATIO (10-20); Calcium,Total 9.5 mg/dL (7.6-11.0); Carbon Dioxide 24.3 mmol/L (21.0-32.0); Chloride 105 mmol/L (98-108); Globulin 2.7 g/dL (2.2-4.2); Glucose 142 mg/dL (70-99); Lipase 38 U/L (13-75); Potassium 3.8 mmol/L (3.3-5.1)
== END | disposition home or self-care (01) ==
LOC: LAB 11:55
PROVIDERS: Referring Provider Student in an Organized Health Care Education/Training Program; Visit Provider Student in an Organized Health Care Education/Training Program
DX: R10.11 Right upper quadrant pain (principal)
CPT/HCPCS: 36415; 80053; 83690; 85025

== ENCOUNTER → 2025-02-20 | Outpatient (CLI) | payer BC, SELFPAY ==
--- OUTSIDE RECORDS SUMMARY | 2024-11-21 09:20 | XMS RPT_ITS ---
Author Name Auto Generated Organization [place] Care Team Providers Care Radiology Resident Name Role Phone MAXWELL BIRMINGHAM Attending Unavailable CHRISTO, MARCELLA Attending Unavailable VINNIE, MAXWELL Referring Unavailable CLAYTON, GENESIS Attending Unavailable VINNIE, MAXWELL Referring Unavailable VINNIE, MAXWELL Attending Unavailable JEANNIE CORREA Attending Unavailable PLOTTS, KELVIN Referring Unavailable HAURY, VERENICE Referring Unavailable PLOTTS, KELVIN Attending Unavailable PLOTTS, KELVIN Attending Unavailable DELANEY, GENESIS Attending Unavailable PLOTTS, KELVIN Referring Unavailable DELROY HILL Attending Unavail able CHRISTO, MARCELLA Attending Unavailable CHRISTO, MARCELLA Referring Unavailable HAURY, VERENICE Attending Unavailable HAURY, VERENICE Attending Unavailable EVELYN, GABRIELLA Attending Unavailable EVELYN, GABRIELLA Referring Unavailable EVELYN, GABRIELLA Referring Unavailable NEYSERGEIT ANDREW HAWTHORNERE Attending Unavail able CHRISTO, MARCELLA Referring Unavailable HAURY, VERENICE Referring Unavailable VINNIE, KARANEESH Attending Unavailable PROBLEMS DATE TYPE CONDITION / CODE ATTENDING STATUS [facility] 11/21/2024 Active History of herpe s genitalis / Z86.19(ICD-10) GENESIS DELANEY Active [facility] 11/21/2024 Active care and examination (HCC) / Z39.2(ICD-10) GENESIS DELANEY Active [facility] 10/14/2024 Active care and examination immediately after delivery (HCC) / Z39.0(ICD-10) MAXWELL BIRMINGHAM Active [facility] 10/07/2024 Active 37 weeks gestati on of (HCC) / Z3A.37(ICD-10) MAXWELL BIRMINGHAM Active [facility] 10/04/2024 Active Vaginal discharg e / N89.8(ICD-10) JEANNIE CORREA Active [facility] 08/26/2024 Active History of layton carmencita section / Z98.891(ICD-10) MARCELLA VILLAFUERTE Active [facility] 08/26/2024 Active Encounter for supervision of high risk in third trimester, antepartum (HCC) / O09.93(ICD-10) MARCELLA VILLAFUERTE Active [facility] 09/30/2024 Active 36 weeks gestati on of (HCC) / Z3A.36(ICD-10) MARCELLA VILLAFUERTE Active [facility] 09/21/2024 Active 35 weeks gestati on of (HCC) / Z3A.35(ICD-10) NA Active [facility] 09/09/2024 Active 33 weeks gestati on of (HCC) / Z3A.33(ICD-10) GABRIELLA WILLARD Active [facility] 07/29/2024 Active Marginal inserti on of umbilical cord affecting management of mother (HCC) / O43.199(ICD-10) VERENICE DELACRUZ Active [facility] 08/26/2024 Active 31 weeks gestati on of (HCC) / Z3A.31(ICD-10) VERENICE DELACRUZ Active [facility] 08/26/2024 Active Supervision of h igh risk in second trimester (HCC) / O09.92(ICD-10) NA Active [facility] 08/26/2024 Active 27 weeks gestati on of (HCC) / Z3A.27(ICD-10) NA Active [facility] 07/29/2024 Active Elevated glucose tolerance test / R73.09(ICD-10) NA Active [facility] 07/29/2024 Active Supervision of h igh risk in second trimester / O09.92(ICD-10) NA Active [facility] 07/29/2024 Active 23 weeks gestati on of / Z3A.23(ICD-10) NA Active [facility] 07/29/2024 Active Screening for di abetes mellitus / Z13.1(ICD-10) NA Active [facility] 07/27/2024 Active Itching of both hands / L29.9(ICD-10) NA Active [facility] 07/27/2024 Active 27 weeks gestati on of / Z3A.27(ICD-10) NA Active [facility] 03/18/2024 Active Encounter for supervision of high risk in first trimester, antepartum / O09.91(ICD-10) NA Active [facility] 06/03/2024 Active 13 weeks gestati on of / Z3A.13(ICD-10) NA Active [facility] 03/18/2024 Active 8 weeks gestatio n of / Z3A.08(ICD-10) VERENICE DELACRUZ Active [facility] 03/18/2024 Active with uncertain dates in first trimester / Z34.91(ICD-10) VERENICE DELACRUZ Active [facility] PROCEDURES No Procedure Records Found RESULTS CNPN Observed: 01/31/2025 12:00 AM Status: COMPLETED Source: [facility] Telephone (OBGYWM) APLMER LOCKHART ([id number]) 1995 F Date Time Provider Department 01/31/25 GABRIELLA WILLARD During your visit today, we recorded the following information about you: Cinthia Spring RN 01/31/2025 11:55 AM Addendum Delivered 10/07/24 repeat CS with bilateral salpingectomy at [facility] with JG. No complications during . Pt states about 4 days ago she started having pain under right side of ribs - states pain goes to middle of abdomen.Started as dull pain, now as it comes and goes, getting sharper. (States feels more like side pain than stomach pain per Pt). Majority of time, pain noted in the morning AND evening. Has taken ibuprofen-helps a little. Positioning makes it worse/picking toddler up makes pain worse. Denies feeling constipated/denies feeling gas built up. Sticks to same diet-chicken, salads, waffles every morning w/syrup, jello, celsius drinks (2 per day), and feels hydrated. Does not feel pain gets worse after eating. Pt would like to know if you feel like pain may be related to PP or if she should see urgent care/Establish with PCP? Please advise? JOANNE Dupont Jennifer, MD 01/31/2025 11:46 AM Signed No. This does not sound like its related to . I would start with a PCP. Urgent care won't likely be able to help Cinthia Spring RN 01/31/2025 12:01 PM Signed Pt notified and voiced understanding. Pt states she does not a PCP. Advised Pt this RN can transfer her to [facility] to get her scheduled arsen with provider accepting new patients. Pt agreeable. Advised Pt that if pain is not tolerable that it would be advised to go to ER. Also advised Pt that if the wait time for new PCP at [facility] is longer than she is able to wait, [facility] across from [facility] in [place], may be able to accommodate new patient appt AND to give their office a call. Pt voiced understanding. Cinthia Spring RN Allergies As of Date: 01/31/2025 Noted Allergy Reaction BEE VENOM PROTEIN (HONEY BEE) 05/08/2022 7 - Swelling 9 - Itching Comments: Bee stings Date Reviewed: 11/21/2024 Reviewed by: Cooper Larios MA - Fully Assessed Reason for Visit: Pain under right ribs [Other] Prescriptions as of 01/31/2025 - prental multivitamin 27 mg iron- 800 mcg tablet Take 1 tablet by mouth once daily. Problem List As Of Date 01/31/2025 Noted Resolved Acute appendicitis without mention of peritonit*03/25/2011 10/28/2022 Dysmenorrhea [N94.6] 03/16/2012 10/28/2022 HSV (herpes simplex virus) anogenital infection*07/18/2019 12/15/2022 Current with history of spontaneous a*05/08/2022 12/15/2022 Spotting in [O26.859] 05/08/2022 12/15/2022 Family history of defect [Z82.79] 05/08/2022 12/15/2022 Patient request for diagnostic testing [Z01.89] 05/08/2022 12/15/2022 Encounter for supervision of other normal pregn*10/28/2022 12/15/2022 History of herpes genitalis [Z86.19] 03/18/2024 History of section [Z98.891] 03/18/2024 10/14/2024 Cervical polyp [N84.1] 03/18/2024 Nausea and vomiting during (HCC) [O21*03/18/2024 10/14/2024 History of miscarriage [Z87.59] 03/18/2024 Marginal insertion of umbilical cord affecting *07/29/2024 10/14/2024 Elevated glucose tolerance test [R73.09] 07/29/2024 10/14/2024 Encounter for supervision of high risk pregnanc*08/26/2024 10/14/2024 Encounter Status:Closed by CINTHIA SPRING on 01/31/25 PROGRESS Observed: 11/21/2024 9:30 AM Status: COMPLETED Source: [facility] ID: [id number] Author: GENESIS DELANEY APRN.CNM Service: ? Author Type: Lead Clinical Research Coordinator Type: Progress Notes Filed: 11/21/2024 09:59 Note Text: VISIT Palmer Lockhart is a 29 year old year old here for visit. Delivery Summary: Date: 10/07/2024 Time: 9:11 pm Sex: F Name: Matt Weight: 7# 7oz Outcome: RCS Anesthesia: Spinal Delivered by: JG Perineal repair: NA ROS/ Recovery: Feeding: Bottle feeding problems: None Menses since delivery: None Menstrual pattern prior to : Regular periods [place] since delivery: Not resumed Depression: denies symptoms of depression. OB Depression and Anxiety Screening- This Encounter Feeling down, depressed, or hopeless: Not at all Little interest or pleasure in doing things: Not at all Feeling nervous, anxious, or on edge Not at all Not being able to stop or control worrying Not at all Anxiety Pre-Screening Total (If >/= 3 additional questions will be reviewed) 0 Emotional support: Yes Bowel symptoms: Negative for abdominal discomfort, blood in stools or black stools Abdomen: She reports no incisional redness, tenderness, erythema Bladder symptoms: No dysuria, gross hematuria, urinary frequency, urinary urgency, or incontinence Other issues: None Last Pap: 2023 normal HPV: N/A PAST MEDICAL HISTORY Diagnosis Date Abdominal pain, right lower quadrant Suspected ruptured ovarian cyst Acute appendicitis without mention of peritonitis 03/25/2011 Dysmenorrhea HSV (herpes simplex virus) anogenital infection 2017 Kidney stone 2022 Miscarriage (HCC) PMH - PAST MEDICAL HISTORY OF 11/06/2001 color vision - normal PM - PAST MEDICAL HISTORY OF Started Menstrual Period 04/02 PAST SURGICAL HISTORY Procedure Laterality Date DELIVERY ONLY 12/09/2022 LTCS DELIVERY ONLY Bilateral 10/07/2024 with bilateral salpingectomy [facility], DIAG AND/OR THERAPEUTIC 11/29/2020 hysteroscopy DANSHAYLA at [facility] LAPAROSCOPIC APPENDECTOMY 03/25/2011 FAMILY HISTORY Problem Relation Age of Onset other (Kidney Stones) Mother Crohn's Disease Mother Gall Stones Mother Liver Disease Mother other (congenital hip disease) Father Arthritis Father No Known Problems Sister No Known Problems Sister Pneumothorax Brother Hypertension Maternal Grandmother Heart Maternal Grandmother Lung Cancer Maternal Grandmother Stroke Maternal Grandmother Cancer Maternal Grandfather No Known Problems Paternal Grandmother Cancer Paternal Grandfather Paternal side Cancer Maternal Uncle Hodgkins Social History Tobacco Use Smoking status: Never Smokeless tobacco: Never Vaping Use Vaping status: Never Used Substance Use Topics Alcohol use: No Drug use: No PHYSICAL EXAMINATION: SENSITIVE EXAM: The sensitive examination was discussed with the Patient or Patient's Authorized Wood Bucker. As applicable, any other physician, advance practice provider, medical student, or other health professional student that will be observing or involved in the sensitive examination for educational or training purposes was discussed with the Patient or Authorized Wood Bucker. The Patient or Authorized Wood Bucker has agreed to proceed with the sensitive examination. (Sensitive examination includes inspection and/or palpation of the breasts, pelvis, prostate and anorectal regions). BP 112/68 Wt 137 lb (62.1kg) LMP 01/18/2024 GENERAL: pleasant, female in no apparent distress HEENT: Normocephalic, atraumatic, mucus membranes moist, and no lesions NECK: Supple, full range of motion, no adenopathy, and thyroid normal DERMATOLOGY: Normal, without lesions, non-icteric, and non-hirsute BREAST: soft, non-tender, symmetric, no dominant mass, normal nipple-areolar complex, no lymphadenopathy, and no nipple discharge CHEST: Normal inspiratory effort ABDOMEN: soft, non-tender, and no masses. INCISION: No incisional redness, swelling, or drainage PELVIC: external genitalia normal, normal Bartholin's glands, urethra, [place]'s glands, no vulvar lesions, no cervical lesions, good vaginal support, physiologic discharge present, normal appearing perineal body and perianal region BIMANUAL: uterus normal size, shape and consistency, no adnexal masses, and non-tender NEURO: alert and oriented x3,exam grossly non-focal EXTREMITIES: normal ASSESSMENT AND PLAN: 29 year old status post CS with normal course. Contraception plan: tubal ligation Follow up: RTC for annual exams and PRN Information given on scar massage and dry needling. Genesis Delaney APRN.MARIELM PROGRESS Observed: 10/14/2024 9:00 AM Status: COMPLETED Source: [facility] ID: [id number] Author: MAXWELL BIRMINGHAM MD Service: ? Author Type: Physician Type: Progress Notes Filed: 10/14/2024 09:29 Note Text: EARLY VISIT Palmer Lockhart is a 28 year old here for 1 week visit. Delivery Summary: c/sec 10/07/2024 by Song CHILD at 9:11 PM at 37 wks, 4 days. Female-Matt ROS: General: Denies any fever or chills Hypertension Screening: Headache? No. Visual Changes? No Epigastric Pain? No Increased Swelling? No Taking any BP medications at home? No If applicable, monitoring BP at home? (If Yes, include results) NA Mood: normal Depression: denies symptoms of depression. OB Depression and Anxiety Screening- This Encounter None Feeding: Bottle feeding problems: None Bladder: No dysuria, gross hematuria, urinary frequency, urinary urgency, or incontinence Bowel symptoms: Negative for abdominal discomfort, blood in stools or black stools and change in bowel habits Abdomen: She reports no incisional redness, tenderness, erythema Bleeding: spotting Bottom and Perineum: No issues Sleep: no sleep concerns, feels rested [place] since delivery: Not resumed Emotional support: Yes Exercise: N/A Other issues: None SENSITIVE EXAM: Sensitive exam not performed. PHYSICAL EXAMINATION: LMP 01/18/2024 (Exact Date) General: pleasant,female in no apparent distress, AANDO x 3. Skin warm and intact. Breast: Deferred Abdomen: soft, non-tender, and no masses /Incision: No incisional redness, swelling, or drainage Pelvic: Deferred Bimanual: Deferred ASSESSMENT AND PLAN: 28 year old status post CS with normal course. Contraception plan: tubal ligation. Reinforced 6-week pelvic rest. Encouraged condom usage should patient deviate. Education: resources provided - see MA/RN note Follow up: Return to Clinic for 6 week visit and as needed Maxwell Birmingham MD PROGRESS Observed: 10/10/2024 8:35 AM Status: COMPLETED Source: [facility] HNO ID: [id number] Author: GABRIELLA PATEL RN Service: ? Author Type: Registered Nurse Type: Progress Notes Filed: 10/10/2024 08:39 Note Text: Patient delivered via C/S at [facility] on 10/07/24 per Gabriella Willard MD . See OB Outcome note. Gabriella Patel RN BACTERIAL VAGINOSIS NAAT Collected: 3:15 PM Status: F Source: [facility] Order Comment: Specimen Type : SWAB Ordering Facility: [facility] Address: [address] [place] [address] TYPE CODE TESTS RESULT OUT OF RANGE REFERENCE UNITS LAB 32656-5(LOINC) BV bacteria rRNA Vag Ql JESSI+probe Not detected Not detected Performed By: #### CVTV, BVA MP #### [facility] CLIA [id number] [address] [place], [place] [address] [place] [address] [place] IRASEMA/TRICHOMONAS NAAT Collected: 3:15 PM Status: F Source: [facility] Order Comment: Specimen Type : SWAB Ordering Facility: [facility] Address: [address] [place] [address] TYPE CODE TESTS RESULT OUT OF RANGE REFERENCE UNITS LAB 90845-7(LOINC ) Irasema DNA Vag Ql JESSI+probe Not detected Not detected LAB 27744-7(LOINC ) C glabrata RNA Vag Ql JESSI+probe Not detected Not detected LAB 27079-2(LOINC ) T vaginalis DNA Spec Ql JESSI+probe Not detected Not detected Performed By: #### RAO QUINTERO MP #### [facility] CLIA [id number] [address] [place] [address] OF [facility] CNOV Observed: 10/04/2024 2:45 PM Status: COMPLETED Source: [facility] Office Visit (OBGYWM) PALMER LOCKHART ([id number]) 1995 F Date Time Provider Department 10/04/24 2:45 PM JEANNIE CORREA OBGYWM During your visit today, we recorded the following information about you: Blood pressure Weight 122/68 71.4 kg Jeannie Correa, RADHA.FERTILIZER PROCESSING SUPERVISOR 10/04/2024 3:20 PM Signed Patient declined deaf teacher. Palmer Lockhart is a 28 year old female who presents for problem visit labial swelling, vaginal discharge for 1 day.. HPI: Patient states that she noticed the labial swelling yesterday about this time and has noticed an increase in clear vaginal discharge since then. She states that she needed to change a pad approximately 3-4 times a day. 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 History Comments: Sexual Activity: Not Asked; Male Contraception: Pill PAST MEDICAL HISTORY Diagnosis Date Abdominal pain, right lower quadrant Suspected ruptured ovarian cyst Acute appendicitis without mention of peritonitis 03/25/2011 Dysmenorrhea HSV (herpes simplex virus) anogenital infection 2017 Kidney stone 2022 Miscarriage (HCC) PMH - PAST MEDICAL HISTORY OF 11/06/2001 color vision - normal PMH - PAST MEDICAL HISTORY OF Started Menstrual Period 04/02 PAST SURGICAL HISTORY Procedure Laterality Date DELIVERY ONLY 12/09/2022 LTCS DANDC, DIAG AND/OR THERAPEUTIC 11/29/2020 hysteroscopy DANDC at [facility] LAPAROSCOPIC APPENDECTOMY 03/25/2011 FAMILY HISTORY Problem Relation Age of Onset other (Kidney Stones) Mother Crohn's Disease Mother Gall Stones Mother Liver Disease Mother other (congenital hip disease) Father Arthritis Father No Known Problems Sister No Known Problems Sister Pneumothorax Brother Hypertension Maternal Grandmother Heart Maternal Grandmother Lung Cancer Maternal Grandmother Stroke Maternal Grandmother Cancer Maternal Grandfather No Known Problems Paternal Grandmother Cancer Paternal Grandfather Paternal side Cancer Maternal Uncle Hodgkins Social History Tobacco Use Smoking status: Never Smokeless tobacco: Never Vaping Use Vaping status: Never Used Substance Use Topics Alcohol use: No Drug use: No Current Outpatient Medications Medication Sig acyclovir (ZOVIRAX) 400 mg tablet Take 1 tablet by mouth three times a day. aspirin, enteric coated (ASPIRIN, ENTERIC COATED) 81 mg EC tablet Take 1 tablet by mouth once daily. prental multivitamin 27 mg iron- 800 mcg tablet Take 1 tablet by mouth once daily. miconazole (MONISTAT 7) 2 % vaginal cream Use 1 applicator vaginally daily at bedtime for 7 days. triamcinolone (KENALOG) 0.025 % cream Apply to affected area two times a day. No current facility-administered medications for this visit. Allergies As of Date: 10/04/2024 Allergen Noted Reaction BEE VENOM PROTEIN (HONEY BEE) 05/08/2022 Swelling and Itching Fully Assessed 10/04/2024 REVIEW OF SYSTEMS Expanded ROS: N/A Allergies and current medication updated:Yes SENSITIVE EXAM: The sensitive examination was discussed with the Patient or Patient's Authorized Wood Bucker. As applicable, any other physician, advance practice provider, medical student, or other health professional student that will be observing or involved in the sensitive examination for educational or training purposes was discussed with the Patient or Authorized Wood Bucker. The Patient or Authorized Wood Bucker has agreed to proceed with the sensitive examination. (Sensitive examination includes inspection and/or palpation of the breasts, pelvis, prostate and anorectal regions). EXAM: BP 122/68 Wt 157 lb 6.4 oz (71.4kg) LMP 01/18/2024 GENERAL: pleasant, female in no apparent distress HEENT: Normocephalic, atraumatic, mucus membranes moist, and no lesions CHEST: Normal inspiratory effort PELVIC: normal appearing perineal body and perianal region, B/L red and slightly swolllen *Dr Birmingham performed sterile speculum exam, noting likely yeast infection, negative nitrazine test, negative pooling, negative ferning test. BIMANUAL: deferred NEURO: alert and oriented x3,exam grossly non-focal EXTREMITIES: normal ASSESSMENT AND PLAN: Assessment AND Plan Vaginal discharge Orders: IRASEMA/TRICHOMONAS NAAT BACTERIAL VAGINOSIS NAAT Monistat 7 and Kenalog ordered Will notify patient of test results. Review labor precautions Jeannie Correa APRN.DOMENIC Medical Decision Making: Problems: Low: Acute, uncomplicated illness or injury Data: Unique test(s) ordered: 2 Risk: Moderate: Drug management Medical Decision Making Level: 3 - Low Allergies As of Date: 10/04/2024 Noted Allergy Reaction BEE VENOM PROTEIN (HONEY BEE) 05/08/2022 7 - Swelling 9 - Itching Comments: Bee stings Date Reviewed: 10/04/2024 Reviewed by: Amie Lemus LPN - Fully Assessed Reason for Visit: Problem Visit [Other] Primary Visit Diagnosis:Vaginal discharge [N89.8] Order(s):IRASEMA/TRICHOMONAS NAAT [SQCVTV] Order #: [id number]. #:[id number] BACTERIAL VAGINOSIS NAAT [SQBVAMP] Order #: [id number]. #:[id number] miconazole (MONISTAT 7) 2 % vaginal creamUse 1 applicator vaginally daily at bedtime for 7 days.Disp: 45 gRfl: 0 triamcinolone (KENALOG) 0.025 % creamApply to affected area two times a day.Disp: 15 gRfl: 0 Prescriptions as of 10/04/2024 - miconazole (MONISTAT 7) 2 % vaginal cream Use 1 applicator vaginally daily at bedtime for 7 days. - triamcinolone (KENALOG) 0.025 % cream Apply to affected area two times a day. - acyclovir (ZOVIRAX) 400 mg tablet Take 1 tablet by mouth three times a day. - aspirin, enteric coated (ASPIRIN, ENTERIC COATED) 81 mg EC tablet Take 1 tablet by mouth once daily. - prental multivitamin 27 mg iron- 800 mcg tablet Take 1 tablet by mouth once daily. Problem List As Of Date 10/04/2024 Noted Resolved Acute appendicitis without mention of peritonit*03/25/2011 10/28/2022 Dysmenorrhea [N94.6] 03/16/2012 10/28/2022 HSV (herpes simplex virus) anogenital infection*07/18/2019 12/15/2022 Current with history of spontaneous a*05/08/2022 12/15/2022 Spotting in [O26.859] 05/08/2022 12/15/2022 Family history of defect [Z82.79] 05/08/2022 12/15/2022 Patient request for diagnostic testing [Z01.89] 05/08/2022 12/15/2022 Encounter for supervision of other normal pregn*10/28/2022 12/15/2022 History of herpes genitalis [Z86.19] 03/18/2024 History of section [Z98.891] 03/18/2024 Cervical polyp [N84.1] 03/18/2024 Nausea and vomiting during [O21.9] 03/18/2024 History of miscarriage [Z87.59] 03/18/2024 Marginal insertion of umbilical cord affecting *07/29/2024 Elevated glucose tolerance test [R73.09] 07/29/2024 Encounter for supervision of high risk pregnanc*08/26/2024 Prescriptions ordered this encounter Disp Refills Start End MICONAZOLE NITRATE 2 % VAGINAL CREAM 45 g 0 10/04/2024 10/11/2024 Route: VAGINAL Sig: Use 1 applicator vaginally daily at bedtime for 7 days. TRIAMCINOLONE ACETONIDE 0.025 % TOPI* 15 g 0 10/04/2024 Route: TOPICAL Sig: Apply to affected area two times a day. Encounter Status:Closed by JEANNIE CORREA on 10/04/24 PROGRESS Observed: 10/04/2024 2:35 PM Status: COMPLETED Source: [facility]NO ID: [id number] Author: JEANNIE CORREA APRN.FERTILIZER PROCESSING SUPERVISOR Service: ? Author Type: Nurse Practitioner Type: Progress Notes Filed: 10/04/2024 15:20 Note Text: Patient declined deaf teacher. Palmer Lockhart is a 28 year old female who presents for problem visit labial swelling, vaginal discharge for 1 day.. HPI: Patient states that she noticed the labial swelling yesterday about this time and has noticed an increase in clear vaginal discharge since then. She states that she needed to change a pad approximately 3-4 times a day. 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 History Comments: Sexual Activity: Not Asked; Male Contraception: Pill PAST MEDICAL HISTORY Diagnosis Date Abdominal pain, right lower quadrant Suspected ruptured ovarian cyst Acute appendicitis without mention of peritonitis 03/25/2011 Dysmenorrhea HSV (herpes simplex virus) anogenital infection 2017 Kidney stone 2022 Miscarriage (HCC) PMH - PAST MEDICAL HISTORY OF 11/06/2001 color vision - normal PMH - PAST MEDICAL HISTORY OF Started Menstrual Period 04/02 PAST SURGICAL HISTORY Procedure Laterality Date DELIVERY ONLY 12/09/2022 LTCS DANDC, DIAG AND/OR THERAPEUTIC 11/29/2020 hysteroscopy DANDC at [facility] LAPAROSCOPIC APPENDECTOMY 03/25/2011 FAMILY HISTORY Problem Relation Age of Onset other (Kidney Stones) Mother Crohn's Disease Mother Gall Stones Mother Liver Disease Mother other (congenital hip disease) Father Arthritis Father No Known Problems Sister No Known Problems Sister Pneumothorax Brother Hypertension Maternal Grandmother Heart Maternal Grandmother Lung Cancer Maternal Grandmother Stroke Maternal Grandmother Cancer Maternal Grandfather No Known Problems Paternal Grandmother Cancer Paternal Grandfather Paternal side Cancer Maternal Uncle Hodgkins Social History Tobacco Use Smoking status: Never Smokeless tobacco: Never Vaping Use Vaping status: Never Used Substance Use Topics Alcohol use: No Drug use: No Current Outpatient Medications Medication Sig acyclovir (ZOVIRAX) 400 mg tablet Take 1 tablet by mouth three times a day. aspirin, enteric coated (ASPIRIN, ENTERIC COATED) 81 mg EC tablet Take 1 tablet by mouth once daily. prental multivitamin 27 mg iron- 800 mcg tablet Take 1 tablet by mouth once daily. miconazole (MONISTAT 7) 2 % vaginal cream Use 1 applicator vaginally daily at bedtime for 7 days. triamcinolone (KENALOG) 0.025 % cream Apply to affected area two times a day. No current facility-administered medications for this visit. Allergies As of Date: 10/04/2024 Allergen Noted Reaction BEE VENOM PROTEIN (HONEY BEE) 05/08/2022 Swelling and Itching Fully Assessed 10/04/2024 REVIEW OF SYSTEMS Expanded ROS: N/A Allergies and current medication updated:Yes SENSITIVE EXAM: The sensitive examination was discussed with the Patient or Patient's Authorized Wood Bucker. As applicable, any other physician, advance practice provider, medical student, or other health professional student that will be observing or involved in the sensitive examination for educational or training purposes was discussed with the Patient or Authorized Wood Bucker. The Patient or Authorized Wood Bucker has agreed to proceed with the sensitive examination. (Sensitive examination includes inspection and/or palpation of the breasts, pelvis, prostate and anorectal regions). EXAM: BP 122/68 Wt 157 lb 6.4 oz (71.4kg) LMP 01/18/2024 GENERAL: pleasant, female in no apparent distress HEENT: Normocephalic, atraumatic, mucus membranes moist, and no lesions CHEST: Normal inspiratory effort PELVIC: normal appearing perineal body and perianal region, B/L red and slightly swolllen *Dr Birmingham performed sterile speculum exam, noting likely yeast infection, negative nitrazine test, negative pooling, negative ferning test. BIMANUAL: deferred NEURO: alert and oriented x3,exam grossly non-focal EXTREMITIES: normal ASSESSMENT AND PLAN: Assessment AND Plan Vaginal discharge Orders: IRASEMA/TRICHOMONAS NAAT BACTERIAL VAGINOSIS NAAT Monistat 7 and Kenalog ordered Will notify patient of test results. Review labor precautions Jeannie Correa, RADHA.FERTILIZER PROCESSING SUPERVISOR Medical Decision Making: Problems: Low: Acute, uncomplicated illness or injury Data: Unique test(s) ordered: 2 Risk: Moderate: Drug management Medical Decision Making Level: 3 - Low ROUTINE, GROUP B STREPTOCOCCUS BY PCR Observed: 09/22/2024 8:55 AM Status: F Source: [facility] GRP B STREPTOCOCCUS DNA, ROU BRIE : Not detected Performed By: #### GBPCR ### # [facility] CLIA [id number] [address] [place] [address] [place] [address] [place] CNPN Observed: 09/06/2024 12:00 AM Status: COMPLETED Source: [facility] Telephone (OBGYWM) JUDYPALMER M ([id number]) 1995 F Date Time Provider Department 09/06/24 GABRIELLA WILLARD OBGYWM During your visit today, we recorded the following information about you: Cinthia Spring RN 09/06/2024 11:25 AM Signed 33w1d Over the past 15 hours intermittent contractions/Pt states worse this morning than last night. Able to talk through/states these feel like [place] Rasmussen contractions at this time. Pt c/o chest pain that started around 3am. Describes as aching AND continuous. Rating pain 6/10 at this time. States does have some acid reflux. Yesterday Pt states she vomited a couple times and has had some heartburn. C/o nausea-has not taken any medications. Reviewed the healthy guide recommendations re: Unisom AND Vitamin B6 to help with nausea. Pt states shortness of breath is more noticeable within the past couple of weeks/worse with activity (has toddler she chases around). Pt also states that with the chest pain that began at 3am noticed shortness of breath. Pt states the Chest pain is new for her. Denies having any lower extremity pain. Denies LOF/Vaginal bleeding Active FM. Advised Pt at this time, with the chest pain being continuous AND 6/10 with shortness of breath also present, that is is recommended that she go to the nearest ER to be evaluated. Pt states she has someone to take her and would be going to [facility]. Cinthia Spring RN Allergies As of Date: 09/06/2024 Noted Allergy Reaction BEE VENOM PROTEIN (HONEY BEE) 05/08/2022 7 - Swelling 9 - Itching Comments: Bee stings Date Reviewed: 08/26/2024 Reviewed by: Verenice Delacruz APRN.FERTILIZER PROCESSING SUPERVISOR - Fully Assessed Reason for Visit: Chest pain/shortness of breath [Other] Prescriptions as of 09/12/2024 - aspirin, enteric coated (ASPIRIN, ENTERIC COATED) 81 mg EC tablet Take 1 tablet by mouth once daily. - prental multivitamin 27 mg iron- 800 mcg tablet Take 1 tablet by mouth once daily. Problem List As Of Date 09/06/2024 Noted Resolved Acute appendicitis without mention of peritonit*03/25/2011 10/28/2022 Dysmenorrhea [N94.6] 03/16/2012 10/28/2022 HSV (herpes simplex virus) anogenital infection*07/18/2019 12/15/2022 Current with history of spontaneous a*05/08/2022 12/15/2022 Spotting in [O26.859] 05/08/2022 12/15/2022 Family history of defect [Z82.79] 05/08/2022 12/15/2022 Patient request for diagnostic testing [Z01.89] 05/08/2022 12/15/2022 Encounter for supervision of other normal pregn*10/28/2022 12/15/2022 History of herpes genitalis [Z86.19] 03/18/2024 History of section [Z98.891] 03/18/2024 Cervical polyp [N84.1] 03/18/2024 Nausea and vomiting during [O21.9] 03/18/2024 History of miscarriage [Z87.59] 03/18/2024 Marginal insertion of umbilical cord affecting *07/29/2024 Elevated glucose tolerance test [R73.09] 07/29/2024 Encounter for supervision of high risk pregnanc*08/26/2024 Encounter Status:Closed by CINTHIA SPRING on 09/12/24 GLUCOSE GESTATIONAL, 3 HOUR Collected: 08/06/2024 11:10 AM Status: F Source: [facility] Order Comment: Specimen Type : BLOOD SPECIMEN Ordering Facility: [facility] Address: [address] [place] [address] TYPE CODE TESTS RESULT OUT OF RANGE REFERENCE UNITS LAB 88849-6(LOINC) Glucose 3h p chal SerPl-nc 126 74-139 mg/dL Result Comment: [place] Con kellen of Obstetricians and Gynecologists (Mohr/Anamaria) guidelines state gestational diabetes mellitus is present when 2 or more of the plasma glucose concentrations meet or exceed the following levels: fastin mg/dl, 1 hr: 180 mg/dl, 2 hr: 155 mg/dl, and 3 hr: 140 mg/dl. Performed By: #### GTGST3 ## ## [facility] CLIA [id number] [address] [place] [address] [place] GLUCOSE GESTATIONAL, 2 HOUR Collected: 08/06/2024 10:16 AM Status: F Source: [facility] Comment: Specimen Type : BLOOD SPECIMEN Ordering Facility: [facility] Address: [address] [place] [address] TYPE CODE TESTS RESULT OUT OF RANGE REFERENCE UNITS LAB 49247-6(LOINC) Glucose 2h p chal SerPl-mCnc 151 74-154 mg/dL Result Comment: [place] Con kellen of Obstetricians and Gynecologists (Mohr/Coustan) guidelines state gestational diabetes mellitus is present when 2 or more of the plasma glucose concentrations meet or exceed the following levels: fastin mg/dl, 1 hr: 180 mg/dl, 2 hr: 155 mg/dl, and 3 hr: 140 mg/dl. Performed By: #### GTGST2 ## ## [facility] CLIA [id number] [address] [place] [address] OF [facility] GLUCOSE GESTATIONAL, 1 HOUR Collected: 08/06/2024 9:18 AM Status: F Source: [facility] Comment: Specimen Type : BLOOD SPECIMEN Ordering Facility: [facility] Address: [address] [place] [address] TYPE CODE TESTS RESULT OUT OF RANGE REFERENCE UNITS LAB 39485-8(LOINC) Glucose 1h p chal SerPl-mCnc 166 74-179 mg/dL Result Comment: [place] Con kellen of Obstetricians and Gynecologists (Mohr/Coustan) guidelines state gestational diabetes mellitus is present when 2 or more of the plasma glucose concentrations meet or exceed the following levels: fastin mg/dl, 1 hr: 180 mg/dl, 2 hr: 155 mg/dl, and 3 hr: 140 mg/dl. Performed By: #### GTGST1 ## ## [facility] CLIA [id number] [address] [place], [place] [id number] [place] GLUCOSE GESTATIONAL, FASTING Collected: 08/06/2024 8:19 AM Status: F Source: [facility] Comment: Specimen Type : BLOOD SPECIMEN Ordering Facility: [facility] Address: [address] [place] [address] TYPE CODE TESTS RESULT OUT OF RANGE REFERENCE UNITS LAB 1558-6(LOINC) Glucose p fast SerPl-mCnc 65 Low 74-94 mg/dL Result Comment: [place] Con kellen of Obstetricians and Gynecologists (Mohr/Coustan) guidelines state gestational diabetes mellitus is present when 2 or more of the plasma glucose concentrations meet or exceed the following levels: fastin mg/dl, 1 hr: 180 mg/dl, 2 hr: 155 mg/dl, and 3 hr: 140 mg/dl. Performed By: #### GTGSTF ## ## [facility] CLIA [id number] [address] [place], [place] [id number] [place] GESTATIONAL GLUCOSE SCREEN, 1-HOUR, 50 GRAM, NON-FASTING Collected: 07/29/2024 11:41 AM Status: F Source: [facility] Comment: Specimen Type : BLOOD SPECIMEN Ordering Facility: [facility] Address: [address] [place] [address] TYPE CODE TESTS RESULT OUT OF RANGE REFERENCE UNITS LAB 2345-7(LOINC) Glucose SerPl-mCnc 138 High 74-134 mg/dL Result Comment: [place] Con kellen of Obstetricians and Gynecologists (Mohr/Coustan) guidelines state a gestational diabetes mellitus positive screen is made, in women not previously diagnosed with overt diabetes, when the 1 hr plasma glucose level is equal to or above 140 mg/dL. The [facility] As[employer]er Final and Women[facility] [employer] recommends a 135 mg/dL cutoff. Performed By: #### GLTGST ## ## [facility] CLIA [id number] [address] [place] [address] [place] REAGIN+T PALLIDUM IGG+IGM SERPL-IMP Collected: 07/29/2024 11:41 AM Status: F Source: [facility] Order Comment: Specimen Type : BLOOD SPECIMEN Ordering Facility: [facility] Address: [address] [place] [address] TYPE CODE TESTS RESULT OUT OF RANGE REFERENCE UNITS LAB 42401-3(LOINC) T pallidum IgG+IgM Ser Ql IA Nonreactive Nonreactive LAB 33098-6(LOINC) Reagin+T pallidum IgG+IgM SerPl-Imp Cannot exclude recent Treponemal infection if specimen collected within 7-10 days after appearance of suspect lesions or 2-3 weeks after an exposure. Clinical correlation is required. Performed By: #### 19838-4 # ### [facility] CLIA [id number] [address] [place] [address] [place] PROGRESS Observed: 07/29/2024 10:46 AM Status: COMPLETED Source: [facility] HNO ID: [id number] Author: CARL MCARTHUR MA Service: ? Author Type: Wafer Polishing Worker Type: Progress Notes Filed: 07/29/2024 11:17 Note Text: Patient identified by name and date of . Palmer Lockhart presents today for a vaccination of Tdap. Patient denies an allergy to latex: yes Patient denies a severe (life-threatening) allergy to a previous dose of Tdap, DTP, DTaP, DT or Td vaccine. Yes Patient denies history of epilepsy or neurological problems: Yes Patient is afebrile and denies being moderately or severely ill: Yes Patient denies history of Guillain-[place] Syndrome (a severe paralytic illness): Yes Tdap Adacel injection was given without incident. See immunizations for details of immunizations administered today. VIS sheet provided: Yes Provider Essie was present in office at time of injection. Carl Mcarthur MA CBC W AUTO DIFF BLD Collected: 07/27/2024 11:23 AM S tatus: F Source: [facility] Order Comment: Specimen Type : BLOOD SPECIMEN Ordering Facility: [facility] Address: [address] [place] [address] TYPE CODE TESTS RESULT OUT OF RANGE REFERENCE UNITS LAB 6690-2(LOINC) WBC # Bld Auto 8.98 3.70-11.00 k/uL LAB 789-8(LOINC) RBC # Bld Auto 3.67 Low 3.90-5.20 m/ uL LAB 718-7([facility]) Hgb Bld-mCnc 11.6 11.5-15.5 g/dL LAB 4544-3([facility]) Hct VFr Bld Auto 32.8 Low 36.0-46.0 % LAB 787-2([facility]) MCV RBC Auto 89.4 80.0-100.0 fL LAB 785-6([facility]) MCH RBC Qn Auto 31.6 26.0-34.0 p g LAB 786-4([facility]) MCHC RBC Auto-mCnc 35.4 30.5-36.0 g/dL LAB 38216-5([facility]) RDW RBC-Rto 13.8 11.5-15.0 % LAB 777-3([facility]) Platelet # Bld Auto 204 150-400 k/uL LAB 02281-3([facility]) PMV Bld Auto 9.9 9.0-12.7 fL LAB 770-8([facility]) Neutrophils/leuk NFr Bld Auto 75.2 % LAB 751-8([facility]) Neutrophils # Bld Auto 6.75 1.45-7.50 k/uL LAB 736-9([facility]) Lymphocytes/leuk NFr Bld Auto 15.8 % LAB 731-0([facility]) Lymphocytes # Bld Auto 1.42 1.00-4.00 k/uL LAB 5905-5([facility]) Monocytes/leuk NFr Bld Auto 7.1 % LAB 742-7([facility]) Monocytes # Bld Auto 0.64 <0.87 k/uL LAB 713-8([facility]) Eosinophil/leuk NFr Bld Auto 0.6 % LAB 711-2([facility]) Eosinophil # Bld Auto 0.05 <0.46 k/uL LAB 706-2([facility]) Basophils/leuk NFr Bld Auto 0.2 % LAB 704-7([facility]) Basophils # Bld Auto <0.03 <0.11 k/uL LAB 82914-3([facility]) Imm Granulocytes/jocelyn k NFr Bld Auto 1.1 % LAB 90974-9([facility]) Imm Granulocytes # Bld Auto 0.10 High <0.10 k/uL LAB 63785-5(LOINC) nRBC/100 WBC Bld-Rto 0.0 /100 WBC LAB 771-6(LOINC) nRBC # Bld Auto <0.01 <0.01 k/u L LAB 52851-3(LOINC) Differential method Bld Auto Performed By: #### 57539-8 # ### [facility] CLIA [id number] [address] [place] [address] [place] COMP METAB 2000 PNL SERPL Collected: 11:23 AM Status: F Source: [facility] Order Comment: Specimen Type : BLOOD SPECIMEN Ordering Facility: [facility] Address: [address] [place] [address] TYPE CODE TESTS RESULT OUT OF RANGE REFERENCE UNITS LAB 2885-2(LOINC) Prot SerPl-mCnc 6.3 6.3-8.0 g/dL LAB 1751-7(LOINC) Albumin SerPl-mCnc 3.7 Low 3.9-4.9 g/dL LAB 68044-5(LOINC) Calcium SerPl-mCnc 9.4 8.5-10.2 mg/dL LAB 1975-2(LOINC) Bilirub SerPl-mCnc 0.2 0.2-1.3 mg/dL LAB 6768-6(LOINC) ALP SerPl-cCnc 45 34-123 U/L LAB 1920-8(LOINC) AST SerPl-cCnc 9 Low 13-35 U/L LAB 1742-6(LOINC) ALT SerPl-cCnc <5 Low 7-38 U/L LAB 2345-7(LOINC) Glucose SerPl-mCnc 72 Low 74-99 mg/dL Result Comment: The [place] Diabetes Association (ADA) provides guidance for cutoff values for fasting glucose and random glucose. The ADA defines fasting as no caloric intake for at least 8 hours. Fasting plasma glucose results between 100 to 125 mg/dL indicate increased risk for diabetes (prediabetes). Fasting plasma glucose results greater than or equal to 126 mg/dL meet the criteria for diagnosis of diabetes. In the absence of unequivocal hyperglycemia, results should be confirmed by repeat testing. In a patient with classic symptoms of hyperglycemia or hyperglycemic crisis, random plasma glucose results greater than or equal to 200 mg/dL meet the criteria for diagnosis of diabetes. Reference: Standards of Medical Care in Diabetes 2016, [place] Diabetes Association. Diabetes Care. 2016.39(Suppl 1). LAB 3094-0(LOINC) BUN SerPl-mCnc 7 7-21 mg/ dL LAB 2160-0(LOINC) Creat SerPl-mCnc 0.57 Low 0.58-0.96 mg/dL LAB 2951-2(LOINC) Sodium SerPl-sCnc 136 136-144 mmol/L LAB 2823-3(LOINC) Potassium SerPl-sCnc 3.8 3.7-5.1 mmol/L LAB 2075-0(LOINC) Chloride SerPl-sCnc 103 98-107 mmol/L LAB 2028-9(LOINC) CO2 SerPl-sCnc 24 22-30 mmo l/L LAB 98210-6(LOINC) Anion Gap SerPl-sCnc 9 8-15 mmol/L LAB 12776-8(LOINC) Creatinine + eGFR Pnl SerPlBld 128 >=60 mL/min/1 .73m??? Result Comment: Estimated Gl omerular Filtration Rate (eGFR) is calculated using the 2020 CKD-EPI creatinine equation. This equation utilizes serum creatinine, sex, and age as parameters. The creatinine assay has traceable calibration to isotope dilution-mass spectrometry. Refer to KDIGO guidelines for clinical interpretation. In patients with unstable renal function, e.g. those with acute kidney injury, the eGFR may not accurately reflect actual GFR. Performed By: #### 89238-7 # ### [facility] CLIA [id number] [address] [place] [address] [place] BILE ACIDS, TOTAL Collected: 5 11:23 AM Status: F Source: [facility] Order Comment: Specimen Type : BLOOD SPECIMEN Ordering Facility: [facility] Address: [address] [id number] TYPE CODE TESTS RESULT OUT OF RANGE REFERENCE UNITS LAB 29873-2(LOINC) Bile Ac SerPl-sCnc 3.7 <7.5 umol/L Result Comment: Reference in terval applies to fasting specimens. The total serum bile acid concentration is increased after meals; hence, samples should be collected under fasting conditions, when possible. This does not apply to patients for whom intrahepatic cholestasis of as a diagnostic consideration; these patients will need peak bile acid testing, and samples should be postprandial. This serum bile acid assay should not be used for patients receiving ursodeoxycholic acid, nor should it be used as the primary assay for the screening or diagnosis of genetic disorders of bile acid metabolism. Patient Reference Intervals: 0 Days to 5 Months: Not established 6 Months to 23 Months: <25.8 umol/L 2 Years to 4 Years: <20.9 umol/L 5 Years to 9 Years: <12.4 umol/L 10 Years to 19 Years: <13.6 umol/L 20 Years to 59 Years: <7.5 umol/L >=60 Years: <8.3 umol/L Reference Intervals (Non-fasting): First Trimester (up to 13 weeks gestation): < 15.3 umol/L Reference Interval (Non-fasting): Second Trimester (13 - 27 weeks gestation): < 11.4 umol/L Reference Interval (Non-fasting): Third Trimester (> 27 weeks gestation): < 10.4 umol/L Performed By: #### BILETO ## ## [facility] CLIA [id number] [address] [place] [address] [place] TYPE + SCREEN Collected: 04/01/2024 12:02 PM Status: F Source: [facility] Order Comment: Specimen Type : BLOOD SPECIMEN Ordering Facility: [facility] Address: [address] [place] [address] TYPE CODE TESTS RESULT OUT OF RANGE REFERENCE UNITS LAB [id number] ABO A LAB [id number] RH Positive LAB [id number] ANTIBODY SCREEN Negative LAB [id number] TYPE AND SCREEN EXPIRATION 04/04/2024 23:59 Performed By: #### TSPN #### [facility] CLIA [id number] [address] [place] [address] [place] CBC PNL BLD AUTO Collected: 12:02 PM Status: F Source: [facility] Order Comment: Specimen Type : BLOOD SPECIMEN Ordering Facility: [facility] Address: [address] [place] [address] TYPE CODE TESTS RESULT OUT OF RANGE REFERENCE UNITS LAB 6690-2([facility]) WBC # Bld Auto 6.22 3.70-11.00 k/uL LAB 789-8(INC) RBC # Bld Auto 4.56 3.90-5.20 m/uL LAB 718-7([facility]) Hgb Bld-mCnc 13.7 11.5-15.5 g/dL LAB 4544-3([facility]) Hct VFr Bld Auto 40.3 36.0-46.0 % LAB 787-2([facility]) MCV RBC Auto 88.4 80.0-100.0 fL LAB 785-6([facility]) MCH RBC Qn Auto 30.0 26.0-34.0 pg LAB 786-4([facility]) MCHC RBC Auto-mCnc 34.0 30.5-36.0 g/dL LAB 48209-3([facility]) RDW RBC-Rto 12.6 11.5-15.0 % LAB 777-3([facility]) Platelet # Bld Auto 229 150-400 k/uL LAB 50692-4([facility]) PMV Bld Auto 9.9 9.0-12.7 fL LAB 771-6([facility]) nRBC # Bld Auto <0.01 <0.01 k/uL Performed By: #### 41458-7 # ### [facility] CLIA [id number] [address] [place] [address] OF [facility] [id number] PLUS Collected: 04/01/2024 12:02 PM Statu s: F Source: [facility] Order Comment: Specimen Type : BLOOD SPECIMEN Ordering Facility: [facility] Address: [address] [place] [address] TYPE CODE TESTS RESULT OUT OF RANGE REFERENCE UNITS LAB 33870-9(LOINC ) Fet Chr 21 Ts Plas.cfDNA Ql Negative LAB 01465-2(LOINC ) Fet Ts 18 risk WBC.DNA+cfDNA Ql Negative LAB 57838-9(LOINC ) Fet Ts 13 risk Plas.cfDNA Ql Negative LAB 18707-7([facility] ) Fet sex Plas.cfDNA Dosage cfDNA Comment Result Comment: Consistent w ith Female LAB 38411-9([facility] ) Fet Ms X risk WBC.DNA+cfDNA Ql Not Detected LAB 40125-8([facility] ) Fet X + Y aneup risk Plas.cfDNA Seq-Imp Not Detected Result Comment: Not Detected Not Detected LAB 31275-6([facility] ) Fet 13+18+21+X+Y aneup Plas.cfDNA Negative LAB SPPV POSITIVE PREDICTIVE VALUE N/A LAB NEGPREVA NEGATIVE PREDICTIVE VALUE Note Result Comment: The Negative Predictive Value (NPV) for trisomy 21, 18, and 13 is greater than 99%. The NPV for SCA and ESS cannot be calculated as SCA and ESS are only reported when an abnormality is detected. LAB 32085-3([facility] ) cfDNA.fet/cfDNA.to efrain SFr Fetus 18% LAB 74003-4([facility] ) GA Est from conception date Sy LAB SGAG9 GESTATIONALAGE A GE > OR = 9W Yes LAB 14044-5([facility] ) director independent name Provider Comment Result Comment: This specime n showed an expected representation of chromosome 21, 18 and 13 material. Clinical correlation is suggested. Comment El Patel MD, PhD, Director, [employer] LAB 90071-5([facility] ) Ref lab test method Comment Result Comment: See Notes Circulating cell-free DNA was purified from the plasma component of maternal blood. The extracted DNA was then converted into a genomic DNA library for aneuploidy analysis of chromosomes 21, 18, and 13 via next generation sequencing.[1] Optional findings based on the test order include sex chromosome aneuploidy (SCA)[2], and enhanced sequencing series (ESS)[3], which will only be reported on as an additional finding when an abnormality is detected. SCA testing includes information on X and Y representation, while ESS testing includes deletions in selected regions (22q, 15q, 11q, 8q, 5p, 4p, 1p) and trisomy of chromosomes 16 and 22. LAB 39454-1([facility] ) Laboratory comment Report Comment Result Comment: The MaterniT (R) 21 PLUS laboratory-developed test (LDT) analyzes circulating cell-free DNA from a maternal blood sample. This test is used for screening purposes and not diagnostic. Clinical correlation is recommended. Validation data on twin pregnancies is limited and the ability of this test to detect aneuploidy in higher multiple gestations has not yet been validated. LAB 59987-1([facility] ) Test performance info Spec Comment Result Comment: The performa nce characteristics of the MaterniT(R) 21 PLUS laboratory-developed test (LDT) have been determined in a clinical validation study with women at increased risk for chromosomal aneuploidy.[1-4] LAB [facility] PERFORMANCE CHARACTERISTICS Note Result Comment: ! Sex ! Accuracy: 99.4% ! ! ! ! Region (associated syndrome) ! Est. Sens# ! Est. Spec ! ! ! ! Trisomy 21 (Down Syndrome) ! 99.1% ! 99.9% ! ! ! ! Trisomy 18 (Dickson Syndrome) ! >99.9% ! 99.6% ! ! ! ! Trisomy 13 (Patau Syndrome) ! 91.7% ! 99.7% ! ! ! ! Sex Chromosome Aneuploidies## ! 96.2% ! 99.7% ! ! ! * As reported in ISCA database nstd37 [https://www.ncbi.nlm.nih.gov/dbvar/studies/nstd37/ ] # Estimated Sensitivity. Sensitivity estimated across the observed size distribution of each syndrome [per ISCA database nstd37] and across the range of fractions observed in routine clinical NIPT. Actual sensitivity can also be influenced by other factors such as the size of the event, total sequence counts, amplification bias, or sequence bias. ## Sy gestation only. LAB MTLMT LIMITATIONS OF T HE TEST Comment Result Comment: While the re sults of these tests are highly reliable, discordant results, including inaccurate sex prediction, may occur due to placental, maternal, or mosaicism or neoplasm; vanishing twin; prior maternal organ transplant; or other causes. These tests are screening tests and not diagnostic; they do not replace the accuracy and precision of diagnosis with CVS or amniocentesis. A patient with a positive test result should be referred for genetic counseling and offered invasive diagnosis for confirmation of test results.[5] The results of this testing, including the benefits and limitations, should be discussed with a qualified healthcare provider. management decisions, including termination of the , should not be based on the results of these tests alone. The healthcare provider is responsible for the use of this information in the management of their patient. Sex chromosomal aneuploidies are not reportable for known multiple gestations. A negative result does not ensure an unaffected nor does it exclude the possibility of other chromosomal abnormalities or defects which are not a part of these tests. An uninformative result may be reported, the causes of which may include, but are not limited to, insufficient sequencing coverage, noise or artifacts in the region, amplification or sequencing bias, or insufficient fraction. These tests are not intended to identify pregnancies at risk for neural tube defects or ventral wall defects. Testing for whole chromosome abnormalities (including sex chromosomes) and for subchromosomal abnormalities could lead to the potential discovery of both and maternal genomic abnormalities that could have major, minor, or no, clinical significance. Evaluating the significance of a positive or a non-reportable result may involve both invasive testing and additional studies on the mother. Such investigations may lead to a diagnosis of maternal chromosomal or subchromosomal abnormalities, which on occasion may be associated with benign or malignant maternal neoplasms. These tests may not accurately identify triploidy, balanced rearrangements, or the precise location of subchromosomal duplications or deletions; these may be detected by diagnosis with CVS or amniocentesis. The ability to report results may be impacted by maternal BMI, maternal weight, maternal systemic lupus erythematosus (SLE) and/or by certain pharmaceutical agents such as low molecular weight heparin (for example: Lovenox(R), Xaparin(R), Clexane(R) and Fragmin(R)). LAB MTNTE NOTE Comment Result Comment: See Notes [employer]. is a subsidiary of [employer], using the brand [facility]. This test was developed and its performance characteristics determined by [facility]. It has not been cleared or approved by the Food and Drug Administration. This laboratory is certified under the Clinical Laboratory Improvement Amendments (CLIA) as qualified to perform high complexity clinical laboratory testing and accredited by the College of [place] [employer] (CAP). If there is future clinical need for adding MaterniT GENOME testing, this specimen will be available until term. [facility] samples will not be retained beyond 60 days. [facility] patients will have to send a new sample for re-sequencing ([facility] Test Code: 424194). LAB 16799-7([facility] ) Citation Ref Lab Test Comment Result Comment: 1. Ricardo SIMPSON, et al. Denita Med. 2012;14(3):296-305. 2. Marisol MOMIN, et al. Prenat Diag. 2013;33(6):591-597. 3. Je Kenny, et al. Clin Chem. 2015 Aug;61(4):608-616. 4. Ricardo SIMPSON et al. Denita Med. 2011;13(11):913-920. 5. ACOG/SMFM Practice Bulletin No. 226, Feb 2020. Performed By: #### [id number] ### # [facility] CLIA [id number] [address] [place] [address] HGB EVALUATION CASCADE INTERP Collected: 04/01/2024 1 2:02 PM Status: F Source: [facility] Comment: Specimen Type : BLOOD SPECIMEN Ordering Facility: [facility] Address: [address] [place] [address] TYPE CODE TESTS RESULT OUT OF RANGE REFERENCE UNITS LAB HBINTEVAL INTERPRETATION (HGB EVAL) Result Comment: Hemoglobins were analyzed by capillary electrophoresis and CBC red cell parameters were reviewed. No abnormal hemoglobin is identified. There is a normal hemoglobin capillary electrophoresis pattern. LAB 96535-9(LOINC ) Hgb Fract Bld-Imp Reviewed by Chris Butt MD, PhD Performed By: #### PRAVEEN, [id number] #### [facility] CLIA [id number] [address] [place] [address] [place] HGB ELECTROPHORESIS FOR EVAL (LAB ORDER) Collected: 04/01/2024 12:02 PM Status: F Source: [facility] Comment: Specimen Type : BLOOD SPECIMEN Ordering Facility: [facility] Address: [address] [place] [address] TYPE CODE TESTS RESULT OUT OF RANGE REFERENCE UNITS LAB 4546-8(LOINC) Hgb A MFr Bld 97.1 96.2-98.0 % LAB 4576-5(LOINC) Hgb F MFr Bld 0.3 0.0-0.9 % LAB 4551-8(LOINC) Hgb A2 MFr Bld 2.6 2.0-3.1 % LAB 38895-7(LOINC) Hgb XXX MFr Bld Elph No abnormal hemoglobin identified. No abnormal hemoglobin identified. Performed By: #### HGYAMILEX, [id number] #### [facility] CLIA [id number] [address] [place] [address] [place] RBC PARAMETERS FOR HB ID Collected: 12/2023 12:02 PM Status: F Source: [facility] Order Comment: Specimen Type : BLOOD SPECIMEN Ordering Facility: [facility] Address: [address] [place] [address] TYPE CODE TESTS RESULT OUT OF RANGE REFERENCE UNITS LAB 789-8([facility]) RBC # Bld Auto 4.54 3.90-5.20 m/uL LAB 718-7([facility]) Hgb Bld-mCnc 13.6 11.5-15.5 g/dL LAB 4544-3([facility]) Hct VFr Bld Auto 41.7 36.0-46.0 % LAB 787-2(LOINC) MCV RBC Auto 91.9 80.0-100.0 fL LAB 785-6([facility]) MCH RBC Qn Auto 30.0 26.0-34.0 pg LAB 786-4([facility]) MCHC RBC Auto-mCnc 32.6 30.5-36.0 g/dL LAB 26916-4([facility]) RDW RBC-Rto 13.0 11.5-15.0 % Performed By: #### [id number] # ### [facility] CLIA [id number] [address] [place] [address] OF [facility] DEPRECATED HGB A1C BLD Collected: 04/01 12:02 PM Status: F Source: [facility] Order Comment: Specimen Type : BLOOD SPECIMEN Ordering Facility: [facility] Address: [address] [place] [address] TYPE CODE TESTS RESULT OUT OF RANGE REFERENCE UNITS LAB 4548-4([facility]) HbA1c MFr Bld 4.4 4.3-5.6 % Result Comment: [place] Arielle betes Association guidelines indicate that patients with HgbA1c in the range 5.7-6.4% are at increased risk for development of diabetes, and intervention by lifestyle modification may be beneficial. HgbA1c greater or equal to 6.5% is considered diagnostic of diabetes. LAB 92379-0(INC) Est. average glucose Bld gHb Est-mCnc 80 mg/dL Result Comment: eAG: (Estima juan david average glucose) is a calculated value from HgbA1c and is telemarketing representative of the average blood glucose level in the last 2-3 month period. Performed By: #### 52249-9 # ### [facility] CLIA [id number] [address] [place] [address] [place] HCV AB SER QL Collected: 12:02 PM Status: F Source: [facility] Comment: Specimen Type : BLOOD SPECIMEN Ordering Facility: [facility] Address: [address] [place] [address] TYPE CODE TESTS RESULT OUT OF RANGE REFERENCE UNITS LAB 38704-4(LOINC) HCV Ab Ser Ql Negative Negative Result Comment: The result s uggests no evidence of active infection with Hepatitis C virus. Should recent infection be suspected, repeat testing may be considered 4- 6 weeks after this draw. Performed By: #### 36506-1 # ### [facility] CLIA [id number] [address] [place] [address] RUBELLA IGG ANTIBODY Collected: 12:02 PM Status: F Source: [facility] Comment: Specimen Type : BLOOD SPECIMEN Ordering Facility: [facility] Address: [address] [place] [address] TYPE CODE TESTS RESULT OUT OF RANGE REFERENCE UNITS LAB RUBGQL RUBELLA IGG AB, QUAL Positive Positive Result Comment: The result s uggests recent or past exposure to Rubella virus or history of Rubella vaccination. Positive result may also be seen due to presence of passively-transferred antibodies. Please correlate with patient's history. Performed By: #### RUBIGG ## ## [facility] CLIA [id number] [address] [place] [address] [place] HBV SURFACE AG SER QL Collected: 2023 12:02 PM Status: F Source: [facility] Comment: Specimen Type : BLOOD SPECIMEN Ordering Facility: [facility] Address: [address] [place] [address] TYPE CODE TESTS RESULT OUT OF RANGE REFERENCE UNITS LAB 5195-3(LOINC) HBV surface Ag Ser Ql Negative Negative Performed By: #### 85101-3, 5195-3, 39545-7 #### [facility] CLIA [id number] [address] [place], [place] [address] [place] HIV1+2 AB SERPL QL IA Collected: 2023 12:02 PM Status: F Source: [facility] Comment: Specimen Type : BLOOD SPECIMEN Ordering Facility: [facility] Address: [address] [place], [place] [address] TYPE CODE TESTS RESULT OUT OF RANGE REFERENCE UNITS LAB 78527-5(LOINC) HIV 1+2 Ab+HIV1 p24 Ag SerPl Ql IA Nonreactive Nonreactive LAB 98593-0(LOINC) HIV 1 AND 2 Ab SerPlBld IA.rapid Result Comment: Test not ind icated. LAB 34869-1(LOINC) HIV IA algorithm interp SerPlBld-Imp Result Comment: No evidence of HIV-1 or HIV-2 infection. Should recent infection be suspected, repeat testing may be considered 2-3 weeks after this draw. [place] Rev. Code 3701.243(E): This information has been disclosed to you from confidential records protected from disclosure by state law. ???You shall make no further disclosure of this information without the specific, written, and informed release of the individual to whom it pertains or as otherwise permitted by state law. A general authorization for the release of medical or other information is not sufficient for the purpose of the release of HIV test results or diagnoses. Performed By: #### 08702-7, 5195-3, 41117-1 #### [facility] CLIA [id number] [address] [place] [address] [place] REAGIN+T PALLIDUM IGG+IGM SERPL-IMP Collected: 04/01/2024 12:02 PM Status: F Source: [facility] Comment: Specimen Type : BLOOD SPECIMEN Ordering Facility: [facility] Address: [address] [place] [address] TYPE CODE TESTS RESULT OUT OF RANGE REFERENCE UNITS LAB 07653-4(LOINC) T pallidum IgG+IgM Ser Ql IA Nonreactive Nonreactive LAB 61675-8(INC) Reagin+T pallidum IgG+IgM SerPl-Imp Cannot exclude recent Treponemal infection if specimen collected within 7-10 days after appearance of suspect lesions or 2-3 weeks after an exposure. Clinical correlation is required. Performed By: #### 89746-3, 5195-3, 37509-2 #### [facility] CLIA [id number] [address] [place] [address] [place] BACTERIA UR CULT Observed: 03/18/2024 10:01 AM Status: F Source: [facility] CULTURE, URINE: No growth (<1,000 CFU/ml) Performed By: #### 630-4 ### # [facility] CLIA [id number] [address] [place] [address] [place] C TRACH+GC DNA SPEC QL JESSI+PROBE Collected: 03/18/2024 10:01 AM Status: F Source: [facility] Comment: Specimen Type : SWAB Ordering Facility: [facility] Address: [address] [place] [address] TYPE CODE TESTS RESULT OUT OF RANGE REFERENCE UNITS LAB 23601-1(LOINC ) N gonorrhoea rRNA Spec Ql JESSI+probe Negative for Neisseria gonorrhoeae by amplification Negative for Neisseria gonorrhoeae by amplification LAB 83765-0(LOINC ) C trach rRNA Spec Ql JESSI+probe Negative for Chlamydia trachomatis by amplification Negative for Chlamydia trachomatis by amplificaton Performed By: #### 57470-2 # ### [facility] CLIA [id number] [address] [place] [address] [place] PAP TEST Collected: 10:01 AM Status: F Source: [facility] Order Comment: Specimen Type : FLUID SPECIMEN Ordering Facility: [facility] Address: [address] [place] [address] TYPE CODE TESTS RESULT OUT OF RANGE REFERENCE UNITS PATHOLOGY [id number] CASE REPORT Result Comment: Gynecologic Cytology Report Case: [id number] Authorizing Provider: Verenice Delacruz APRN.FERTILIZER PROCESSING SUPERVISOR Collected: 03/18/2024 10:01 AM Ordering Location: OB/Gynecology Received: 03/18/2024 12:17 PM First Screen: Ramin, Genesis, CT, ASCP Specimen: Pap Test, ThinPrep, Cervix PATHOLOGY [id number] ADEQUACY Result Comment: Satisfactory for interpretation. No endocervical component PATHOLOGY [id number] INTERPRETATIO N, CYTOLOGY, RUBY SOFTWARE DEVELOPER Result Comment: Negative for intraepithelial lesion or malignancy. OLOGY [id number] CLINICAL HISTORY, CYTOLOGY, RUBY SOFTWARE DEVELOPER (Indicate Weeks) Result Comment: 8 weeks PATHOLOGY [id number] LMP 01/18/2024 PATHOLOGY PAPDC PAP DISCLAIMER COMMENT The Pap Smear is a screening test for cervical cancer. False negative results occur with all screening tests, emphasizing the need for rescreening at recommended intervals, and clinical correlation. PATHOLOGY PAPIC PAP MANAGER OF PHARMACY COMMENT This specimen has been analyzed by the ThinPrep Imaging System, an automated imaging and review system, which assists the laboratory in evaluating cells on ThinPrep Pap tests. Following automated imaging, selected acosta from every slide are reviewed by a cytotechnologi PATHOLOGY [facility] FINAL PERFORMING LAB Result Comment: Technical co williams, furnace hand screening performed at [place] [address] CLIA# [id number] Diagnostic interpretation performed at [place] [address] CLIA# [id number] Pipe Line Inspector: Alfie Jacob M.D. Performed By: #### [id number] # ### [facility] CLIA [id number] [address] [place] [address] [place] PROGRESS Observed: 03/16/2024 3:51 PM Status: COMPLETED Source: [facility] HNO ID: [id number] Author: VERENICE DELACRUZ APRN.FERTILIZER PROCESSING SUPERVISOR Service: ? Author Type: Nurse Practitioner Type: Progress Notes Filed: 03/18/2024 10:04 Note Text: Roaster Helper offered: Patient declines. INITIAL OB ASSESSMENT HPI: Palmer is a 28 year old White Female here to establish Obstetrical Care. Patient's last menstrual period was 01/18/2024 (exact date). from OB Dating Form. was planned Complaints: No OB History T1 L1 SAB1 IAB0 Ectopic0 Multiple0 Live Births1 # 1 - Date: 01/02/22, Sex: None, Weight: None, GA: 6w0d, Type: None, Apgar1: None, Apgar5: None, Living: None, Comments: No DANDC # 2 - Date: 12/09/22, Sex: Male, Weight: 3.23 kg (7 lb 1.9 oz), GA: 38w3d, Type: , Low Vertical, Apgar1: 9, Apgar5: 9, Living: Living, Comments: kidney stone during , SROM, elective primary c/s, EBL 700mL # 3 - Date: None, Sex: None, Weight: None, GA: None, Type: None, Apgar1: None, Apgar5: None, Living: None, Comments: None Previous history: Prior : yes x 1 History of 4th degree laceration: No History of shoulder dystocia: No History of Hypertensive disorders including pre-eclampsia or gestational hypertension: No History of gestational diabetes: No Patient's Risk Screening for delivery: Have you had a prior sy between 20w and 36w6d? No How many pregnancies have you had before? 1 Did you have a previous baby with a GBS Infection? No Please select all that apply for any prior : N/A MEDICAL/PSYCHOSOCIAL HISTORY: History of hemorrhage or bleeding concerns: No Thyroid Disease: No History of chronic hypertension: No History of pre-existing diabetes: No No results found for: ABORHD No weight on file for this encounter. Last Pap: 02/04/2023 History of abnormal pap: No Prior treatment for cervical dysplasia: none. Last HPV: History of STDs: HSV Partner History of STDs: None Did you have a partner with Herpes? (!) Yes Tobacco use: No E-Cigarette/Vaping Use: No Caffeine use: No Drug use: No Alcohol use: No Multivitamin with Folic acid: Yes Would refuse blood transfusion if medically necessary: No Social Needs: How often does this describe you? I don't have enough money to pay my bills: Never Within the past 12 months, have you worried that your food would run out before you had money to buy more? Never In the past 12 months, has lack of reliable transportation kept you from going to medical appointments or work, or from getting things needed for daily living? Never In the past 12 months, have you had any concerns about having a place to live, or about the condition or quality of your housing? Never Would you like more information on any of the following (please check all that apply)? Not interested Social History: Do you have any history of depression, anxiety, PTSD, or other mood problems? No Do you have a history of abuse or trauma that may impact your experience? 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 OB Depression and Anxiety Screening- This Encounter (since 03/15/2024) Over the past 2 weeks have you felt down, depressed, or hopeless? Negative Over the past two weeks, have you felt little interest or pleasure in doing things?? Negative Feeling nervous, anxious or on edge 0-Not at all Not being able to stop or control worrying 0-Not al all Anxiety Pre-Screening Total (If >/= 3 additional questions will be reviewed) 0 Genetic Screening: Partner present: No Patient verbalized knowledge of partner family health history: Yes Do you or your partner have any personal or family history of defects not previously discussed: No Do you have history of a complicated by anomaly, genetic condition, or demise: No OB Risk Screening: Completed, positive findings include: Patient answered 'Yes' to Partner with Herpes Marital Status: Partner: Name: Shahriar Ellis Age: 27 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 [employer] Gender: Male PAST MEDICAL HISTORY Diagnosis Date Abdominal pain, right lower quadrant Suspected ruptured ovarian cyst Acute appendicitis without mention of peritonitis 03/25/2011 Dysmenorrhea HSV (herpes simplex virus) anogenital infection 2017 Kidney stone 2022 Miscarriage PMH - PAST MEDICAL HISTORY OF 11/06/2001 color vision - normal PMH - PAST MEDICAL HISTORY OF Started Menstrual Period 04/02 PAST SURGICAL HISTORY Procedure Laterality Date DELIVERY ONLY 12/09/2022 LTCS DANDC, DIAG AND/OR THERAPEUTIC 11/29/2020 hysteroscopy DANDC at [facility] LAPAROSCOPIC APPENDECTOMY 03/25/2011 Current Outpatient Medications Medication Sig Dispense Refill prental multivitamin 27 mg iron- 800 mcg tablet Take 1 tablet by mouth once daily. No current facility-administered medications for this visit. Allergies As of Date: 03/18/2024 Allergen Noted Reaction BEE VENOM PROTEIN (HONEY BEE) 05/08/2022 Swelling and Itching Fully Assessed 01/27/2023 Does patient have penicillin allergy: No REVIEW OF SYSTEMS: GENERAL: Negative for: Fever or Chills HEENT: Negative for: Headache, Impaired Vision, Ringing in Ears, Nosebleeds NECK: Negative for: Swelling, Pain, Stiffness RESPIRATORY: Negative for: Cough, Shortness of breath, Wheezing GASTROINTESTINAL: Negative for: Heartburn, Constipation, Diarrhea, Blood in stool, Vomiting MUSCULOSKELETAL: Negative for: Muscle or joint pain, stiffness, Joint swelling NEUROLOGIC/PSYCHIATRIC: Negative for: Weakness, Paralysis, Numbness, Tingling, Tremor, Anxiety, Depression, Memory loss SKIN: Negative for: Rash, Itching GENITOURINARY: Negative for: vaginal itching, vaginal discharge, hematuria or dysuria SENSITIVE EXAM: The sensitive examination was discussed with the Patient or Patient's Authorized Wood Bucker. As applicable, any other physician, advance practice provider, medical student, or other health professional student that will be observing or involved in the sensitive examination for educational or training purposes was discussed with the Patient or Authorized Wood Bucker. The Patient or Authorized Wood Bucker has agreed to proceed with the sensitive examination. (Sensitive examination includes inspection and/or palpation of the breasts, pelvis, prostate and anorectal regions). PHYSICAL EXAM: BP 96/54 Ht 5' 5.906 (1.67m) Wt 137 lb (62.1kg) LMP 01/18/2024 BMI 22.18 kg/(m2). GENERAL: pleasant in no apparent distress DERMATOLOGY: Normal, without lesions, non-icteric, and non-hirsute NECK: Supple, full range of motion, no adenopathy, and thyroid normal CHEST: Normal inspiratory effort BREAST: soft, non-tender, symmetric, no dominant mass, normal nipple-areolar complex, no lymphadenopathy, and no nipple discharge ABDOMEN: soft, non-tender, and no masses NEURO: alert and oriented x3,exam grossly non-focal PELVIS: External genitalia normal without lesions. Perineal body intact. No vaginal or cervical lesions. Cervix closed. Uterus 8 week size. No adnexal masses or tenderness. Clinical Pelvimetry: Pelvimetry clinically assessed as adequate Limited OB ultrasound exam: single intrauterine and positive cardiac activity ASSESSMENT: 28 year old at 8w2d wks gestational age PLAN: 1) Patient oriented to practice. Patient given new OB orientation folder. Discussed nutrition, folic acid supplementation, dietary guidelines, exercise, smoking, alcohol, caffeine, and drug use. Discussed gestational weight gain guidelines. Discussed routine OB labs including STD/HIV. Discussed how to access Your guide to a health and the Operations Management Trainee. Discussed hemoglobin electrophoresis. Patient: Accepts Reviewed midwifery and plastics and composites inspector services that are available. 2) Screening: Hemoglobin A1C: ordered Baby Aspirin: The patient has been counseled about the potential benefits of low dose aspirin in and our recommendation that this be offered to all patients, regardless of whether they meet the high risk criteria specified above. She Accepts Aneuploidy Screening: Discussed aneuploidy screening, nuchal translucency/first trimester early anatomy ultrasound and NIPT. The risks/benefits and limitations of NIPT/aneuploidy screening were reviewed including the potential for false negative and false positive results. The availability of genetic counseling was reviewed. Information on aneuploidy screening was provided. The patient chooses to proceed with First trimester early anatomy ultrasound (12-13w6d) and NIPT (10 weeks) Myriad Carrier Screening: Discussed myriad carrier screening. We discussed the availability of professional-society guided carrier screening and reviewed the conditions screened and limitations of screening. The availability of genetic counseling was reviewed. Information on carrier screening was provided. The patient is uncertain 3) Patient offered option of Virtual Visits. Patient unsure. May consider in future. ACTIVE PROBLEM LIST Encounter for Supervision of High Risk in First Trimester, Antepartum - 03/18/2024 Comment: Care Checklist Vaccines: [] Flu vaccine [] declined [] RSV vaccine 32 0/7 - 36 6/7 (Jan - Jun) [] declined [] COVID vaccine [] declined [] TDaP 27-36 [] declined First trimester: [x] Dating US [] 1st tri labs [x] Pap smear [] Carrier screening [] declined [x] NIPT screening [] declined [x] First trimester anatomy scan [] declined [] universal ASA ordered (start 12w-16w) [] declined [] M Power Consult [] not indicated [] declined Second trimester: [] AFP [] declined [] Anatomy scan [] Mode of Delivery - [] Feeding - [] Pump ordered [] Diabetes screen [] CBC, RPR Third trimester (28-30 weeks): [] Consent [] Contraception - [] Blast Hole Driller Third trimester (36-40 weeks): [] GBS [] Presentation - [] Scheduled [] yes - Hibiclens, pre-op instructions, CBC, TANDS ordered [] no [] HANDP History of Herpes Genitalis - 03/18/2024 Comment: March 18, 2024 Plan for suppression therapy at 36 weeks. Verenice Delacruz APRN.DOMENIC History of Section - 03/18/2024 Comment: March 18, 2024 Elective primary c/s. Plans for repeat. Verenice Delacruz APRN.FERTILIZER PROCESSING SUPERVISOR Cervical Polyp - 03/18/2024 Comment: March 18, 2024 Noted at 12:00 position with new OB exam. Not pedunculated. Pap done. Verenice Delacruz APRN.FERTILIZER PROCESSING SUPERVISOR Nausea and Vomiting During - 03/18/2024 Comment: 03/18/24 Vitamin B6 and Unisom doses reviewed. To notify if prescription is needed. Verenice Delacruz APRN.CNP History of Miscarriage - 03/18/2024 Comment: March 18, 20242021, SAB Follow up in 4 weeks or sooner prn. Plan for NT scan between 12w0d and 13w6d gestation. Veernice Delacruz APRN.FERTILIZER PROCESSING SUPERVISOR CNPN Observed: 03/16/2024 12:00 AM Status: COMPLETED Source: [facility] Telephone (OBGYWM) PALMER LOCKHART ([id number]) 1995 F Date Time Provider Department 03/16/24 VERENICE DELACRUZ OBGYWM During your visit today, we recorded the following information about you: Lucia Castro RN 03/16/2024 2:27 PM Signed Atempted to call patient for intake of new OB questions. We had read to a time up to 15 today. Attempted to call patient twice with no answer. Message left. Lucia Castro RN 03/16/2024 3:58 PM Signed Called patient and completed questions Allergies As of Date: 03/16/2024 Noted Allergy Reaction BEE VENOM PROTEIN (HONEY BEE) 05/08/2022 7 - Swelling 9 - Itching Comments: Bee stings Date Reviewed: 01/27/2023 Reviewed by: Maxwell Birmingham MD - Fully Assessed Reason for Visit: Appointment [186] Prescriptions as of 03/16/2024 - prental multivitamin 27 mg iron- 800 mcg tablet Take 1 tablet by mouth once daily. Problem List As Of Date 03/16/2024 Noted Resolved Acute appendicitis without mention of peritonit*03/25/2011 10/28/2022 Dysmenorrhea [N94.6] 03/16/2012 10/28/2022 HSV (herpes simplex virus) anogenital infection*07/18/2019 12/15/2022 Current with history of spontaneous a*05/08/2022 12/15/2022 Spotting in [O26.859] 05/08/2022 12/15/2022 Family history of defect [Z82.79] 05/08/2022 12/15/2022 Patient request for diagnostic testing [Z01.89] 05/08/2022 12/15/2022 Encounter for supervision of other normal pregn*10/28/2022 12/15/2022 Encounter Status:Closed by LUCIA CASTRO on 03/16/24 ALLERGIES DATE TYPE / CODE NAME / CODE REACTION SEVERITY SOURCE 05/08/2022 DRUG INGREDI/[id number] 3(SNOMED CT) BEE VENOM PROTEIN (HONEY BEE) SWELLING [facility] ENCOUNTERS ADMIT/DISCHARGE ACCOUNT NUMBER ADMITTING ENCOUNTER CLASS LOC ATION SOURCE 11/21/2024/ 5 [id number] [facility] ing:[facility] 10/14/2024/ 5 [id number] Ambulatory [facility] HospitalBuild ing:[facility] 10/07/2024/ 5 [id number] Amb[facility] ing:[facility] 10/04/2024/ 5 [id number] [facility] HospitalBuild ing:[facility] 09/30/2024/ 5 [id number] Ambulatory [facility] HospitalBuild ing:[facility] 09/22/2024 [id number] [facility] HospitalBuild ing:[facility] 09/21/2024/ 5 [id number] Ambulatory [facility] HospitalBuild ing:OGWR [facility] 09/09/2024/ 5 [id number] [facility] HospitalBuild ing:[facility] 08/26/2024/ 5 [id number] [facility] HospitalBuild ing:[facility] 08/26/2024/ 5 [id number] [facility] HospitalBuild ing:OGWR [facility] 08/12/2024/ 5 [id number] [facility] HospitalBuild ing:[facility] 08/06/2024/ 5 [id number] [facility] HospitalBuild ing:WOLB [facility] 07/29/2024/ 5 [id number] [facility] HospitalBuild ing:[facility] 07/29/2024/ 5 [id number] [facility] HospitalBuild ing:WOL2 [facility] 07/27/2024/ 5 [id number] [facility] HospitalBuild ing:WOL2 [facility] 07/27/2024/ 5 [id number] [facility] HospitalBuild ing:[facility] 07/01/2024/ 5 [id number] [facility] HospitalBuild ing:[facility] 06/03/2024/ 5 [id number] [facility] HospitalBuild ing:[facility] 06/03/2024/ 5 [id number] [facility] HospitalBuild ing:OGWR [facility] 04/22/2024/ 4 [id number] [facility] HospitalBuild ing:[facility] 04/22/2024/ 4 [id number] [facility] HospitalBuild ing:OGWR [facility] 04/01/2024/ 4 [id number] [facility] HospitalBuild ing:WOL2 [facility] 03/18/2024/ 4 [id number] [facility] HospitalBuild ing:[facility] PAYERS ENCOUNTER GUARANTOR PAYER SUBSCRIBER SOURCE 11/21/2024 Primary Insuranc e:BLUE ACCESS PPOPolicy Number: [id number] Date:5898-64-83Xnfk Name:Christian EDWARDS: [id number] [place] [address] [facility] 10/14/2024 Primary Insuranc e:[facility] CHOICE PLUSPolicy Number: [id number] Date:9156-00-24Tdhi Name:Cheko MURRIETAB: [id number] [place] [address] [facility] 10/07/2024 Primary Insuranc e:[employer] CHOICE PLUSPolicy Number: [id number] Date:8813-41-40Bzro Name:Cheko VASQUEZ: [id number] [place] [address] [facility] 10/04/2024 Primary Insuranc e:UHC CHOICE PLUSPolicy Number: [id number] Date:9911-23-22Ddpj Name:Cheko VASQUEZ: [id number] [place] [address] [facility] 09/30/2024 Primary Insuranc e:UHC CHOICE PLUSPolicy Number: [id number] Date:9518-30-86Qoiy Name:Cheko VASQUEZ: [id number] [place] [address] [facility] 09/22/2024 Primary Insuranc e:UHC CHOICE PLUSPolicy Number: [id number] Date:4442-81-79Mqfo Name:Cheko LOCKHARTB: [id number] [place] [address] [facility] 09/21/2024 Primary Insuranc e:UHC CHOICE PLUSPolicy Number: [id number] Date:3786-44-93Dufc Name:Cheko LOCKHARTB: [id number] [place] [address] [facility] 09/09/2024 Primary Insuranc e:[employer]HC CHOICE PLUSPolicy Number: [id number] Date:7829-21-22Cuyv Name:Cheko LOCKHARTB: [id number] [place] [address] [facility] 08/26/2024 Primary Insuranc e:[employer] CHOICE PLUSPolicy Number: [id number] Date:4473-00-45Olox Name:Cheko Storm GLENNYB: [id number] [place] [address] [facility] 08/26/2024 Primary Insuranc e:U[employer] CHOICE PLUSPolicy Number: [id number] Date:2902-11-29Pial Name:Cheko LOCKHARTB: [id number] [place] [address] [facility] 08/12/2024 Primary Insuranc e:UHC CHOICE PLUSPolicy Number: [id number] Date:1912-10-98Xfhs Name:Cheko Storm GLENNYB: [id number] [place] [address] [facility] 08/06/2024 Primary Insuranc e:UHC CHOICE PLUSPolicy Number: [id number] Date:0019-61-10Rkwl Name:Cheko Storm GLENNYB: [id number] [place] [address] [facility] 07/29/2024 Primary Insuranc e:UHC CHOICE PLUSPolicy Number: [id number] Date:8087-32-06Ethd Name:Cheko Storm PEDRO: [id number] [place] [address] [facility] 07/29/2024 Primary Insuranc e:UHC CHOICE PLUSPolicy Number: [id number] Date:3274-84-90Rqpg Name:Cheko Storm GLENNYB: [id number] [facility] [place] [address] [facility] 07/27/2024 Primary Insuranc e:UHC CHOICE PLUSPolicy Number: [id number] Date:8310-62-99Othw Name:Cheko CHAKRABORTY Dotty MURRIETAB: [id number] [place] [address] [facility] 07/27/2024 Primary Insuranc e:UHC CHOICE PLUSPolicy Number: [id number] Date:7906-66-25Wmqo Name:Cheko CHAKRABORTY Dotty VASQUEZ: [id number] [place] [address] [facility] 07/01/2024 Primary Insuranc e:UHC CHOICE PLUSPolicy Number: [id number] Date:5163-05-10Qlli Name:Cheko CHAKRABORTY Dotty MURRIETAB: [id number] [place] [address] [facility] 06/03/2024 Primary Insuranc e:UHC CHOICE PLUSPolicy Number: [id number] Date:3818-04-48Xvrs Name:Cheko CHAKRABORTY Dotty VASQUEZ: [id number] [place] [address] [facility] 06/03/2024 Primary Insuranc e:UHC CHOICE PLUSPolicy Number: [id number] Date:3845-07-35Ymae Name:Cheko PALMER VASQUEZ: [id number] [place] [address] [facility] 04/22/2024 Primary Insuranc e:UHC CHOICE PLUSPolicy Number: [id number] Date:4457-69-98Tofd Name:Cheko VASQUEZ: [id number] [place] [address] [facility] 04/22/2024 Primary Insuranc e:UHC CHOICE PLUSPolicy Number: [id number] Date:5913-21-99Jwtb Name:Cheko VASQUEZ: [id number] [place] [address] [facility] 04/01/2024 Primary Insuranc e:C CHOICE PLUSPolicy Number: [id number] Date:0734-37-33Emoj Name:Cheko VASQUEZ: [id number] [place] [address] [facility] 03/18/2024 Primary Insuranc e:C CHOICE PLUSPolicy Number: [id number] Date:2489-48-71Usme Name:Cheko VASQUEZ: [id number] [place] [address] [facility]
--- NOTE | 2025-02-20 12:51 | NM_ITS ---
PROCEDURE: HEPATOBILLIARY IMG W/PHARM INT 02/20/2025 REASON FOR EXAM: RUQ PAIN TECHNIQUE: Procedure Code: [id number] Modality: NM Procedure: HEPATOBILLIARY IMG W/PHARM INT, with gallbladder ejection fraction. Intravenous Choletec with planar imaging of the abdomen. RADIOPHARMACEUTICAL: Intravenous administration of 5.3 mCi technetium 99 M mebrofenin.. For the gallbladder ejection fraction, intravenous administration 1.2 mcg cholecystokinin, over 15 minutes. COMPARISON: Right upper quadrant abdominal ultrasound of 01/31/2025. FINDINGS: Satisfactory hepatic uptake and excretion is seen. Normal gallbladder visualization with the gallbladder identified by 10 minutes. Small bowel activity is seen by 30 minutes. Following cholecystokinin administration, the gallbladder ejection fraction is calculated at 96% of the 30 minute timeframe. NM/Hepatobilliary Img w/Pharm Int IMPRESSION: 1. Normal gallbladder ejection fraction of 96%. 2. Normal nuclear medicine hepatobiliary scan. Reading Location: [id number]
== END | disposition home or self-care (01) ==
LOC: NM 12:50
PROVIDERS: Referring Provider Student in an Organized Health Care Education/Training Program; Visit Provider Student in an Organized Health Care Education/Training Program
DX: R10.11 Right upper quadrant pain (principal)
CPT/HCPCS: 78227; A9537; J2805